=== PATIENT | female | born 2000 | race Caucasian/White ===

== ENCOUNTER 2024-02-11 17:00 | Observation (INO) | payer OTHER, MEDICAID, SELFPAY ==
[2024-02-11 17:15] VITALS: BP 119/68; PULSE 86
[2024-02-11 17:24] LABS: Glucometer 89 mg/dL (74-106)
== END 2024-02-11 17:55 | disposition home or self-care (01) ==
PROVIDERS: Admitting Provider Obstetrics & Gynecology; PCP Family Medicine; Visit Provider Obstetrics & Gynecology
DX: O99.891 Other specified diseases and conditions complicating pregnancy (principal); H53.8 Other visual disturbances; Z3A.33 33 weeks gestation of pregnancy
CPT/HCPCS: 36415; 59025; G0378; G0379

== ENCOUNTER 2024-03-02 16:32 | Observation (INO) | payer OTHER, MEDICAID, SELFPAY ==
--- OUTSIDE RECORDS SUMMARY | 2024-03-02 16:36 | XMS_ITS | CCD ---
Author Organization [facility] Care Team Providers Care Information Systems Security Officer Name Role Phone DEMETRIUS CANTOR Unavailable Unavailable DEMETRIUS CANTOR Unavailable Unavailable RADHIKA MCDONALD Unavailable Unavailable MAVERICK KAISER V Unavailable Unavailable DEMETRIUS CANTOR Unavailable Unavailable Carmen Parker MD Primary Care Provider COLLEEN GARCIA Admitting Unavailable COLLEEN GARCIA Attending Unavailable RADHIKA MCDONALD Primary Care Unavailable RADHIKA MCDONALD Primary Care Unavailable FLOROBEATRIZTONY L Attending Unavailable FLORO, TONY L Attending Unavailable FLORO, TONY L Referring Unavailable FLORO, TONY L Attending Unavailable FLORO, TONY L Attending Unavailable FLORO, TONY L Attending Unavailable FLORO, TONY L Attending Unavailable FLORO, TONY L Referring Unavailable FLORO, TONY L Referring Unavailable FLORO, TONY L Attending Unavailable FLORO, TONY L Attending Unavailable FLORO, TONY L Attending Unavailable Medications Current Medications Medication Drug Class(es) Dates Sig (Normalized) Sig (Original) ondansetron 8 mg disintegrating oral tablet (5 sources) Serotonin-3 Receptor Antagonist Start: 08-17-2023 take 1 tablet by mouth every eight hours for nausea ondansetron ODT (Zofran-ODT) 8 MG disintegrating tablet Indications: Nausea/vomiting in Take 1 tablet (8 mg) by mouth every 8 (eight) hours if needed for nausea or vomiting 30 tablet 1 08/17/2023 Active MV & Min w/FA-DHA ( GUMMIES PO) (5 sources) MV & Mi n w/FA-DHA ( GUMMIES PO) Take by mouth 0 Active Problems Active Problems Problem Classification Problem Date Documented Da te Episodic/Chronic Menstrual disorders (2 sources) Amenorrhea; Translations: [Amenorrhea, unspecified] 08-17-2023 Chronic Other complications of (2 sources) Nausea and vomiting; Translations: [Vomiting of , unspecified] 08-17-2023 Episodic Other complications of (1 source) Injury, poisoning and certain other consequences of external causes complicating , second trimester; Translations: [Injury, poisoning and certain other consequences of external causes complicating , second trimester] Onset: 12-04-2023 Episodic Other and delivery including normal (2 sources) Second trimester ; Translations: [Encounter for supervision of normal first , second trimester] 10-12-2023 Episodic Other screening for suspected conditions (not mental disorders or infectious disease) (2 sources) Patient encounter status; Translations: [Encounter for other specified screening] 10-12-2023 Episodic Residual codes; unclassified (2 sources) Gestation period, 8 weeks; Translations: [8 weeks gestation of ] 08-17-2023 Episodic Unclassified (1 source) Abdominal Pain Onset: 12-04-2023 Unclassified (1 source) Abdominal Injury Onset: 12-04-2023 Past or Other Problems Problem Classification Problem Date Documented Da te Episodic/Chronic Cardiac dysrhythmias (5 sources) Tachycardia, unspecified; Translations: [Palpitations] Onset: 06-09-2017 Episodic Results Test Name Value Interpretation Reference Range Facility US OB FOLLOW UP TRANSABDOMIN AL APPROACHon 01-18-2024 OB FOLLOW UP TRANSABDOMINAL APPROACH FINDINGS: A single, live intrauterine is present with normal cardiac rate of 143 beats per minute. Normal activity and amniotic fluid volume. Amniotic fluid index is 17 cm. Morphology is grossly normal. The cervix is long and closed, 4.0 cm. The placenta is left posterior, not associated with the cervical os. The current sonographic age is 30 weeks and 5 days, based on the following measurements: BPD 7.8 cm (31 weeks, 2 days) Head Circumference 28.0 cm (30 weeks, 5 days) Abdominal Circumference 26.7 cm (30 weeks, 5 days) Femur Length 5.8 cm (30 weeks, 3 days) Presentation Cephalic Placenta Posterior Grade I Weight (g) by Percentile 46.0 % * These measurements result in an estimated date of delivery of March 23, 2024. The current estimated weight is 1620 grams (3 pounds, 9 ounces). IMPRESSION: Single, live intrauterine , current sonographic age of 30 weeks and 5 days, with an estimated date of delivery of March 23, 2024 * Estimated Weight (g) by Percentile is based upon an accurate estimated age based on last menstrual period. TRANSCRIBED BY: ELECTRONICALLY SIGNED BY: Vito Park MD Normal Not Available URN MACROSCOPIC NURon 2023 BILIRUBIN HIEN Negative Normal NEG [facility] Comment on above: Performed By: #### N UM #### [facility] ([id number]) [address] [place] [address] BLOOD/HGB HIEN Negative Normal NEG [facility] Comment on above: Performed By: #### N UM #### [facility] ([id number]) [address] [place] [address] 92487 GLUCOSE HIEN 100 mg/dL Abnormal NEG [facility] Comment on above: Performed By: #### N UM #### [facility] ([id number]) [address] [place] [address] 23006 KETONES HIEN Negative Normal NEG [facility] Comment on above: Performed By: #### N UM #### [facility] ([id number]) [address] [place] [address] 65796 LEUKOCYTE ESTERASE HIEN Small Abnormal NEG [facility] Comment on above: Performed By: #### N UM #### [facility] ([id number]) [address] [place] [address] NITRITE HIEN Negative Normal NEG [facility] Comment on above: Performed By: #### N UM #### [facility] ([id number]) [address] [place] [address] 30397 PH HIEN 7.0 Normal 5.0-8.5 [facility] Comment on above: Performed By: #### N UM #### [facility] ([id number]) [address] [place] [address] PROTEIN HIEN Negative Normal NEG [facility] Comment on above: Performed By: #### N UM #### [facility] ([id number]) [address] [place] [address] SPECIFIC GRAVITY HIEN 1.020 Normal 1.003-1.035 [facility] Comment on above: Performed By: #### N UM #### [facility] ([id number]) [address] [place] [address] UROBILINOGEN HIEN 0.2 eu/dL Normal <1.1 [facility] Comment on above: Performed By: #### N UM #### [facility] ([id number]) [address] [place] [address] 05898 US OB 14+ WEEKS ANATOMY SCAN on 11-09-2023 US OB 14+ WEEKS ANATOMY SCAN FINDINGS: Comparison made with prior examination of August 17, 2023. A single, live intrauterine is present with normal cardiac rate of 153 beats per minute. Normal activity and amniotic fluid volume. Amniotic fluid index is 15.0 cm. Morphology is grossly normal. The cervix is long and closed, 4.8 cm. The placenta is anterior, not associated with the cervical os. The current sonographic age is 20 weeks and 4 days, based on the following measurements: BPD 4.8 cm ( 20weeks, 4 days) Head Circumference 18.1cm (20 weeks, 3 days) Abdominal Circumference 15.6 cm ( 20weeks, 5 days) Femur Length 3.4 cm (20 weeks, 4 days) Presentation Cephalic Placenta Posterior Grade 1 These measurements result in an estimated date of delivery of March 24, 2024. The current estimated weight is 367 grams +/- grams ( pound, 13 ounces). 55.2% weight by percentile. IMPRESSION: Single, live intrauterine , current sonographic age of 20 weeks and 4 days, with an estimated date of delivery of March 24, 2023. Prior examination estimated date of delivery was March 22, 2024. TRANSCRIBED BY: ELECTRONICALLY SIGNED BY: Vito Park MD Normal Not Available HCG ( test) Ql (U)o n 10-08-2023 Interpretation and review of laboratory results Abnormal [facility] Preg Test, Ur Positive [facility] Bacteria identified Cx Nom ( U)on 08-19-2023 Appearance (U) Adequate [facility] Internal identifier for Provider [id number] [facility] Specimen source Nom (Unsp spec) URINE [facility] STATUS FINAL [facility] Laboratory - Drug toxicology on 08-19-2023 8-Vjyhqbsssl-0,5-Dimethy l-3,3-Diphenylpyrrolidin e (EDDP) Ql (U) Negative NINF - 100 ng/mL [facility] Amphetamines Ql (U) Negative NINF - 5 00 ng/mL [facility] Barbiturates Ql (U) Negative NINF - 3 00 ng/mL [facility] Benzodiazepines Ql (U) Negative NINF - 100 ng/mL [facility] Benzoylecgonine Ql (U) Negative NINF - 150 ng/mL [facility] Opiates Ql (U) Negative NINF - 100 ng/mL [facility] oxyCODONE Ql (U) Negative NINF - 100 ng/mL [facility] Phencyclidine Ql (U) Negative NINF - 25 ng/mL [facility] Tetrahydrocannabinol Screen method >20 ng/mL Ql (U) Negative NINF - 20 ng/mL [facility] Laboratory - Microbiology an d Antimicrobial susceptibilityon 08-19-2023 Bacteria identified Cx Nom (U) SEE NOTE [facility] Comment on above: No Growth Laboratory - Urinalysison Bacteria LM.HPF (Urine sed) [#/Area] NONE SEEN NONE SEEN /HPF [facility] Epithelial cells.squamous LM.HPF (Urine sed) [#/Area] 0-5 < OR = 5 /HPF [facility] Hyaline casts (Urine sed) [#/Area] NONE SEEN NONE SEEN /LPF [facility] RBC LM.HPF (Urine sed) [#/Area] NONE SEEN < OR = 2 /HPF [facility] WBC LM.HPF (Urine sed) [#/Area] NONE SEEN < OR = 5 /HPF [facility] No Panel Informationon 08-19 (ALWAYS MESSAGE) [facility] Comment on above: See Note 1 Note 1 This drug testing is for medical treatment only. Analysis was performed as non-forensic testing and these results should be used only by healthcare providers to render diagnosis or treatment, or to monitor progress of medical conditions. For assistance with interpreting these drug results, please contact a [facility] Toxicology Specialist: [phone] [phone] ( ), M-F, 8am-6pm EST. SPLIT 08/17/2023 FROM [id number] [employer] Organization Information Site ID: QPT Name: [facility] Address: [address] [place] [address], [address] [place] [phone] Director: Marv Wilcox MD [facility] CBC panel Auto (Bld)on 08-18 Erythrocyte distribution width (RBC) [Ratio] 12.4 % 11.0 - 15.0 % [facility] Hematocrit (Bld) [Volume fraction] 42.2 % 35.0 - 45.0 % [facility] Hemoglobin (Bld) [Mass/Vol] 14.4 g/dL 11.7 - 15.5 g/dL [facility] MCH (RBC) [Entitic mass] 30.4 pg 27. 0 - 33.0 pg [facility] MCHC (RBC) [Mass/Vol] 34.1 g/dL 32.0 - 36.0 g/dL [facility] MCV (RBC) [Entitic vol] 89.2 fL 80.0 - 100.0 fL [facility] Platelet mean volume (Bld) [Entitic vol] 10.2 fL 7.5 - 12.5 fL [facility] Platelets (Bld) [#/Vol] 272 10*3/uL [facility] RBC (Bld) [#/Vol] 4.73 10*6/uL [facility] WBC (Bld) [#/Vol] 8.7 10*3/uL [facility] Laboratory - Blood bankon ABO group Nom (Bld) A [facility] Blood group antibody screen Ql Detected [facility] Comment on above: Reference range No antibodies detected This assay is a screening test for the detection of red blood cell antibodies. The test is not to be used for pretransfusion screening or for the medical management of an alloimmunized . Rh Nom (Bld) Positive [facility] Comment on above: For additional information, please refer to http://education.Patch of Land/faq/IOF628 (This link is being provided for informational/ educational purposes only.) Laboratory - Chemistry and C hemistry - challengeon 08-18-2023 Free T4 [Mass/Vol] 1.1 ng/dL 0.8 - 1.8 ng/dL [facility] TSH Qn 0.29 m[IU]/L Low mIU/L [facility] Comment on above: Reference Range > or = 20 Years 0.40-4.50 Ranges First trimester 0.26-2.66 Second trimester 0.55-2.73 Third trimester 0.43-2.91 Laboratory - Hematology and Cell countson 08-18-2023 HbA1c (Bld) [Mass fraction] 4.9 % [facility] Comment on above: For the purpose of s creening for the presence of diabetes: <5.7% Consistent with the absence of diabetes 5.7-6.4% Consistent with increased risk for diabetes (prediabetes) > or =6.5% Consistent with diabetes This assay result is consistent with a decreased risk of diabetes. Currently, no consensus exists regarding use of hemoglobin A1c for diagnosis of diabetes in children. According to [place] Diabetes Association (ADA) guidelines, hemoglobin A1c <7.0% represents optimal control in non- diabetic patients. Different metrics may apply to specific patient populations. Standards of Medical Care in Diabetes(ADA). Laboratory - Microbiology an d Antimicrobial susceptibilityon 08-18-2023 HBV surface Ag IA Ql Non-Reactive NON-REACTIVE [facility] Comment on above: For additional information, please refer to http://Writer's Bloq.eASIC/faq/BQJ452 (This link is being provided for informational/ educational purposes only.) HCV Ab IA Ql Non-Reactive NON-REACTIVE [facility] Comment on above: HCV antibody was non-reactive. There is no laboratory evidence of HCV infection. In most cases, no further action is required. However, if recent HCV exposure is suspected, a test for HCV RNA (test code 83292) is suggested. For additional information please refer to http://Writer's Bloq.eASIC/faq/VBL33i7 (This link is being provided for informational/ educational purposes only.) HIV 1+2 Ab+HIV1 p24 Ag IA Ql Non-Reactive NON-REACTIVE [facility] Comment on above: HIV-1 antigen and HI V-1/HIV-2 antibodies were not detected. There is no laboratory evidence of HIV infection. PLEASE NOTE: This information has been disclosed to you from records whose confidentiality may be protected by state law. If your state requires such protection, then the state law prohibits you from making any further disclosure of the information without the specific written consent of the person to whom it pertains, or as otherwise permitted by law. A general authorization for the release of medical or other information is NOT sufficient for this purpose. For additional information please refer to http://Writer's Bloq.eASIC/faq/FCA334 (This link is being provided for informational/ educational purposes only.) The performance of this assay has not been clinically validated in patients less than 2 years old. Reagin Ab RPR Ql (S) Non-Reactive NON-REACTIVE [facility] Rubella virus IgG Qn (S) 11.70 [IU]/mL Index [facility] Comment on above: Index Interpretation ----- <0.90 Not consistent with immunity 0.90-0.99 Equivocal > or = 1.00 Consistent with immunity The presence of rubella IgG antibody suggests immunization or past or current infection with rubella virus. N. gonorrhoeae DNA JOHN+probe Ql (Cervical mucus)on 08-18-2023 (ALWAYS MESSAGE) [facility] Comment on above: The analytical perfo rmance characteristics of this assay, when used to test SurePath(TM) specimens have been determined by [facility]. The modifications have not been cleared or approved by the FDA. This assay has been validated pursuant to the CLIA regulations and is used for clinical purposes. For additional information, please refer to https://education.eASIC/faq/YKG269 (This link is being provided for information/ educational purposes only.) C. trachomatis rRNA JOHN+probe Ql (Unsp spec) Not detected NOT DETECTED [facility] N. gonorrhoeae rRNA JOHN+probe Ql (Unsp spec) Not detected NOT DETECTED [facility] Performing Organization Information Site ID: QPT Name: [facility] Address: [address] [place] [address], [address] [place] [phone] Director: Marv Wilcox MD [facility] No Panel Informationon 08-18 Interpretation and review of laboratory results Abnormal [facility] MULTIPLE COLLECTION TIMES FOR SAME TEST TYPE. [employer] Organization Information Site ID: QPT Name: [facility] Address: Marva Belcher , [address] [place] [address], [place] [phone] Director: Marv Wilcox MD [facility] US OB < 14 WEEKS EARLYon US OB < 14 WEEKS EARLY This is a summary report. The complete report is available in the patient's medical record. If you cannot access the medical record, please contact the sending organization for a detailed fax or copy. US OB < 14 WEEKS EARLY : 08/17/2023 11:55 AM CLINICAL HISTORY: Abdominal pain; nausea. COMPARISON: None available. TECHNIQUE: ROUTINE FINDINGS: The uterus measures 10.8 x 7.9 x 6 cm. A single intrauterine is seen with heart motion of 153 bpm. The sac is located in the fundal region. The gestational age based on this ultrasound is 8 weeks 6 days. The right ovary measures 3.1 x 2.6 x 2.4 cm. The left ovary is not visualized due to overlying bowel gas. The cervix measures 3.8 cm. IMPRESSION: A SINGLE INTRAUTERINE IS SEEN WITH HEART MOTION. THE GESTATIONAL AGE BASED ON THIS EXAMINATION IS 8 WEEKS 6 DAYS WITH AN EXPECTED DUE DATE OF MARCH 22, 2024. ELECTRONICALLY SIGNED BY: Leandra Rios, DO Normal Not Available CBC AUTO DIFFon 06-09-2017 Basophils Auto #/vol (Bld) 0.0 103/ul Normal 0.0-0.1 [facility] Comment on above: Performed By: #### C BC ####[facility] [address] [place], [place] [address]Pwzdxm Arin Basophils/100 WBC Auto (Bld) 0.5 % Normal 0.2-2.0 [facility] Comment on above: Performed By: #### C BC ####[facility] Qsysec[address]ne[address] [place], [place] [address]Gydghb Arin Eosinophils 0.1 103/ul Normal 0.0-0.7 [facility] Comment on above: Performed By: #### C BC ####[facility] [address] [place] [id number] Arin Eosinophils/100 leukocytes 1.8 % Normal 0.9-7.0 [facility] Comment on above: Performed By: #### C BC ####[facility] [address] [place], [place] [address]Imryap Arin Erythrocyte distribution width Auto Ratio (RBC) 12.7 % Normal 11.0-15.0 [facility] Comment on above: Performed By: #### C BC ####[facility] [address] [place] [id number] Arin Erythrocytes (RBC) 4.78 106/ul Normal 4.20-5.40 [facility] Comment on above: Performed By: #### C BC ####[facility] [address] [place], [place] [id number] Arin Hematocrit (HCT) 40.0 % Normal 36.0-48.0 [facility] Comment on above: Performed By: #### C BC ####[facility] [address] [place], [place] [address]Gerken Arin Hemoglobin mass conc (Bld) 13.7 g/dL Normal 12.0-16.0 [facility] Comment on above: Performed By: #### C BC ####[facility] [address] [place], [place] [id number] Arin IG # 0.02 10e3/ul Normal 0.00-0.03 [facility] Comment on above: Performed By: #### C BC ####[facility] [address] [place], [place] [id number] Arin IG % 0.3 % Normal 0.0-0.5 [facility] Comment on above: Performed By: #### C BC ####[facility] [address] [place], [place] [id number] Arin Lymphocytes 1.7 103/ul Normal 1.2-3.8 [facility] Comment on above: Performed By: #### C BC ####[facility] [address] [place], [place] [address]Gerken Arin Lymphocytes/100 leukocytes 28.4 % Normal 20.5-60.0 [facility] Comment on above: Performed By: #### C BC ####[facility] K[address]wp[address] Arin MANUAL DIFF REQ NO Normal [facility] Comment on above: Performed By: #### C BC ####[facility] [address] [place] [id number] Arin MCH 28.7 pg Normal 26.7-34.0 [facility] Comment on above: Performed By: #### C BC ####[facility] G[address] Arin MCHC mass conc (RBC) 34.3 g/dL Normal 29.9-35.2 [facility] Comment on above: Performed By: #### C BC ####[facility] [address] [place] [address] Arin MCV 83.7 fL Normal 81.0-99.0 [facility] Comment on above: Performed By: #### C BC ####[facility] [address] [place], [place] [address]Gerken Arin Monocytes 0.4 103/ul Normal 0.3-0.8 [facility] Comment on above: Performed By: #### C BC ####[facility] [address] [place] [address] Arin Monocytes/100 leukocytes 6.6 % Normal 1.7-12.0 [facility] Comment on above: Performed By: #### C BC ####[facility] [address] [place], [place] [address]Gerken Arin Neutrophils 3.8 103/ul Normal 1.4-6.5 [facility] Comment on above: Performed By: #### C BC ####[facility] [address] [place], [place] [address]Gerken Arin Neutrophils/100 WBC Auto (Bld) 62.4 % Normal 43.0-75.0 [facility] Comment on above: Performed By: #### C BC ####[facility] S[address] Arin Platelet mean volume (PMV) 9.6 fL Normal 9.5-13.5 [facility] Comment on above: Performed By: #### C BC ####[facility] W[address] Arin Platelets 198 103/ul Normal 150-450 [facility] Comment on above: Performed By: #### C BC ####[facility] [address] [place] [address] Arin WBC (Leukocytes) 6.0 103/ul Normal 4.0-11.0 [facility] Comment on above: Performed By: #### C BC ####[facility] [address] [place] [address] Arin D-DIMERon 06-09-2017 D-DIMER COMMENTS SEE BELOW Normal [facility] Comment on above: Result Comment: Incr eases in D-Dimer concentration observed with thromboembolic events can be variable due to localization, size, and age of the thrombus. Therefore, a thromboembolic event cannot be diagnosed with certainty on the basis of the reference range. D-Dimers may also be elevated for a variety of disorders including: advanced age, , coronary disease, cancer, liver disease, infection, inflammation, hematoma, DIC, trauma, post-surgery, diabetes, thrombolytic or anticoagulant therapy, stress, and generalizd hospitalization. Performed By: #### D DIM ####[facility] [address] [place] [address] Arin Fibrin D-dimer FEU 0.23 ug/mL Normal 0.19-0.50 [facility] Comment on above: Performed By: #### D DIM ####[facility] [address] [place] [address] Arin PROF CHEM 8 (BAS METB)on Anion gap 14.7 mmol/L Normal [facility] Comment on above: Performed By: #### B MP ####[facility] [address] [place] [address] Arin BUN/Creatinine Ratio 10.2 mg/mg Normal [facility] Comment on above: Performed By: #### B MP ####[facility] [address] [place] [id number] Arin Calcium 9.3 mg/dL Normal 8.4-10.2 [facility] Comment on above: Performed By: #### B MP ####[facility] [address] [place] [id number] Arin Chloride 108 mmol/L Critically high 98-107 [facility] Comment on above: Performed By: #### B MP ####[facility] [address] [place] [address] Arin CO2 21.0 mmol/L Critically low 22.0-30.0 [facility] Comment on above: Performed By: #### B MP ####[facility] [id number] [place] [address]Gerken Arin Creatinine 0.63 mg/dL Normal 0.52-1.04 [facility] Comment on above: Performed By: #### B MP ####[facility] [address] [place] [id number] Arin eGFR (non-black) mL/min/{1.73_m2} Normal >=60 Th [facility] Comment on above: Performed By: #### B MP ####[facility] [address] [place] [id number] Arin Glucose mass conc 92 mg/dL Normal 74-106 [facility] Comment on above: Performed By: #### B MP ####[facility] [address] [place] [id number] Arin Potassium molar conc 3.7 mmol/L Normal 3.4-5.0 [facility] Comment on above: Performed By: #### B MP ####[facility] [address] [place] [id number] Arin Sodium 140 mmol/L Normal 137-145 [facility] Comment on above: Performed By: #### B MP ####[facility] [address] [place], [place] [address]Inzxej Arin Urea nitrogen 6.0 mg/dL Critically low 6.4-19.3 [facility] Comment on above: Performed By: #### B ####[facility] [address] [place], [place] [address]Lytern Arin XR CHEST 2 Von 06-09-2017 XR CHEST 2 [address] [place] [address] Patient: NORRIS CONTRERAS Exam Date: 06/09/2017DOB: 2000 Gender:F : DEMETRIUS CANTOR Admission #: [id number] : DR RADHIKA MCDONALD M.D. Order #: [id number] HERE TO VIEW EXAM RADIOLOGY REPORT PROCEDURE: RADIOGRAPH CHEST 2 VIEWS COMPARISON: None. INDICATIONS: Acute tachycardia FINDINGS: LUNGS: No significant pulmonary parenchymal abnormalities. VASCULATURE: No increased pulmonary vasculature. PLEURA: No pneumothorax, effusion, or pleural thickening. CARDIAC: No cardiomegaly or cardiac silhouette abnormality. MEDIASTINUM: No visible mass or adenopathy. BONES: No fracture or visible bone lesion. OTHER: Negative. CONCLUSION: No acute disease. Dictated by: Maverick Kaiser M.D. on 06/09/2017 at 13:06 Approved by: Maverick Kaiser M.D. on 06/09/2017 at 13:06 Normal [facility] Vital Signs Date Time Vital Sign Value Performing Clinician Faci lity 10-12-2023 14:18-0500 Body mass index (BMI) [Ratio] 22.78 kg/m2 Tony Availendar [facility] Work Phone: [facility] 10-12-2023 14:18-050 Body weight 63.05 kg Trampoline [facility] Work Phone: [facility] 10-12-2023 14:18-0500 Diastolic blood pressure 70 mm[Hg] Tony Availendar CN Work Phone: [facility] 10-12-2023 14:18-0500 Systolic blood pressure 110 mm[Hg] Tony Availendar [facility] Work Phone: [facility] Encounters Encounter Date Encounter Type Care Provider Facility Start: 02-29-2024 ambulatory TONY L FLORO Not Lore ilable Start: 02-15-2024 End: 02-15-2024 ambulatory TONY L FLORO Not Available Start: 02-01-2024 End: 02-01-2024 ambulatory TONY L FLORO Not Available Start: 01-18-2024 End: 01-18-2024 ambulatory TONY L FLORO Not Available Start: 01-04-2024 End: 01-04-2024 ambulatory TONY L FLORO Not Available Start: 12-07-2023 End: 12-07-2023 ambulatory TONY L FLORO Not Available Start: 12-04-2023 End: 12-04-2023 Emergency department patient visit RADHIKA Sinclair [facility] Start: 12-04-2023 End: 12-04-2023 ambulatory COLLEEN [facility] Start: 11-09-2023 End: 11-09-2023 ambulatory TONY L FLORO Not Available Start: 10-12-2023 End: 10-12-2023 Subsequent care visit Tony L Floro CNM Work Phone: [facility] Comment on above: Encounter for prenat al care of first , second trimester (Primary Dx); Screening, , for anatomic survey Start: 10-12-2023 End: 10-12-2023 ambulatory TONY L FLORO Not Available Start: 10-12-2023 Bamboo flowsheet Tony L Los ro CNM Work Phone: [facility] Start: 10-12-2023 Bamboo flowsheet Tony L Los ro CNM Work Phone: [facility] Start: 09-14-2023 End: 09-14-2023 ambulatory TONY L FLORO Not Available Start: 08-17-2023 End: 08-17-2023 Initial care visit Tony L Floro CNM Work Phone: [facility] Comment on above: GA: 8w3d Start: 08-17-2023 End: 08-17-2023 ambulatory TONY HAM Not Available Start: 06-09-2017 End: 06-09-2017 Ambulatory DEMETRIUS CANTOR Facility:H1 Procedures Date Procedure Procedure Detail Performing Clinician Start: 10-08-2023 Urine test visual color cmprsn meths Tony Vasqueso CNM Work Phone: Start: 08-17-2023 End: 08-17-2023 Culture bacterial quanttative colony count urine Tony Vasqueso CNM Work Phone: Start: 08-17-2023 DRUG TOX MONITORIGN 6 W/ CONF,URINE Tony Vasqueso CNM Work Phone: Start: 08-17-2023 URINALYSIS MICROSCOPIC Tony Vasqueso CNM Work Phone: Start: 08-17-2023 Antibody screen rbc each serum technique Tony Ham CNM Work Phone: Start: 08-17-2023 Hemoglobin glycosyla drake a1c Tony Ham CNM Work Phone: Start: 08-17-2023 TSH W/REFLEX TO FT4 Beatriz hamlet Ham CNM Work Phone: Plan of Treatment Date Care Activity Detail Author Start: 11-09-2023 End: 11-09-2023 Patient encounter procedure 11/09/2023 9:30 AM EDT Routine [facility] [address] [place] [address] Tony Ham, CNM [address] [place], [place] [id number] [facility] Start: 11-09-2023 End: 11-09-2023 Professional / ancillary services management 11/09/2023 9:30 AM EDT Ancillary Procedure [facility] [address] [address] [facility] Start: 10-12-2023 End: 10-12-2023 Patient encounter procedure 10/12/2023 2:30 PM EST Routine [facility] [address] [place] [address] Tony Ham CNM [address] [place], [place] [id number] Arrived [facility] Comment on above: Arrived Start: 10-12-2023 End: 10-12-2024 US for US OB 14+ weeks anatomy scan Imaging Routine Screening, , for anatomic survey Expected: 10/12/2023, Expires: 10/12/2024 [facility] Work Phone: Comment on above: Expected: 10/12/2023 , Expires: 10/12/2024 Start: 10-12-2023 End: 10-12-2023 Patient encounter procedure 10/12/2023 11:30 AM EST Routine [facility] [address] [place] [address] Tony Ham CNM [address] [place] [id number] [facility] Start: 04-30-2023 Influenza vaccination Influenza Vacc ine (#1) [facility] Immunizations Immunization Date Immunization Notes Care Provider Fa [facility] 07-09-2015 influenza virus vacc ine, unspecified formulation Tony Ham [facility] Work Phone: [facility] Payers Date Payer Category Payer Managed Care HMO (unspecified) AETNA AETNA [id number] 2023-Present [address] [place] [address] HMO [id number] 2023 Private Health Insurance [id number] 2022 Medicaid [id number] 2000 Unknown [id number]. 1286 2000 Unknown [id number] [id number]. 9 2000 Unknown [id number] [id number]. 9 1998 Unknown [id number] [id number]. 9 1998 Unknown [id number] 2.16.840.1.288166.3.579.2. 1258 1998 Unknown [id number] 2.16.840.1.755086.3.579.2. 1258 1998 Unknown [id number] 2.16.840.1.542413.3.579.2. 9 1998 Unknown [id number] [id number]. 9 1998 Unknown [id number] 2.16.840.1.000386.3.579.2. 9 1998 Unknown [id number] [id number]. 9 1959 Unknown [id number] Worker's Compensation [id number] Social History Date Type Detail Facility Start: 08-17-2023 Tobacco smoking status MDIS Never sm oked tobacco [facility] Start: 08-17-2023 Tobacco use and exposure Smoke less tobacco non-user [facility] Start: 08-17-2023 Alcohol intake Ex-drinker (finding) [facility] Start: 08-02-2023 End: 08-17-2023 [facility] Start: 08-02-2023 End: 08-17-2023 Alcohol Use Disorder Identification Test - Consumption [AUDIT-C] [facility] How often to you hav e a drink containing alcohol? Monthly or less [facility] How many standard dr inks containing alcohol do you have on a typical day? 1 or 2 [facility] How often do you hav e 6 or more drinks on 1 occasion? Never [facility] Start: 08-02-2023 Alcohol Comment caffeine: 1-2 cups per day [facility] Start: 07-03-2023 [facility] Start: 2000 Sex Assigned At Female [facility] Start: 08-11-2023 Gender identity Identifies as female gender (finding) [facility] Start: 08-11-2023 Sexual orientation Heterosexual (amanda oralia) [facility] History of Present illness Narrative 10-12-2023 Tony Ham CNM - 10/12/2023 2:30 PM EST Note Date & Type Note Facility 10-12-2023 History of Presen t illness Narrative Subjective No chief complaint on file. Norris Contreras is a 23 y.o. at 16w3d with a working estimated date of delivery of 03/25/2024, by Last Menstrual Period who presents for a routine visit. She denies vaginal bleeding, leakage of fluid, decreased movements, or contractions. Her is complicated by: unsure of paternity The following portions of the chart were reviewed this encounter and updated as appropriate: Objective Physical Exam weight: 139 lb Expected Total Weight Gain: 25 lb-35 lb Pregravid BMI: 22.44 BP: 110/70 Urine glucose-negative,protein-negative Labs Imaging Assessment/Plan Diagnoses and all orders for this visit: Encounter for care of first , second trimester Screening, , for anatomic survey - US OB 14+ weeks anatomy scan; Future Continue vitamin. Labs reviewed Follow up in 4 weeks for a routine visit. documented in this encounter [facility] History of Present illness Narrative 08-17-2023 Tony Ham CNM - 08/17/2023 11:00 AM EST Note Date & Type Note Facility 08-17-2023 History of Presen t illness Narrative Subjective Norris Contreras is a 22 y.o. at 8w5d with a working estimated date of delivery of 03/25/2024, by Last Menstrual Period who presents for an initial visit. This is planned. Her is complicated by: none as of this visit OB History Para Term AB Living 1 SAB IAB Ectopic Multiple Live Births # Outcome Date GA Lbr Ralph/2nd Weight Sex Delivery Anes PTL Lv 1 Current Gynecology History The following portions of the chart were reviewed this encounter and updated as appropriate: Review of Systems Objective Physical Exam Expected Total Weight Gain: Could not be calculated Pregravid BMI: Could not be calculated Labs Ordered Assessment/Plan Diagnoses and all orders for this visit: 8 weeks gestation of - Hepatitis B surface antigen - Rubella antibody, IgG - CBC - Antibody screen - RPR - Hemoglobin A1c - TSH W/REFLEX TO FT4; Future - HIV-1 and HIV-2 antibodies - ABO/Rh - DRUG TOX MONITORIGN 6 W/ CONF,URINE; Future - Hepatitis C antibody - Urine culture; Future - URINALYSIS MICROSCOPIC; Future - C. trachomatis / N. gonorrhoeae, DNA probe; Future Amenorrhea - POCT , urine - Hepatitis B surface antigen - Rubella antibody, IgG - CBC - Antibody screen - RPR - Hemoglobin A1c - TSH W/REFLEX TO FT4; Future - HIV-1 and HIV-2 antibodies - ABO/Rh - DRUG TOX MONITORIGN 6 W/ CONF,URINE; Future - Hepatitis C antibody - Urine culture; Future - URINALYSIS MICROSCOPIC; Future Nausea/vomiting in - ondansetron ODT (Zofran-ODT) 8 MG disintegrating tablet; Take 1 tablet (8 mg) by mouth every 8 (eight) hours if needed for nausea or vomiting Other orders - T4, free Blue education folder given. Patient educated on safe medication list. Genetic testing information given. Discussed the do's and don'ts in the blue folder. We discussed labs and what we draw and what we are testing for. Patient is also informed that we do a urine drug test. Patient also given office phone number and [facility] number to call in case of an emergency or after hours needs. PVU and all questions answered. documented in this encounter [facility] Evaluation note Note Date & Type Note Facility Evaluation note Diagnosis 8 weeks gestation of - Primary Amenorrhea Absence of menstruation Nausea/vomiting in Unspecified vomiting of , unspecified as to episode of care documented in this encounter [facility] Evaluation note Note Date & Type Note Facility Evaluation note Diagnosis Encounter for care of first , second trimester- Primary Screening, , for anatomic survey Encounter for anatomic survey documented in this encounter [facility] Summary Purpose Family History No Family History Records FoundNo Family History Records FoundNo Family History Records Found Advance Directives No Advanced Directives Records FoundNo Advanced Directives Records FoundNo Advanced Directives Records Found Reason for Referral Specialty Diagnoses / Procedures Referred By Leigh wright Referred To Contact Obstetrics and Gynecology Diagnoses Amenorrhea 8 weeks gestation of Procedures [place] OFFICE/OUTPATIENT NEW HIGH MDM 60 MINUTES Tony Ham CNM [address] [place] [address] Tony Ham CNM [address] [place] [address] Referral ID Status Reason Start Date Expiration Date Visits Requested Visits Authorized [id number] Pending Review Specialty Services Required 3 02/15/2024 1 1 Additional Source Comments INFORMATION SOURCE (unrecogn ized section and content) DATE CREATED AUTHOR 02/22/2018 [facility] DATE CREATED AUTHOR AUTHOR'S ORGANIZ ATION 12/04/2023 [facility] DATE CREATED AUTHOR AUTHOR'S ORGANIZ ATION 03/01/[address] [facility] dical Specialists EPIC Reason for Visit (unrecogniz ed section and content) Reason Comments Initial Visit Care Teams (unrecognized sec tion and content) Information Systems Security Officer Relationship Specialty Start Date End Date Carmen Parker MD [address] [place] [address] PCP - General Family Medicine 01/05/23 Information Systems Security Officer Relationship Specialty Start Date End Date Carmen Parker MD [address] [place] [address] PCP - General Family Medicine 01/05/23 Information Systems Security Officer Relationship Specialty Start Date End Date Carmen Parker MD [address] [place] [address] PCP - General Family Medicine 01/05/23 FOR RECORDS PERTAINING TO PATIENTS WHO ARE OR HAVE BEEN ENROLLED IN A CHEMICAL DEPENDENCY/SUBSTANCEABUSE PROGRAM, SOME INFORMATION MAY BE OMITTED. This clinical summary was aggregated from multiple sources. Caution should be exercised in using it in the provision of clinical care. This summary normalizes information from multiple sources, and as a consequence, information in this document may materially change the coding, format and clinical context of patient data. In addition, data may be omitted in some cases. CLINICAL DECISIONS SHOULD BE BASED ON THE PRIMARY CLINICAL RECORDS. [facility]. provides no warranty or guarantee of the accuracy or completeness of information in this document.
[2024-03-02 17:16] LABS: Bilirubin Urine NEGATIVE (NEGATIVE); Blood Urine NEGATIVE (NEGATIVE); Clarity Urine CLEAR (CLEAR); Color Urine LT. YELLOW (YELLOW); Glucose Urine UA 250 mg/dL (NEGATIVE); Ketones Urine NEGATIVE (NEGATIVE); Leukocyte Esterase Urine TRACE (NEGATIVE); Nitrite Urine NEGATIVE (NEGATIVE); Protein Urine NEGATIVE (NEG/TRACE); Urobilinogen Urine 0.2 EU/dL (0.2-1.0)
[2024-03-02 17:17] LABS: Urine Microscopic Indicated YES
[2024-03-02 17:23] LABS: Bacteria Urine TRACE #/HPF (NONE SEEN); Mucus Urine NONE SEEN (NONE SEEN); RBC Urine 0-2 #/HPF (0-2); Squamous Epithelial Cell Urine FEW #/LPF (NONE/RARE)
[2024-03-02 17:24] LABS: Amnisure NEGATIVE (NEGATIVE); Internal Control Within Normal Limits
[2024-03-02 17:24] LABS: Cast Seen? NONE SEEN #/LPF (NONE SEEN); Crystals Seen? None Seen #/HPF (None Seen); Urine Culture Indicated NO
== END 2024-03-02 18:07 | disposition home or self-care (01) ==
PROVIDERS: Admitting Provider Midwife; PCP Family Medicine; Visit Provider Midwife
DX: Z03.71 Encounter for suspected problem with amniotic cavity and membrane ruled out (principal); Z3A.36 36 weeks gestation of pregnancy
CPT/HCPCS: 59025; 81001; 84112; G0378; G0379

== ENCOUNTER 2024-03-23 05:42 | Inpatient (IN) | payer OTHER, MEDICAID, SELFPAY ==
[2024-03-23] VITALS (33 sets, daily range): BP systolic 94–177; BP diastolic 51–127; PULSE 65–136; TEMP 36.4–37.1
--- OUTSIDE RECORDS SUMMARY | 2024-03-23 05:45 | XMS_ITS | CCD ---
Author Organization [facility] Care Team Providers Care Aerospace Technician Name Role Phone DEMETRIUS CANTOR Unavailable Unavailable DEMETRIUS CANTOR Unavailable Unavailable RADHIKA MCDONALD Unavailable Unavailable MAVERICK KAISER V Unavailable Unavailable DEMETRIUS CANTOR Unavailable Unavailable Carmen Parker MD Primary Care Provider COLLEEN GARCIA Admitting Unavailable COLLEEN GARCIA Attending Unavailable RADHIKA MCDONALD Primary Care Unavailable RADHIKA MCDONALD Primary Care Unavailable FLORO TONY L Attending Unavailable FLORO, TONY L Attending Unavailable FLORO, TONY L Referring Unavailable FLORO, TONY L Attending Unavailable FLORO, TONY L Attending Unavailable FLORO, TONY L Attending Unavailable FLORO, TONY L Referring Unavailable FLORO, TONY L Attending Unavailable FLORO, TONY L Attending Unavailable FLORO, TONY L Attending Unavailable FLORO, TONY L Referring Unavailable FLORO, TONY L Attending Unavailable Medications [...] NURon 2023 BILIRUBIN HIEN Negative Normal NEG [facility] Comment on above: Performed By: #### N UM #### [facility] ([id number]) [address] [place] [address]12 BLOOD/HGB HIEN Negative Normal NEG [facility] Comment on above: Performed By: #### N UM #### [facility] ([id number]) [address] [place] [address] 03565 GLUCOSE HIEN 100 mg/dL Abnormal NEG [facility] Comment on above: Performed By: #### N UM #### [facility] ([id number]) [address] [place] [address] 84121 KETONES HIEN Negative Normal NEG [facility] Comment on above: Performed By: #### N UM #### [facility] ([id number]) [address] [place] [address] 17272 LEUKOCYTE ESTERASE HIEN Small Abnormal NEG [facility] Comment on above: Performed By: #### N UM #### [facility] ([id number]) [address] [place] [address] 67432 NITRITE HIEN Negative Normal NEG [facility] Comment on above: Performed By: #### N UM #### [facility] ([id number]) [address] [place] [address] 16868 PH HIEN 7.0 Normal 5.0-8.5 [facility] Comment on above: Performed By: #### N UM #### [facility] ([id number]) [address] [place] [address] PROTEIN HIEN Negative Normal NEG [facility] Comment on above: Performed By: #### N UM #### [facility] ([id number]) [address] [place] [address] SPECIFIC GRAVITY HIEN 1.020 Normal 1.003-1.035 [facility] Comment on above: Performed By: #### N UM #### [facility] ([id number]) [address] [place] [address] UROBILINOGEN HIEN 0.2 eu/dL Normal <1.1 [facility] Comment on above: Performed By: #### N UM #### [facility] ([id number]) [address] [place] [address] 12490 US OB 14+ WEEKS ANATOMY SCAN on [...] Interpretation and review of laboratory results Abnormal [facility] Preg Test, Ur Positive [facility] Bacteria identified Cx Nom ( U)on 08-19-2023 Appearance (U) Adequate [facility] Internal identifier for Provider [id number] [facility] Specimen source Nom (Unsp spec) URINE [facility] STATUS FINAL [facility] Laboratory - Drug toxicology on 08-19-2023 6-Ojunfpoiuk-1,5-Dimethy l-3,3-Diphenylpyrrolidin e (EDDP) Ql (U) Negative NINF - 100 ng/mL [facility] Amphetamines Ql (U) Negative NINF - 5 00 ng/mL [facility] Barbiturates Ql (U) Negative NINF - 3 00 ng/mL [facility] Benzodiazepines Ql (U) Negative NINF - 100 ng/mL [facility] Benzoylecgonine Ql (U) Negative NINF - 150 ng/mL [facility] Opiates Ql (U) Negative NINF - 100 ng/mL [facility] oxyCODONE Ql (U) Negative NINF - 100 ng/mL [facility] Phencyclidine Ql (U) Negative NINF - 25 ng/mL [facility] Tetrahydrocannabinol Screen method >20 ng/mL Ql (U) Negative NINF - 20 ng/mL [facility] Laboratory - Microbiology an d Antimicrobial susceptibilityon 08-19-2023 Bacteria identified Cx Nom (U) SEE NOTE [facility] Comment on above: No Growth Laboratory - Urinalysison Bacteria LM.HPF (Urine sed) [#/Area] NONE SEEN NONE SEEN /HPF [facility] Epithelial cells.squamous LM.HPF (Urine sed) [#/Area] 0-5 < OR = 5 /HPF [facility] Hyaline casts (Urine sed) [#/Area] NONE SEEN NONE SEEN /LPF [facility] RBC LM.HPF (Urine sed) [#/Area] NONE SEEN < OR = 2 /HPF [facility] WBC LM.HPF (Urine sed) [#/Area] NONE SEEN < OR = 5 /HPF [facility] No Panel Informationon 08-19 (ALWAYS MESSAGE) [facility] Comment on above: See Note 1 Note 1 This drug testing is for medical treatment only. Analysis was performed as non-forensic testing and these results should be used only by healthcare providers to render diagnosis or treatment, or to monitor progress of medical conditions. For assistance with interpreting these drug results, please contact a [facility] Toxicology Specialist: [phone] [phone] ( ), M-F, 8am-6pm EST. SPLIT 08/17/2023 FROM [id number] Rewarder Organization Information Site ID: QPT Name: [facility] Address: [address] [place] [address], [address] [place] [id number] Director: Marv Wilcox MD [facility] CBC panel Auto (Bld)on 08-18 Erythrocyte distribution width (RBC) [Ratio] 12.4 % 11.0 - 15.0 % [facility] Hematocrit (Bld) [Volume fraction] 42.2 % 35.0 - 45.0 % [facility] Hemoglobin (Bld) [Mass/Vol] 14.4 g/dL 11.7 - 15.5 g/dL [facility] MCH (RBC) [Entitic mass] 30.4 pg 27. 0 - 33.0 pg [facility] MCHC (RBC) [Mass/Vol] 34.1 g/dL 32.0 - 36.0 g/dL [facility] MCV (RBC) [Entitic vol] 89.2 fL 80.0 - 100.0 fL [facility] Platelet mean volume (Bld) [Entitic vol] 10.2 fL 7.5 - 12.5 fL [facility] Platelets (Bld) [#/Vol] 272 10*3/uL [facility] RBC (Bld) [#/Vol] 4.73 10*6/uL [facility] WBC (Bld) [#/Vol] 8.7 10*3/uL [facility] Laboratory - Blood bankon ABO group Nom (Bld) A [facility] Blood group antibody screen Ql Detected [facility] Comment on above: Reference range No antibodies detected This assay is a screening test for the detection of red blood cell antibodies. The test is not to be used for pretransfusion screening or for the medical management of an alloimmunized . Rh Nom (Bld) Positive [facility] Comment on above: For additional information, please refer to http://education.Personaling/faq/ZZQ508 (This link is being provided for informational/ educational purposes only.) Laboratory - Chemistry and C hemistry - challengeon 08-18-2023 Free T4 [Mass/Vol] 1.1 ng/dL 0.8 - 1.8 ng/dL [facility] TSH Qn 0.29 m[IU]/L Low mIU/L [facility] Comment on above: Reference Range > or = 20 Years 0.40-4.50 Ranges First trimester 0.26-2.66 Second trimester 0.55-2.73 Third trimester 0.43-2.91 Laboratory - Hematology and Cell countson 08-18-2023 HbA1c (Bld) [Mass fraction] 4.9 % [facility] Comment on above: For the purpose [...] diagnosis of diabetes in children. According to [place] Diabetes Association (ADA) guidelines, hemoglobin A1c <7.0% represents optimal control in non- diabetic patients. Different metrics may apply to specific patient populations. Standards of Medical Care in Diabetes(ADA). Laboratory - Microbiology an d Antimicrobial susceptibilityon 08-18-2023 HBV surface Ag IA Ql Non-Reactive NON-REACTIVE [facility] Comment on above: For additional information, please refer to http://Sway.Konokopia/faq/CKW067 (This link is being provided for informational/ educational purposes only.) HCV Ab IA Ql Non-Reactive NON-REACTIVE [facility] Comment on above: HCV antibody was non-reactive. There is no laboratory evidence of HCV infection. In most cases, no further action is required. However, if recent HCV exposure is suspected, a test for HCV RNA (test code 61142) is suggested. For additional information please refer to http://Sway.Konokopia/faq/UPK27l0 (This link is being provided for informational/ educational purposes only.) HIV 1+2 Ab+HIV1 p24 Ag IA Ql Non-Reactive NON-REACTIVE [facility] Comment on above: HIV-1 antigen and [...] purpose. For additional information please refer to http://Sway.Konokopia/faq/DQA756 (This link is being provided for informational/ educational purposes only.) The performance of this assay has not been clinically validated in patients less than 2 years old. Reagin Ab RPR Ql (S) Non-Reactive NON-REACTIVE [facility] Rubella virus IgG Qn (S) 11.70 [IU]/mL Index [facility] Comment on above: Index Interpretation ----- <0.90 Not consistent with immunity 0.90-0.99 Equivocal > or = 1.00 Consistent with immunity The presence of rubella IgG antibody suggests immunization or past or current infection with rubella virus. N. gonorrhoeae DNA JOHN+probe Ql (Cervical mucus)on 08-18-2023 (ALWAYS MESSAGE) [facility] Comment on above: The analytical perfo rmance characteristics of this assay, when used to test SurePath(TM) specimens have been determined by [facility]. The modifications have not been cleared or approved by the FDA. This assay has been validated pursuant to the CLIA regulations and is used for clinical purposes. For additional information, please refer to https://education.Konokopia/faq/OKL652 (This link is being provided for information/ educational purposes only.) C. trachomatis rRNA JOHN+probe Ql (Unsp spec) Not detected NOT DETECTED [facility] N. gonorrhoeae rRNA JOHN+probe Ql (Unsp spec) Not detected NOT DETECTED [facility] Performing Organization Information Site ID: QPT Name: [facility] Address: [address] [place] [address], [address] [place] [id number] Director: Marv Wilcox MD [facility] No Panel Informationon 08-18 Interpretation and review of laboratory results Abnormal [facility] MULTIPLE COLLECTION TIMES FOR SAME TEST TYPE. Rewarder Organization Information Site ID: QPT Name: [facility] Address: Marva Belcher , [address] [place] [address], [place] [address] Director: Marv Wilcox MD [facility] US OB < 14 WEEKS EARLYon US [...] (Bld) 0.0 103/ul Normal 0.0-0.1 [facility] Comment on above: Performed By: #### C BC ####[facility] [address] [place], [place] [address]Ivzcdw Arin Basophils/100 WBC Auto (Bld) 0.5 % Normal 0.2-2.0 [facility] Comment on above: Performed By: #### C BC ####[facility] Is[address]uk[address]js[address]98 [place], [place] [address]Njtldq Arin Eosinophils 0.1 103/ul Normal 0.0-0.7 [facility] Comment on above: Performed By: #### C BC ####[facility] [address] [place] [address]Gerken Arin Eosinophils/100 leukocytes 1.8 % Normal 0.9-7.0 [facility] Comment on above: Performed By: #### C BC ####[facility] Y[address]61 [place], [place] [address]Yakoco Arin Erythrocyte distribution width Auto Ratio (RBC) 12.7 % Normal 11.0-15.0 [facility] Comment on above: Performed By: #### C BC ####[facility] Y[address]hfwxnuy7358 [place] [address]Gerken Arni Erythrocytes (RBC) 4.78 106/ul Normal 4.20-5.40 [facility] Comment on above: Performed By: #### C BC ####[facility] [address] [place], [place] [address]Gerken Arin Hematocrit (HCT) 40.0 % Normal 36.0-48.0 [facility] Comment on above: Performed By: #### C BC ####[facility] [address] [place], [place] [address]Gerken Arni Hemoglobin mass conc (Bld) 13.7 g/dL Normal 12.0-16.0 [facility] Comment on above: Performed By: #### C BC ####[facility] [address] [place], [place] [address]Gerken Arin IG # 0.02 10e3/ul Normal 0.00-0.03 [facility] Comment on above: Performed By: #### C BC ####[facility] [address] [place], [place] [address]Gerken Arin IG % 0.3 % Normal 0.0-0.5 [facility] Comment on above: Performed By: #### C BC ####[facility] [address] [place], [place] [address]Gerken Arin Lymphocytes 1.7 103/ul Normal 1.2-3.8 [facility] Comment on above: Performed By: #### C BC ####[facility] [address] [place], [place] [address]Gerken Arin Lymphocytes/100 leukocytes 28.4 % Normal 20.5-60.0 [facility] Comment on above: Performed By: #### C BC ####[facility] Rxydhneqqm[address] Arin MANUAL DIFF REQ NO Normal [facility] Comment on above: Performed By: #### C BC ####[facility] [address] [place] [id number] Arin MCH 28.7 pg Normal 26.7-34.0 [facility] Comment on above: Performed By: #### C BC ####[facility] R[address] Arin MCHC mass conc (RBC) 34.3 g/dL Normal 29.9-35.2 [facility] Comment on above: Performed By: #### C BC ####[facility] [address] [place] [address] Arin MCV 83.7 fL Normal 81.0-99.0 [facility] Comment on above: Performed By: #### C BC ####[facility] [address] [place], [place] [address]Gerken Arin Monocytes 0.4 103/ul Normal 0.3-0.8 [facility] Comment on above: Performed By: #### C BC ####[facility] [address] [place] [address] Arin Monocytes/100 leukocytes 6.6 % Normal 1.7-12.0 [facility] Comment on above: Performed By: #### C BC ####[facility] Gig[address] [place], [place] [address]Gerken Arin Neutrophils 3.8 103/ul Normal 1.4-6.5 [facility] Comment on above: Performed By: #### C BC ####[facility] [address] [place], [place] [address]Gerken Arin Neutrophils/100 WBC Auto (Bld) 62.4 % Normal 43.0-75.0 [facility] Comment on above: Performed By: #### C BC ####[facility] F[address]sh[address]js[address] Arin Platelet mean volume (PMV) 9.6 fL Normal 9.5-13.5 [facility] Comment on above: Performed By: #### C BC ####[facility] Uxlqlwuwdj[address] Arin Platelets 198 103/ul Normal 150-450 [facility] Comment on above: Performed By: #### C BC ####[facility] [address] [place] [address] Arin WBC (Leukocytes) 6.0 103/ul Normal 4.0-11.0 [facility] Comment on above: Performed By: #### C BC ####[facility] [address] [place] [address] Arin D-DIMERon 06-09-2017 D-DIMER COMMENTS SEE BELOW Normal [facility] Comment on above: Result Comment: Incr eases [...] hospitalization. Performed By: #### D DIM ####[facility] [address] [place] [address] Arin Fibrin D-dimer FEU 0.23 ug/mL Normal 0.19-0.50 [facility] Comment on above: Performed By: #### D DIM ####[facility] [address] [place] [address] Arin PROF CHEM 8 (BAS METB)on Anion gap 14.7 mmol/L Normal [facility] Comment on above: Performed By: #### B MP ####[facility] [address] [place] [address] Arin BUN/Creatinine Ratio 10.2 mg/mg Normal [facility] Comment on above: Performed By: #### B MP ####[facility] [address] [place] [id number] Arin Calcium 9.3 mg/dL Normal 8.4-10.2 [facility] Comment on above: Performed By: #### B MP ####[facility] [address] [place] [address] Arin Chloride 108 mmol/L Critically high 98-107 [facility] Comment on above: Performed By: #### B MP ####[facility] [address] [place] [address] Arin CO2 21.0 mmol/L Critically low 22.0-30.0 [facility] Comment on above: Performed By: #### B MP ####[facility] [address] [place] [address] Arin Creatinine 0.63 mg/dL Normal 0.52-1.04 [facility] Comment on above: Performed By: #### B MP ####[facility] [address] [place] [address] Arin eGFR (non-black) mL/min/{1.73_m2} Normal >=60 Th [facility] Comment on above: Performed By: #### B MP ####[facility] [address] [place] [address] Arin Glucose mass conc 92 mg/dL Normal 74-106 [facility] Comment on above: Performed By: #### B MP ####[facility] [address] [place] [address] Arin Potassium molar conc 3.7 mmol/L Normal 3.4-5.0 [facility] Comment on above: Performed By: #### B MP ####[facility] [address] [place] [address] Arin Sodium 140 mmol/L Normal 137-145 [facility] Comment on above: Performed By: #### B MP ####[facility] [address] [place], [place] [address]Sdgydn Arin Urea nitrogen 6.0 mg/dL Critically low 6.4-19.3 [facility] Comment on above: Performed By: #### B ####[facility] [address] [place], [place] [address]Pwfbyq Arin XR CHEST 2 Von 06-09-2017 XR CHEST 2 V [address] [place] [address] Patient: NORRIS CONTRERAS Exam Date: 06/09/2017DOB: 2000 Gender:F : DEMETRIUS CANTOR Admission #: [id number] : DR RADHIKA MCDONALD M.D. Order #: [id number] HERE TO VIEW EXAM RADIOLOGY REPORT PROCEDURE: [...] [facility] M.D. on 06/09/2017 at 13:06 Normal [facility] Vital Signs Date Time Vital Sign Value Performing Clinician Faci lity 10-12-2023 14:18-0500 Body mass index (BMI) [Ratio] 22.78 kg/m2 Tony Mandata (Management & Data Services) [facility] Work Phone: [facility] 10-12-2023 14:18-050 Body weight 63.05 kg [employer] [facility] Work Phone: [facility] 10-12-2023 14:18-0500 Diastolic blood pressure 70 mm[Hg] Tony Mandata (Management & Data Services) CN Work Phone: [facility] 10-12-2023 14:18-0500 Systolic blood pressure 110 mm[Hg] Tony Mandata (Management & Data Services) [facility] Work Phone: [facility] Encounters Encounter Date Encounter Type Care Provider Facility Start: 02-29-2024 End: 02-29-2024 ambulatory TONY L FLORO Not Available Start: 02-15-2024 End: 02-15-2024 ambulatory TONY L FLORO Not Available Start: 02-01-2024 End: 02-01-2024 ambulatory TONY L FLORO Not Available Start: 01-18-2024 End: 01-18-2024 ambulatory TONY L FLORO Not Available Start: 01-04-2024 End: 01-04-2024 ambulatory TONY L FLORO Not Available Start: 12-07-2023 End: 12-07-2023 ambulatory TONY L FLORO Not Available Start: 12-04-2023 End: 12-04-2023 Emergency department patient visit RADHIKA [facility] Start: 12-04-2023 End: 12-04-2023 ambulatory COLLEEN [facility] Start: 11-09-2023 End: 11-09-2023 ambulatory TONY L [...] Start: 06-09-2017 End: 06-09-2017 Ambulatory DEMETRIUS CANTOR Facility: Procedures Date Procedure Procedure Detail Performing Clinician [...] Antibody screen rbc each serum technique Tony Vasqueso CNM Work Phone: Start: 08-17-2023 Hemoglobin glycosyla drake a1c Tony Ham CNM Work Phone: Start: 08-17-2023 TSH W/REFLEX TO FT4 Beatriz hamlet Ham CNM Work Phone: Plan of Treatment Date Care Activity Detail Author Start: 11-09-2023 End: 11-09-2023 Patient encounter procedure 11/09/2023 9:30 AM EDT Routine [facility] [address] [place] [address] Jitendra Tony L, CNM [address] [place] [address] [facility] Start: 11-09-2023 End: 11-09-2023 Professional / ancillary services management 11/09/2023 9:30 AM EDT Ancillary Procedure [facility] [address] [address] [facility] Start: 10-12-2023 End: 10-12-2023 Patient encounter procedure 10/12/2023 2:30 PM EST Routine [facility] [address] [place] [address] Tony Ham, YULIYA [address] [place], [place] [id number] Arrived [facility] Comment on above: Arrived Start: 10-12-2023 End: 10-12-2024 US for US OB 14+ weeks anatomy scan Imaging Routine Screening, , for anatomic survey Expected: 10/12/2023, Expires: 10/12/2024 [facility] Work Phone: Comment on above: Expected: 10/12/2023 , Expires: 10/12/2024 Start: 10-12-2023 End: 10-12-2023 Patient encounter procedure 10/12/2023 11:30 AM EST Routine [facility] [address] [place] [address] [address] [id number] [facility] Start: 04-30-2023 Influenza vaccination Influenza Vacc ine (#1) [facility] Immunizations Immunization Date Immunization Notes Care Provider Fa [facility] 07-09-2015 influenza virus vacc ine, unspecified formulation Tony Ham [facility] Work Phone: [facility] Payers Date Payer Category Payer Managed Care HMO (unspecified) AETNA AETNA [id number] 2023-Present [address] [place] [address] HMO [id number] 2023 Private Health Insurance [id number] 2022 Medicaid [id number] 2000 Unknown [id number]. 1286 2000 Unknown [id number] 2.16.840.1.203777.3.579.2. 9 1998 Unknown [id number] 2.16.840.1.956246.3.579.2. 9 1998 Unknown [id number] 2.16.840.1.420476.3.579.2. 9 1998 Unknown [id number] 2.16.840.1.962861.3.579.2. 9 1998 Unknown [id number] 2.16.840.1.915918.3.579.2. 9 1998 Unknown [id number] 2.16.840.1.704884.3.579.2. 9 1998 Unknown [id number] 2.16.840.1.250616.3.579.2. 9 1998 Unknown [id number] 2.16.840.1.534135.3.579.2. 9 1998 Unknown [id number] 2.16.840.1.981299.3.579.2. 9 1961 Unknown [id number] Worker's Compensation [id number] Social History Date Type Detail Facility Start: [...] day [facility] Start: 07-03-2023 [facility] Start: 2000 Sex Assigned At Female [facility] Start: 08-11-2023 Gender identity Identifies as female gender (finding) [facility] Start: 08-11-2023 Sexual orientation Heterosexual (amanda barton) [facility] History of Present illness Narrative 10-12-2023 [...] a routine visit. documented in this encounter [facility] History of Present illness Narrative 08-17-2023 [...] also given office phone number and The [facility] number to call in case of an emergency or after hours needs. PVU and all questions answered. documented in this encounter [facility] Healthcare Evaluation note Note Date & Type [...] Referral Specialty Diagnoses / Procedures Referred By Conttrevin t Referred To Contact Obstetrics and Gynecology Diagnoses Amenorrhea 8 weeks gestation of Procedures [place] OFFICE/OUTPATIENT NEW HIGH MDM 60 MINUTES Tony Ham CNM [address] [place] [address] Tony Ham CNM [address] [place] [address] Referral ID Status Reason Start Date Expiration Date Visits Requested Visits Authorized [id number] Pending Review Specialty Services Required 3 02/15/2024 1 1 Additional Source Comments INFORMATION SOURCE (unrecogn ized section and content) DATE CREATED AUTHOR 02/22/2018 [facility] DATE CREATED AUTHOR AUTHOR'S ORGANIZ ATION 12/04/2023 [facility] DATE CREATED AUTHOR AUTHOR'S ORGANIZ ATION 03/04/2024 [facility] dical Specialists EPIC Reason for Visit (unrecogniz ed section and content) Reason Comments Initial Visit Care Teams (unrecognized sec tion and content) Aerospace Technician Relationship Specialty Start Date End Date Carmen Parker MD [address] [place] [address] PCP - General Family Medicine 01/05/23 Aerospace Technician Relationship Specialty Start Date End Date Carmen Parker MD [address] [place] [address] PCP - General Family Medicine 01/05/23 Aerospace Technician Relationship Specialty Start Date End Date Carmen Parker MD [address] [place] [address] [phone] (work) PCP - General Family Medicine 01/05/23 FOR [...] BE BASED ON THE PRIMARY CLINICAL RECORDS. [employer] [facility]. provides no warranty or guarantee of the accuracy or completeness of information in this document.
[2024-03-23] MEDS: LACTATED RINGER'S SOLUTION 1,000 ML 125 ML IV ×3 (06:40→18:25)
[2024-03-23 07:12] LABS: Hematocrit 38.3 % (36.0-48.0); Hemoglobin 12.2 g/dL (12.0-16.0); Mean Corpuscular HGB Conc 31.9 g/dL (29.9-35.2); Mean Corpuscular Hemoglobin 26.5 pg (26.7-34.0); Mean Corpuscular Volume 83.1 fL (81.0-99.0); Mean Platelet Volume 10.4 fL (9.5-13.5); Platelet Count 232 10^3/uL (150-450); Red Blood Count 4.61 10^6/uL (4.20-5.40); Red Cell Distribution Width 14.2 % (11.0-15.0); White Blood Count 9.5 10^3/uL (4.0-11.0)
[2024-03-23 08:00] LABS: Amphetamine Screen Urine NEGATIVE (NEGATIVE); Barbiturates Screen Urine NEGATIVE (NEGATIVE); Benzodiazepines Screen Urine NEGATIVE (NEGATIVE); Buprenorphine Screen Urine NEGATIVE (NEGATIVE); Cannabinoid Screen Urine NEGATIVE (NEGATIVE); Cocaine Screen Urine NEGATIVE (NEGATIVE); Methadone Screen Urine NEGATIVE (NEGATIVE); Methamphetamines Screen Urine NEGATIVE (NEGATIVE); Opiate Screen Urine NEGATIVE (NEGATIVE); Oxycodone Screen Urine NEGATIVE (NEGATIVE); Phencyclidine Screen Urine NEGATIVE (NEGATIVE); Tricyclic Antidepressant Urine NEGATIVE (NEGATIVE)
[2024-03-23] MEDS: PENICILLIN G POTASSIUM 5,000,000 UNIT in 0.9 % SODIUM CHLORIDE 100 ML 200 UNIT IV (08:40)
[2024-03-23] MEDS: OXYTOCIN/0.9 % SODIUM CHLORIDE 10 UNITS/500 ML PLAST..BAG 6 UNIT IV (09:15)
[2024-03-23] MEDS: PENICILLIN G POTASSIUM 2,500,000 UNIT in 0.9 % SODIUM CHLORIDE 50 ML 100 UNIT IV ×3 (12:31→20:44)
[2024-03-23] MEDS: CALCIUM CARBONATE 500 MG (200MG ELEMENTAL) TAB CHEW PO (14:43)
[2024-03-23] MEDS: NALBUPHINE HCL 10 MG/ML AMPULE IV (16:55)
[2024-03-23] MEDS: ROPIVACAINE HCL/PF 400 MG/200 ML PREMIX 10 MG EPIDURAL (19:41)
--- NOTE | 2024-03-23 20:41 | PM.OBHP ---
OB - H&P: HPI History of Present Illness Chief complaint: 39 weeks water broke : 1 Para: 0 Gestational age based on last menstrual period: 39.5 History of Present Dating criteria: LMP confirmed by 1st trimester US care: good care Ultrasounds: normal 1st trimester US and normal mid trimester US Medical complications OB: none Narrative: GBS+ positive Labs Blood type: A (+) positive Rubella: immune RPR/VDLR: nonreactive GBS status: positive HBsAG: negative Review of Systems ROS Status of ROS: 10 or more systems reviewed and unremarkable except as noted in history and below [facility] Medical History (Updated 03/23/24 @ 21:04 by TONY HAMILTON APRN, ANJELICA) Hx of scoliosis ?Z87.39 - Personal history of other diseases of the musculoskeletal system and connective tissue (ICD-10) Social History Highest level of school completed/degree received: high school graduate Meds Home Medications and Allergies Home Medications ?Medication ?Instructions ?Recorded ?Confirmed ?Type vit no.105-iron 30 pkg PO DAILY 03/23/24 History mg-folic acid 1.4 mg-dha 300 mg oral pack (Prena1 True) Allergies Allergy/AdvReac Type Severity Reaction Status Date / Time No Known Drug Allergies Allergy Verified 03/23/24 06:24 Exam Constitutional Vital Signs, click to edit/add: Last Vital Signs Temp 97.5 F L 03/23/24 16:00 Pulse 136 H 03/23/24 20:26 Resp 16 03/23/24 06:55 BP 144/80 H 03/23/24 20:26 O2 Del Method Room Air 03/23/24 06:55 Documenting provider has reviewed patient's vital signs: yes Common normals: no apparent distress, average body habitus, oriented x3, no limitations, healthy appearing, alert and well nourished Orientation/consciousness: Yes awake, Yes oriented to person, Yes oriented to place and Yes oriented to time HENMT Common normals: normocephalic Eye Common normals: EOMs intact bilaterally Neck & C-Spine Common normals: full ROM Lymph Lymphatic: no lymphadenopathy noted Chest Common normals: inspection of chest normal Respiratory Common normals: normal respiratory effort Effort & inspection: able to speak in complete sentences Cardio Common normals: regular rate and regular rhythm Rate: regular rate GI Common normals: Normal to inspection, nondistended, normoactive bowel sounds present Inspection: normal to inspection Auscultation: normoactive bowel sounds Common normals: no CVA tenderness Back & Pelvis Common normals: no CVA tenderness Extremity Common normals: normal to inspection and full ROM Neuro Common normals: oriented x3 Sensorium/orientation: awake, alert, oriented to person, oriented to place and oriented to time Psych Common normals: mental status grossly normal, thought process normal, cooperative, affect normal, speech normal, activity/motor behavior normal, denies hallucinations, denies homicidal ideation and denies suicidal ideation Appearance: grossly normal Attitude: calm Results Labs Labs: Short CBC 03/23/24 Range/Units 06:25 WBC 9.5 (4.0-11.0) 10^3/uL Hgb 12.2 (12.0-16.0) g/dL Hct 38.3 (36.0-48.0) % Plt Count 232 (150-450) 10^3/uL OB - A/P Assessment and Plan (1) Term :
--- NOTE | 2024-03-23 22:28 | PM.EN ---
Event Note Event Note: 2213 patient assessed and SVE obtained. Patient is 9/95/+1 and unchanged for about 2 hrs and 15 mins. Cervix is not able to be reduced. patient has minimal expulsatory effort. I did call Dr Mazariegos and report given. Position probable asynclitic since cervix is not changing and station has remained the same at +1 for 3 hours.
[2024-03-23] MEDS: OXYTOCIN/0.9 % SODIUM CHLORIDE 20 UNITS/1,000 ML PLAST..BAG 125 UNIT IV (23:34)
--- NOTE | 2024-03-23 23:50 | PM.OBPRCVD ---
Procedure Procedure: vacuum assisted vaginal delivery with ML episiotomy per Dr Mazariegos events: Labor Augmentation Intrapartal events: None Induction method: none Delivery augmentation: pitocin Delivery monitor: external FHT and external uterine Route of delivery: vacuum extraction Indication for instrumentation: nonreassuring FHR tracing Episiotomy Description: midline L&D Laceration Description: vaginal - 2nd degree Delivery repair: Chromic Estimated blood loss (mL): 350 Anesthesia type: Epidural Delivery date: 03/23/24 Gender: male presentation: vertex Placental delivery description: Spontaneous cord description: 3 Vessels heart rate - 1 minute: 100 bpm or Greater respiratory effort - 1 minute: Spontaneous/Strong Cry muscle tone - 1 minute: Active Movement reflex response - 1 minute: Prompt Response color - 1 minute: Bluish Hands or Feet total score - 1 minute: 9 heart rate - 5 minute: 100 bpm or Greater respiratory effort - 5 minute: Spontaneous/Strong Cry muscle tone - 5 minute: Active Movement reflex response - 5 minute: Prompt Response color - 5 minute: Bluish Hands or Feet total score - 5 minute: 9
[2024-03-24] VITALS (13 sets, daily range): BP systolic 104–197; BP diastolic 55–127; PULSE 75–162; TEMP 36.8–37.3
[2024-03-24] MEDS: KETOROLAC TROMETHAMINE 30 MG/ML VIAL IVP (00:10)
[2024-03-24] MEDS: GLYCERIN/WITCH HAZEL PADS 1 PAD TOPICAL (03:20)
[2024-03-24] MEDS: BENZOCAINE/MENTHOL 85 GRAM SPRAY BOTTLE 1 APPLIC TOPICAL (03:21)
[2024-03-24 06:04] LABS: Basophils Percent Auto 0.1 % (0.2-2.0); Eosinophils Percent Auto 0.3 % (0.9-7.0); Hematocrit 31.5 % (36.0-48.0); Hemoglobin 10.1 g/dL (12.0-16.0); Immature Granulocytes Abs Auto 0.05 10^3/uL (0.00-0.03); Immature Granulocytes Pct Auto 0.4 % (0.0-0.5); Lymphocytes Absolute Auto 1.1 10^3/uL (1.2-3.8); Lymphocytes Percent Auto 8.1 % (20.5-60.0); Mean Corpuscular HGB Conc 32.1 g/dL (29.9-35.2); Mean Corpuscular Hemoglobin 26.3 pg (26.7-34.0); Mean Platelet Volume 9.9 fL (9.5-13.5); Monocytes Absolute Auto 0.9 10^3/uL (0.3-0.8); Monocytes Percent Auto 6.5 % (1.7-12.0); Neutrophils Absolute Auto 11.9 10^3/uL (1.4-6.5); Neutrophils Percent Auto 84.6 % (43.0-75.0); Platelet Count 208 10^3/uL (150-450); Red Blood Count 3.84 10^6/uL (4.20-5.40); White Blood Count 14.1 10^3/uL (4.0-11.0)
[2024-03-24] MEDS: IBUPROFEN 400 MG TABLET 800 MG PO ×3 (07:00→23:19)
--- NOTE | 2024-03-24 12:05 | PM.OBPN ---
OB - PN: Subj Subjective Patient comments: no complaints, tolerating diet and flatus present status: doing well and well feeding status: exclusively Exam Narrative Exam Narrative: voicing no complaints Constitutional Vital Signs, click to edit/add: Last Vital Signs Temp 98.3 F 03/24/24 08:00 Pulse 91 H 03/24/24 08:00 Resp 16 03/24/24 08:00 BP 124/78 03/24/24 08:00 O2 Del Method Room Air 03/24/24 08:00 Documenting provider has reviewed patient's vital signs: yes Common normals: no apparent distress, oriented x3, no limitations, alert and well nourished General appearance: cooperative and comfortable HENMT Common normals: normocephalic and head/scalp atraumatic Eye Pupil: PERRL and accommodation reflex normal Neck & C-Spine Common normals: full ROM and supple Respiratory Common normals: normal respiratory effort Cardio Common normals: regular rate and regular rhythm GI Common normals: Normal to inspection, nondistended, normoactive bowel sounds present, soft to palpation and non-tender Common normals: no CVA tenderness Back & Pelvis Common normals: thoracic and lumbar spine normal to inspection Extremity Common normals: normal to inspection, full ROM and no calf tenderness Neuro Common normals: CN's II-XII intact bilaterally, moves all extremities, no focal motor deficits and no sensory deficits noted Motor exam: strength 5/5 throughout Psych Common normals: mental status grossly normal, thought process normal, cooperative, affect normal, speech normal and activity/motor behavior normal Results Labs Labs: Short CBC 03/24/24 Range/Units 05:53 WBC 14.1 H (4.0-11.0) 10^3/uL Hgb 10.1 L (12.0-16.0) g/dL Hct 31.5 L (36.0-48.0) % Plt Count 208 (150-450) 10^3/uL OB - PN: A/P Assessment and Plan (1) Term : (2) Vacuum-assisted vaginal delivery: Assessment and Plan: midline episiotomy, second degree repair intact, not painful, , vss, voicing no complaints, cbc and dif reviewed Plan routine post care Plan - Vaginal Delivery day: 1 Plan: routine care Time Spent with Patient Time: Total time spent is greater than 50% in coordination of care (as documented) at patient's floor/unit and/or counseling patient: Total time spent with greater than 50% in coordination of care (as documented) at patient's floor/unit and/or counseling patient: less than 15 minutes
--- NOTE | 2024-03-24 19:12 | W.PC.ACHO ---
Registration Status: ADM IN Primary Language: Spanish Preferred Language: Spanish Reported on delivery with vacuum, pain control & . Active Medications Generic Name Dose Route Start Last Admin Trade Name Freq PRN Reason Stop Dose Admin Acetaminophen 650 mg 03/23/24 23:59 Acetaminophen 325 Mg Tablet PO Q6H PRN Mild Pain Al Hydroxide/Mg Hydroxide 2,400 mg 03/24/24 00:04 Magnesium Hydroxide 2,400 Mg/10 Ml Oral.Susp PO Q6H PRN Dyspepsia Benzocaine/Menthol 1 applic 03/23/24 23:59 03/24/24 03:21 Benzocaine/Menthol 85 Gram [place] Bottle TOPICAL 1 applic Q2H PRN Administration Pain Calcium Carbonate 500 mg 03/23/24 14:25 03/23/24 14:43 Calcium Carbonate 500 Mg (200mg Elemental) Tab Chew PO 500 mg TID PRN Administration Heartburn Carboprost Tromethamine 250 mcg 03/23/24 06:10 Carboprost Tromethamine 250 Mcg/Ml 1 Ml Vial IM 03/25/24 06:10 Q15M PRN Bleeding Diphtheria/Pertussis/Tetanus Vacc 0.5 ml 03/26/24 09:00 Adacel Diph,Pertuss(Acell),Tet Vac/Pf 0.5 Ml Adult Syringe IM 03/26/24 09:01 .ONCE ONE Tranexamic Acid 1,000 mg/ 110 mls @ 440 mls/hr 03/23/24 06:10 Sodium Chloride IV ONCE PRN Uterine Bleeding Lactated Ringer's 1,000 mls @ 125 mls/hr 03/23/24 06:30 03/23/24 18:25 Lactated Ringers IV 125 mls/hr .Q8H EFRAIN Administration Penicillin G Potassium 2,500, 50 mls @ 100 mls/hr 03/23/24 11:00 03/23/24 21:15 000 unit/ Sodium Chloride IV Infused Q4H EFRAIN Infusion Ropivacaine/Sodium Chloride 400 mg in 200 mls @ 6 mls/hr 03/23/24 07:45 03/23/24 19:41 Naropin 0.2% 400 Mg/200 Ml Bag EPIDURAL 10 mls/hr Q24H EFRAIN Administration Oxytocin/Sodium Chloride 10 units in 500 mls @ 6 mls/hr 03/23/24 07:45 03/23/24 15:06 Pitocin 10 Unit/500 Ml-Ns IV 16 milliunit/min TITR EFRAIN 48 mls/hr Infusion Protocol 2 MILLIUNIT/MIN Ibuprofen 800 mg 03/24/24 07:00 03/24/24 15:06 Ibuprofen 400 Mg Tablet PO 800 mg Q8H EFRAIN Administration Lidocaine 5 ml 03/23/24 06:10 Lidocaine Viscous 2% 15 Ml Solution TOPICAL 03/25/24 06:13 ONCE PRN Pain Lidocaine 1 ml 03/23/24 06:10 Lidocaine Hcl 1% 200 Mg/20 Ml Mdv INJ 03/25/24 06:13 ONCE PRN Pain Measles/Mumps/Rubella Vaccine Live 0.5 ml 03/26/24 09:00 Measles,Mumps,Rubella Vacc/Pf 0.5 Ml Vial SQ 03/26/24 09:01 .ONCE ONE Methylergonovine Maleate 0.2 mg 03/23/24 06:10 Methylergonovine Maleate 0.2 Mg/Ml Ampule IM 03/25/24 06:10 ONCE PRN Uterine Contractility/Contract Methylergonovine Maleate 0.2 mg 03/23/24 06:10 Methylergonovine Maleate 0.2 Mg Tablet PO 03/25/24 06:10 Q4H PRN Uterine Contractility/Contract Misoprostol 600 mcg 03/23/24 06:10 Misoprostol 100 Mcg Tablet PO 03/25/24 06:10 ONCE PRN Uterine Bleeding Misoprostol 800 mcg 03/23/24 06:10 Misoprostol 100 Mcg Tablet SL 03/25/24 06:10 ONCE PRN Uterine Bleeding Misoprostol 1,000 mcg 03/23/24 06:10 Misoprostol 100 Mcg Tablet AL 03/25/24 06:10 ONCE PRN Uterine Bleeding Nalbuphine HCl 10 mg 03/23/24 06:10 03/23/24 16:55 Nalbuphine Hcl 10 Mg/Ml Ampule IV 10 mg Q3H PRN Administration Pain Ondansetron HCl 4 mg 03/23/24 06:10 Ondansetron Pf 4 Mg/2 Ml Vial IV Q6H PRN Nausea And Vomiting Ondansetron HCl 4 mg 03/23/24 06:10 Ondansetron 4 Mg Rapdis Tablet SL Q6H PRN Nausea And Vomiting Oxytocin 10 unit 03/23/24 06:10 Oxytocin 10 Unit/Ml Vial IM 03/25/24 06:10 ONCE PRN Bleeding Simethicone 80 mg 03/23/24 23:59 Simethicone 80 Mg Tab.Chew PO QID PRN Abdominal Distention Temazepam 15 mg 03/24/24 00:04 Temazepam 15 Mg Capsule PO QHS PRN Sleep Witch Chasity/Glycerin 1 pad 03/23/24 23:59 03/24/24 03:20 Glycerin/Witch Chasity Pads TOPICAL 1 pad Q2H PRN Administration Pain Diet Category Date Time Status Regular Consistency Diet Diet 03/23/24 23:59 Active Respiratory Oxygen Delivery Method Room Air Oxygen Delivery Method Room Air Oxygen Delivery Method Room Air Cardiology Heart Sounds Strong,Regular
[2024-03-24] MEDS: DOCUSATE SODIUM 100 MG CAPSULE PO (21:41)
[2024-03-25 07:06] LABS: Basophils Absolute Auto 0.1 10^3/uL (0.0-0.1); Basophils Percent Auto 0.5 % (0.2-2.0); Eosinophils Absolute Auto 0.2 10^3/uL (0.0-0.7); Eosinophils Percent Auto 1.6 % (0.9-7.0); Hematocrit 29.6 % (36.0-48.0); Hemoglobin 9.4 g/dL (12.0-16.0); Immature Granulocytes Abs Auto 0.05 10^3/uL (0.00-0.03); Immature Granulocytes Pct Auto 0.5 % (0.0-0.5); Lymphocytes Absolute Auto 1.9 10^3/uL (1.2-3.8); Lymphocytes Percent Auto 17.3 % (20.5-60.0); Mean Corpuscular HGB Conc 31.8 g/dL (29.9-35.2); Mean Corpuscular Hemoglobin 26.3 pg (26.7-34.0); Mean Corpuscular Volume 82.7 fL (81.0-99.0); Monocytes Absolute Auto 0.8 10^3/uL (0.3-0.8); Neutrophils Percent Auto 73.1 % (43.0-75.0); Platelet Count 201 10^3/uL (150-450); Red Blood Count 3.58 10^6/uL (4.20-5.40); Red Cell Distribution Width 14.4 % (11.0-15.0); White Blood Count 10.9 10^3/uL (4.0-11.0)
[2024-03-25 07:49] VITALS: BP 122/70; PULSE 81
[2024-03-25] MEDS: IBUPROFEN 400 MG TABLET 800 MG PO (07:52)
[2024-03-25 10:01] VITALS: TEMP 37.2
--- NOTE | 2024-03-25 10:58 | PM.OBDS ---
DS: Providers Provider Date of admission: 03/23/24 06:38 Primary care physician: RADHIKA MCDONALD Admitting clinician: TONY HAMILTON Attending physician on admission: Leeann Mazariegos Consults: 03/23/24 Consult to Anesthesiology Routine Consulting Provider: Jeffrey Hidalgo Reason for consultation: Epidural Discharging clinician: Leeann Mazariegos Anticipated date of discharge: 03/25/24 DS: Diagnosis Discharge Diagnosis (1) Vacuum-assisted vaginal delivery: Assessment and plan: ASKING TO GO HOME, NO PROBLEMS, CLINICAL EXAM NORMAL, BABY DOING WELL, INSTRUCTIONS GIVEN ALL QUESTIONS ANSWERED AND STATED UNDERSTANDING Plan ABOVE OB - DS: Summary Hospital Course Hospital Course: UNCOMPLICATED Time spent discussing smoking cessation with patient: 3 to 10 minutes Peripartum Data - Vaginal Delivery Laceration description: perineal - 2nd degree Episiotomy Description: midline Complications complications: none Delivery method: assisted vaginal delivery Gender: male Discharge plan: home Status at Discharge Cognitive/behavioral status at discharge: WNL Functional status at discharge: independent ambulation Overall status at discharge: patient is progressing back to baseline Time Spent with Patient Time attestation: Total time spent providing and/or coordinating discharge services: Time spent: less than 30 minutes Exam Narrative Exam Narrative: VOICES NO COMPLAINTS Constitutional Vital Signs, click to edit/add: Last Vital Signs Temp 98.9 F 03/25/24 10:01 Pulse 81 03/25/24 07:49 Resp 16 03/25/24 10:01 BP 122/70 03/25/24 07:49 O2 Del Method Room Air 03/24/24 17:00 Documenting provider has reviewed patient's vital signs: yes Common normals: no apparent distress, oriented x3, no limitations, healthy appearing and alert [facility] Common normals: normocephalic and head/scalp atraumatic Eye Common normals: PERRL Pupil: accommodation reflex normal Neck & C-Spine Common normals: full ROM and supple Respiratory Common normals: normal respiratory effort Cardio Common normals: regular rate and regular rhythm GI Common normals: Normal to inspection, nondistended, normoactive bowel sounds present, soft to palpation and non-tender Common normals: no CVA tenderness Back & Pelvis Common normals: no thoracic nor lumbar tenderness Extremity Common normals: normal to inspection and full ROM Neuro Common normals: CN's II-XII intact bilaterally Motor exam: strength 5/5 throughout Psych Common normals: mental status grossly normal, thought process normal, cooperative, affect normal and speech normal DS: Data Data Completed and Pending Labs on day of discharge: Labs from last 24 hours 03/25/24 06:48 WBC 10.9 RBC 3.58 L Hgb 9.4 L Hct 29.6 L MCV 82.7 MCH 26.3 L MCHC 31.8 RDW 14.4 Plt Count 201 MPV 10.0 Neut % (Auto) 73.1 Lymph % (Auto) 17.3 L [place] % (Auto) 7.0 Eos % (Auto) 1.6 Baso % (Auto) 0.5 Neut # (Auto) 8.0 H Lymph # (Auto) 1.9 [place] # (Auto) 0.8 Eos # (Auto) 0.2 Baso # (Auto) 0.1 Abs Immat Gran (auto) 0.05 H Imm/Tot Granulo (auto) 0.5 Discharge Plan Discharge Disposition: Home, Self-Care Condition: Good Assessment: VSS, BREAST FEEDING WITHOUT PROBLEM, GOOD SUPPORTS AT HOME, PERINEUM INTACT, NORMAL LO[place]IA Plan of Treatment: DISCHARGE HOME Discharge Medications: Continued Prena1 True 30 mg iron- 1.4 mg-300 mg combo pack PO DAILY Activity: resume usual activities as tolerated Activity Detail: WALKING ONLY EXERCISE FOR 4 WEEKS, NO SWIMMING FOR 4 WEEKS Diet: regular diet Print Language: [place] Patient Instructions: Vaginal Delivery (DC) Activity Restrictions/Additional Instructions: NO SEX SIX WEEKS, POST EXAM IN SIX WEEKS TO BE SCHEDULED, CALL FOR PROBLEM OR CONCERN, SPORTS BRA 22/03 IF DECIDES TO STOP BREAST FEEDING, MINIMIZE TIME IN CAR FOR 4 WEEKS, FINISH PNV Forms: Portal Instructions Follow Up Appointments: SIX WEEKS WITH OB PROVIDER Discharge location: HOME
== END 2024-03-25 15:30 | disposition home or self-care (01) | DRG 807 ==
PROVIDERS: Admitting Provider Midwife; PCP Family Medicine; Visit Provider Midwife
DX: O99.824 Streptococcus B carrier state complicating childbirth (principal); Z37.0 Single live birth; O76 Abnormality in fetal heart rate and rhythm complicating labor and delivery; Z3A.39 39 weeks gestation of pregnancy; O70.1 Second degree perineal laceration during delivery
CPT/HCPCS: 36415; 51702; 59050; 59410; 80307; 85025; 85027; 86850; 86900; 86901; 96365; 96366; 96375; 96376; J1885; J2300; J2540; J2795

== ENCOUNTER 2024-03-28 09:21 | Outpatient (OUT) | payer OTHER, MEDICAID, SELFPAY ==
--- OUTSIDE RECORDS SUMMARY | 2024-03-28 09:33 | XMS_ITS | CCD ---
Author Organization [facility] Care Team Providers Care Shell Press Operator Name Role Phone DEMETRIUS CANTOR Unavailable Unavailable DEMETRIUS CANTOR Unavailable Unavailable RADHIKA MCDONALD Unavailable Unavailable MAVERICK KAISER V Unavailable Unavailable DEMETRIUS CANTOR Unavailable Unavailable Carmen Parker MD Primary Care Provider COLLEEN GARCIA Admitting Unavailable COLLEEN GARCIA Attending Unavailable RADHIKA MCDONALD F Primary Care Unavailable RADHIKA MCDONALD F Primary Care Unavailable FLOROBEATRIZOTNY L Attending Unavailable FLORO, TONY L Attending [...] Attending Unavailable FLORO, TONY L Referring Unavailable Medications Current Medications Medication Drug Class(es) [...] NURon 2023 BILIRUBIN HIEN Negative Normal NEG [facility] Comment on above: Performed By: #### N UM #### [facility] ([id number]) [address] [place] [address] BLOOD/HGB HIEN Negative Normal NEG [facility] Comment on above: Performed By: #### N UM #### [facility] ([id number]) [address] [place] [address] GLUCOSE HIEN 100 mg/dL Abnormal NEG [facility] Comment on above: Performed By: #### N UM #### [facility] ([id number]) [address] [place] [address] KETONES HIEN Negative Normal NEG [facility] Comment on above: Performed By: #### N UM #### [facility] ([id number]) [address] [place] [address] 02638 LEUKOCYTE ESTERASE HIEN Small Abnormal NEG [facility] Comment on above: Performed By: #### N UM #### [facility] ([id number]) [address] [place] [address] 10898 NITRITE HIEN Negative Normal NEG [facility] Comment on above: Performed By: #### N UM #### [facility] ([id number]) [address] [place] [address] 56155 PH HIEN 7.0 Normal 5.0-8.5 [facility] Comment on above: Performed By: #### N UM #### [facility] ([id number]) [address] [place] [address] PROTEIN HIEN Negative Normal NEG [facility] Comment on above: Performed By: #### N UM #### [facility] ([id number]) [address] [place] [address] SPECIFIC GRAVITY HIEN 1.020 Normal 1.003-1.035 [facility] Comment on above: Performed By: #### N UM #### [facility] ([id number]) [address] [place] [address] 88551 UROBILINOGEN HIEN 0.2 eu/dL Normal <1.1 [facility] Comment on above: Performed By: #### N UM #### [facility] ([id number]) [address] [place] [address] 92222 US OB 14+ WEEKS ANATOMY SCAN on [...] Interpretation and review of laboratory results Abnormal [facility] Preg Test, Ur Positive [facility] Bacteria identified Cx Nom ( U)on 08-19-2023 Appearance (U) Adequate [facility] Internal identifier for Provider [id number] [facility] Specimen source Nom (Unsp spec) URINE [facility] STATUS FINAL [facility] Laboratory - Drug toxicology on 08-19-2023 7-Ayyxqzibye-7,5-Dimethy l-3,3-Diphenylpyrrolidin e (EDDP) Ql (U) Negative NINF - 100 ng/mL [facility] Amphetamines Ql (U) Negative NINF - 5 00 ng/mL [facility] Barbiturates Ql (U) Negative NINF - 3 00 ng/mL [facility] Benzodiazepines Ql (U) Negative NINF - 100 ng/mL [facility] Benzoylecgonine Ql (U) Negative NINF - 150 ng/mL [facility] Opiates Ql (U) Negative NINF - 100 ng/mL [facility] oxyCODONE Ql (U) Negative NINF - 100 ng/mL [facility] Phencyclidine Ql (U) Negative NINF - 25 ng/mL [facility] Tetrahydrocannabinol Screen method >20 ng/mL Ql (U) Negative NINF - 20 ng/mL [facility] Laboratory - Microbiology an d Antimicrobial susceptibilityon 08-19-2023 Bacteria identified Cx Nom (U) SEE NOTE [facility] Comment on above: No Growth Laboratory - Urinalysison Bacteria LM.HPF (Urine sed) [#/Area] NONE SEEN NONE SEEN /HPF [facility] Epithelial cells.squamous LM.HPF (Urine sed) [#/Area] 0-5 < OR = 5 /HPF [facility] Hyaline casts (Urine sed) [#/Area] NONE SEEN NONE SEEN /LPF [facility] RBC LM.HPF (Urine sed) [#/Area] NONE SEEN < OR = 2 /HPF [facility] WBC LM.HPF (Urine sed) [#/Area] NONE SEEN < OR = 5 /HPF [facility] No Panel Informationon 08-19 (ALWAYS MESSAGE) [facility] Comment on above: See Note 1 Note 1 This drug testing is for medical treatment only. Analysis was performed as non-forensic testing and these results should be used only by healthcare providers to render diagnosis or treatment, or to monitor progress of medical conditions. For assistance with interpreting these drug results, please contact a [employer] Toxicology Specialist: [phone] [phone] ( ), M-F, 8am-6pm EST. SPLIT 08/17/2023 FROM [id number] LastRoom Organization Information Site ID: QPT Name: [employer] [facility] Address: [address] [place] [address], [address] [place] [id number] Director: Marv Wilcox MD [facility] CBC panel Auto (Bld)on 08-18 Erythrocyte distribution width (RBC) [Ratio] 12.4 % 11.0 - 15.0 % [facility] Hematocrit (Bld) [Volume fraction] 42.2 % 35.0 - 45.0 % [facility] Hemoglobin (Bld) [Mass/Vol] 14.4 g/dL 11.7 - 15.5 g/dL [facility] MCH (RBC) [Entitic mass] 30.4 pg 27. 0 - 33.0 pg [facility] MCHC (RBC) [Mass/Vol] 34.1 g/dL 32.0 - 36.0 g/dL [facility] MCV (RBC) [Entitic vol] 89.2 fL 80.0 - 100.0 fL [facility] Platelet mean volume (Bld) [Entitic vol] 10.2 fL 7.5 - 12.5 fL [facility] Platelets (Bld) [#/Vol] 272 10*3/uL [facility] RBC (Bld) [#/Vol] 4.73 10*6/uL [facility] WBC (Bld) [#/Vol] 8.7 10*3/uL [facility] Laboratory - Blood bankon ABO group Nom (Bld) A [facility] Blood group antibody screen Ql Detected [facility] Comment on above: Reference range No antibodies detected This assay is a screening test for the detection of red blood cell antibodies. The test is not to be used for pretransfusion screening or for the medical management of an alloimmunized . Rh Nom (Bld) Positive [facility] Comment on above: For additional information, please refer to http://[facility]/faq/QGH251 (This link is being provided for informational/ educational purposes only.) Laboratory - Chemistry and C hemistry - challengeon 08-18-2023 Free T4 [Mass/Vol] 1.1 ng/dL 0.8 - 1.8 ng/dL [facility] TSH Qn 0.29 m[IU]/L Low mIU/L [facility] Comment on above: Reference Range > or = 20 Years 0.40-4.50 Ranges First trimester 0.26-2.66 Second trimester 0.55-2.73 Third trimester 0.43-2.91 Laboratory - Hematology and Cell countson 08-18-2023 HbA1c (Bld) [Mass fraction] 4.9 % [facility] Comment on above: For the purpose [...] diagnosis of diabetes in children. According to [place] Diabetes Association (ADA) guidelines, hemoglobin A1c <7.0% represents optimal control in non- diabetic patients. Different metrics may apply to specific patient populations. Standards of Medical Care in Diabetes(ADA). Laboratory - Microbiology an d Antimicrobial susceptibilityon 08-18-2023 HBV surface Ag IA Ql Non-Reactive NON-REACTIVE [facility] Comment on above: For additional information, please refer to http://[facility]/faq/XSU644 (This link is being provided for informational/ educational purposes only.) HCV Ab IA Ql Non-Reactive NON-REACTIVE [facility] Comment on above: HCV antibody was non-reactive. There is no laboratory evidence of HCV infection. In most cases, no further action is required. However, if recent HCV exposure is suspected, a test for HCV RNA (test code 80211) is suggested. For additional information please refer to http://[facility]/faq/AXS54h8 (This link is being provided for informational/ educational purposes only.) HIV 1+2 Ab+HIV1 p24 Ag IA Ql Non-Reactive NON-REACTIVE [facility] Comment on above: HIV-1 antigen and [...] purpose. For additional information please refer to http://[facility]/faq/PKF195 (This link is being provided for informational/ educational purposes only.) The performance of this assay has not been clinically validated in patients less than 2 years old. Reagin Ab RPR Ql (S) Non-Reactive NON-REACTIVE [facility] Rubella virus IgG Qn (S) 11.70 [IU]/mL Index [facility] Comment on above: Index Interpretation ----- <0.90 Not consistent with immunity 0.90-0.99 Equivocal > or = 1.00 Consistent with immunity The presence of rubella IgG antibody suggests immunization or past or current infection with rubella virus. N. gonorrhoeae DNA JOHN+probe Ql (Cervical mucus)on 08-18-2023 (ALWAYS MESSAGE) [facility] Comment on above: The analytical perfo rmance characteristics of this assay, when used to test SurePath(TM) specimens have been determined by [employer]. The modifications have not been cleared or approved by the FDA. This assay has been validated pursuant to the CLIA regulations and is used for clinical purposes. For additional information, please refer to https://[facility]/faq/VWF210 (This link is being provided for information/ educational purposes only.) C. trachomatis rRNA JOHN+probe Ql (Unsp spec) Not detected NOT DETECTED [facility] N. gonorrhoeae rRNA JOHN+probe Ql (Unsp spec) Not detected NOT DETECTED [facility] Performing Organization Information Site ID: QPT Name: [employer] [facility] Address: [address], [address] [place] [address] Director: Marv Wilcox MD [facility] No Panel Informationon 08-18 Interpretation and review of laboratory results Abnormal [facility] MULTIPLE COLLECTION TIMES FOR SAME TEST TYPE. [facility] Organization Information Site ID: QPT Name: [employer] [facility] Address: [address], [address] [place] [address] Director: Marv Wilcox MD [facility] US OB < 14 WEEKS EARLYon US [...] #/vol (Bld) 0.0 103/ul Normal 0.0-0.1 [facility] Comment on above: Performed By: #### C BC ####[facility] [address] [place], [place] [address]Lpntoy Arin Basophils/100 WBC Auto (Bld) 0.5 % Normal 0.2-2.0 [facility] Comment on above: Performed By: #### C BC ####[facility] [address] [place], [place] [address]Ahlqck Arin Eosinophils 0.1 103/ul Normal 0.0-0.7 [facility] Comment on above: Performed By: #### C BC ####[facility] Q[address] Arin Eosinophils/100 leukocytes 1.8 % Normal 0.9-7.0 [facility] Comment on above: Performed By: #### C BC ####[facility] P[address]px[address] Arin Erythrocyte distribution width Auto Ratio (RBC) 12.7 % Normal 11.0-15.0 [facility] Comment on above: Performed By: #### C BC ####[facility] [address] [place] [address] Arin Erythrocytes (RBC) 4.78 106/ul Normal 4.20-5.40 [facility] Comment on above: Performed By: #### C BC ####[facility] [address] [place] [address] Arin Hematocrit (HCT) 40.0 % Normal 36.0-48.0 [facility] Comment on above: Performed By: #### C BC ####[facility] [address] [place] [address] Arin Hemoglobin mass conc (Bld) 13.7 g/dL Normal 12.0-16.0 [facility] Comment on above: Performed By: #### C BC ####[facility] [address] [place] [address] Arin IG # 0.02 10e3/ul Normal 0.00-0.03 [facility] Comment on above: Performed By: #### C BC ####[facility] [address] [place] [address] Arin IG % 0.3 % Normal 0.0-0.5 [facility] Comment on above: Performed By: #### C BC ####[facility] [address] [place] [address] Arin Lymphocytes 1.7 103/ul Normal 1.2-3.8 [facility] Comment on above: Performed By: #### C BC ####[facility] [address] [place] [id number] Arin Lymphocytes/100 leukocytes 28.4 % Normal 20.5-60.0 [facility] Comment on above: Performed By: #### C BC ####[facility] [address] [place] [id number] Arin MANUAL DIFF REQ NO Normal [facility] Comment on above: Performed By: #### C BC ####[facility] [address] [place], [place] [id number] Arin MCH 28.7 pg Normal 26.7-34.0 [facility] Comment on above: Performed By: #### C BC ####[facility] I[address]xi[address] Arin MCHC mass conc (RBC) 34.3 g/dL Normal 29.9-35.2 [facility] Comment on above: Performed By: #### C BC ####[facility] [address] [place] [address] Arin MCV 83.7 fL Normal 81.0-99.0 [facility] Comment on above: Performed By: #### C BC ####[facility] [address] [place], [place] [address]Gerken Arin Monocytes 0.4 103/ul Normal 0.3-0.8 [facility] Comment on above: Performed By: #### C BC ####[facility] [address] [place], [place] [address]Gerken Arin Monocytes/100 leukocytes 6.6 % Normal 1.7-12.0 [facility] Comment on above: Performed By: #### C BC ####[facility] [address] [place], [place] [address]Gerken Arin Neutrophils 3.8 103/ul Normal 1.4-6.5 [facility] Comment on above: Performed By: #### C BC ####[facility] [address] [place], [place] [address]Gerken Arin Neutrophils/100 WBC Auto (Bld) 62.4 % Normal 43.0-75.0 [facility] Comment on above: Performed By: #### C BC ####[facility] [address] [place] [id number] Arin Platelet mean volume (PMV) 9.6 fL Normal 9.5-13.5 [facility] Comment on above: Performed By: #### C BC ####[facility] [address] [place] [address] Arin Platelets 198 103/ul Normal 150-450 [facility] Comment on above: Performed By: #### C BC ####[facility] [address] [place], [place] [address]Gerghada Hinkle WBC (Leukocytes) 6.0 103/ul Normal 4.0-11.0 [facility] Comment on above: Performed By: #### C BC ####[facility] [address] [place] [address] Arin D-DIMERon 06-09-2017 D-DIMER COMMENTS SEE BELOW Normal [facility] Comment on above: Result Comment: Incr [...] generalizd hospitalization. Performed By: #### D DIM ####[facility] [address] [place], [place] [id number] Arin Fibrin D-dimer FEU 0.23 ug/mL Normal 0.19-0.50 [facility] Comment on above: Performed By: #### D DIM ####[facility] [address] [place] [id number] Arin PROF CHEM 8 (BAS METB)on Anion gap 14.7 mmol/L Normal [facility] Comment on above: Performed By: #### B MP ####[facility] [address] [place] [id number] Arin BUN/Creatinine Ratio 10.2 mg/mg Normal [facility] Comment on above: Performed By: #### B MP ####[facility] [address] [place] [id number] Arin Calcium 9.3 mg/dL Normal 8.4-10.2 [facility] Comment on above: Performed By: #### B MP ####[facility] [address] [place] [id number] Arin Chloride 108 mmol/L Critically high 98-107 [facility] Comment on above: Performed By: #### B MP ####[facility] [address] [place], [place] [address]Gerken Arin CO2 21.0 mmol/L Critically low 22.0-30.0 [facility] Comment on above: Performed By: #### B MP ####[facility] [address] [place], [place] [address]Gerken Arin Creatinine 0.63 mg/dL Normal 0.52-1.04 [facility] Comment on above: Performed By: #### B MP ####[facility] [address] [place], [place] [address]Gerken Arin eGFR (non-black) mL/min/{1.73_m2} Normal >=60 Th [facility] Comment on above: Performed By: #### B MP ####[facility] [address] [place] [id number] Arin Glucose mass conc 92 mg/dL Normal 74-106 [facility] Comment on above: Performed By: #### B MP ####[facility] [address] [place] [address]Ger[address] Arin Potassium molar conc 3.7 mmol/L Normal 3.4-5.0 [facility] Comment on above: Performed By: #### B MP ####[facility] [address] [place], [place] [id number] Arin Sodium 140 mmol/L Normal 137-145 [facility] Comment on above: Performed By: #### B MP ####[facility] [address] [place], [place] [address]Aathrv Arin Urea nitrogen 6.0 mg/dL Critically low 6.4-19.3 [facility] Comment on above: Performed By: #### B MP ####[facility] [address] [place] [id number] Arin XR CHEST 2 Von 06-09-2017 XR CHEST 2 V [address] [place] [address] Patient: NORRIS CONTRERAS Exam Date: 06/09/2017DOB: 2000 Gender:F : DEMETRIUS CANTOR Admission #: [id number] : DR RADHIKA MCDONALD M.D. Order #: [id number] HERE TO VIEW EXAM RADIOLOGY REPORT PROCEDURE: [...] [facility] M.D. on 06/09/2017 at 13:06 Normal [facility] Vital Signs Date Time Vital Sign Value Performing Clinician Faci lity 10-12-2023 14:18-0500 Body mass index (BMI) [Ratio] 22.78 kg/m2 [facility] 10-12-2023 14:18-050 Body weight 63.05 kg Tony i[facility]GA [facility]wn[facility] Work Phone: [facility] 10-12-2023 14:18-0500 Diastolic blood pressure 70 mm[Hg] [facility] Work [facility] 10-12-2023 14:18-0500 Systolic blood pressure 110 mm[Hg] Tony Floro CNM Work Phone: [facility] Encounters Encounter Date Encounter Type Care Provider Facility Start: 03-22-2024 End: 03-22-2024 ambulatory TONY L FLORO Not Available Start: 03-14-2024 End: 03-14-2024 ambulatory TONY L FLORO Not Available Start: 03-07-2024 End: 03-07-2024 ambulatory TONY L FLORO Not Available Start: 02-29-2024 End: 02-29-2024 ambulatory TONY L [...] End: 12-04-2023 [facility]: 12-04-2023 End: 12-04-2023 ambulatory [facility] Start: 11-09-2023 End: 11-09-2023 ambulatory TONY L [...] OB Start: 09-14-2023 End: 09-14-2023 ambulatory TONY ORDONEZO Not Available Start: 08-17-2023 End: 08-17-2023 Initial care visit Tony Ordonezo CNM Work Phone: [facility] Comment on above: GA: 8w3d Start: 08-17-2023 End: 08-17-2023 ambulatory TONY ORDONEZO Not Available Start: 06-09-2017 End: 06-09-2017 Ambulatory DEMETRIUS Dixon DEVAUGHN Facility: Procedures Date Procedure Procedure Detail Performing Clinician Start: 10-08-2023 Urine test visual color cmprsn meths Tony Ordonezo CNM Work Phone: Start: 08-17-2023 End: 08-17-2023 Culture bacterial quanttative colony count urine Tony Ordonezo CNM Work Phone: Start: 08-17-2023 DRUG TOX MONITORIGN 6 W/ CONF,URINE Tony Ordonezo CNM Work Phone: Start: 08-17-2023 URINALYSIS MICROSCOPIC Tony Kirill Ordonezo CNM Work Phone: Start: 08-17-2023 Antibody screen rbc each serum technique Tony Kirill Ordonezo CNM Work Phone: Start: 08-17-2023 Hemoglobin glycosyla drake a1c Tony Ordonezo CNM Work Phone: Start: 08-17-2023 TSH W/REFLEX TO FT4 Beatriz hamlet Ordonezo CNM Work Phone: Plan of Treatment Date Care Activity Detail Author Start: 11-09-2023 End: 11-09-2023 Patient encounter procedure 11/09/2023 9:30 AM EDT Routine [facility] [address] [place] [address] Tony Ham CNM [address] [place] [address] [facility] Start: 11-09-2023 End: 11-09-2023 Professional / ancillary services management 11/09/2023 9:30 AM EDT Ancillary Procedure [facility] [address] [id number] [facility] Start: 10-12-2023 End: 10-12-2023 Patient encounter procedure 10/12/2023 2:30 PM EST Routine [facility] [address] [place] [id number] Tony Ham, ANJELICA [address] [place], [place] [id number] Arrived [facility] Comment on above: Arrived Start: 10-12-2023 End: 10-12-2024 US for US OB 14+ weeks anatomy scan Imaging Routine Screening, , for anatomic survey Expected: 10/12/2023, Expires: 10/12/2024 [facility] Work Phone: Comment on above: Expected: 10/12/2023 , Expires: 10/12/2024 Start: 10-12-2023 End: 10-12-2023 Patient encounter procedure 10/12/2023 11:30 AM EST Routine [facility] [address] [place] [address] Tony Ham CNM [address] [place] [address] [facility] Start: 04-30-2023 Influenza vaccination Influenza Vacc ine (#1) [facility] Immunizations Immunization Date Immunization Notes Care Provider Fa cili 07-09-2015 influenza virus vacc ine, unspecified formulation Tony Ham CNM Work Phone: [facility] Payers Date Payer Category Payer Managed Care HMO (unspecified) [employer] A[employer] [id number] 2023-Present [address] [place] [address] O [id number] 2023 Private Health Insurance [id number] 2022 Medicaid [id number] 2000 Unknown [id number] 2.16.840.1.353485.3.579.2. 1286 2000 Unknown [id number] 2.16.840.1.731924.3.579.2. 1259 1998 Unknown [id number] 2.16.840.1.816428.3.579.2. 9 1998 Unknown [id number] 2.16.840.1.490191.3.579.2. 9 1998 Unknown [id number] 2.16.840.1.331742.3.579.2. 9 1998 Unknown [id number] 2.16.840.1.894753.3.579.2. 9 1998 Unknown [id number] 2.16.840.1.492571.3.579.2. 9 1998 Unknown [id number] 2.16.840.1.102048.3.579.2. 9 1998 Unknown [id number] 2.16.840.1.982494.3.579.2. 9 1998 Unknown [id number] 2.16.840.1.640929.3.579.2. 1259 1998 Unknown [id number] 2.16.840.1.139841.3.579.2. 9 1998 Unknown [id number] 2.16.840.1.858612.3.579.2. 9 1998 Unknown [id number] 2.16.840.1.661205.3.579.2. 1259 1959 Unknown [id number] Worker's Compensation [id number] Social History Date Type Detail Facility Start: 08-17-2023 Tobacco smoking status NHIS Never sm oked tobacco [facility] Start: [...] [facility] Start: 08-11-2023 Sexual orientation Heterosexual (fin ding) [facility] History of Present illness Narrative [...] a routine visit. documented in this encounter [facility] History of Present illness Narrative 08-17-2023 [...] also given office phone number and [facility] number to call in case of an emergency or after hours needs. PVU and all questions answered. documented in this encounter [facility] Healthcare Evaluation note Note Date & Type Note Facility Evaluation note Diagnosis 8 weeks gestation of - Primary Amenorrhea Absence of menstruation Nausea/vomiting in Unspecified vomiting of , unspecified as to episode of care documented in this encounter [facility] Healthcare Evaluation note Note Date & Type Note Facility Evaluation note Diagnosis Encounter for care of first , second trimester- Primary Screening, , for anatomic survey Encounter for anatomic survey documented in this encounter [facility] Healthcare Summary Purpose Family History No Family History Records FoundNo Family History Records FoundNo Family History Records Found Advance Directives No Advanced Directives Records FoundNo Advanced Directives Records FoundNo Advanced Directives Records Found Reason for Referral Specialty Diagnoses / Procedures Referred By Leigh wright Referred To Contact Obstetrics and Gynecology Diagnoses Amenorrhea 8 weeks gestation of Procedures SD OFFICE/OUTPATIENT NEW HIGH MDM 60 MINUTES Tony Ham CNM [address] [place] [address] Tony Ham CNM [address] [place] [address] Referral ID Status Reason Start Date Expiration Date Visits Requested Visits Authorized [id number] Pending Review Specialty Services Required 3 02/15/2024 1 1 Additional Source Comments INFORMATION SOURCE (unrecogn ized section and content) DATE CREATED AUTHOR 02/22/2018 [facility] DATE CREATED AUTHOR AUTHOR'S ORGANIZ ATION 12/04/2023 [facility] DATE CREATED AUTHOR AUTHOR'S ORGANIZ ATION 03/26/2024 [facility] EPIC Reason for Visit (unrecogniz ed section and content) Reason Comments Initial Visit Care Teams (unrecognized sec tion and content) [employer] Relationship Specialty Start Date End Date Carmen Parker MD [address] [place] [id number] PCP - General Family Medicine 01/05/23 [employer] Relationship Specialty Start Date End Date Carmen Parker MD [address] [place] [id number] PCP - General Family Medicine 01/05/23 [employer] Relationship Specialty Start Date End Date Carmen Parker MD [address] [place], [place] [id number] PCP - General Family Medicine 01/05/23 FOR [...] BE BASED ON THE PRIMARY CLINICAL RECORDS. [facility] [employer] [facility]. provides no warranty or guarantee of the accuracy or completeness of information in this document.
--- NOTE | 2024-03-28 15:11 | PC.NURSE ---
Bina, 5 day old Nina arrive for visit with OLAYINKA. Infant has been doing serial bili levels and is awaiting results. Parents state everything going well for baby except for jaundice. Parents report 5-6 wets in last 12 hours and 4 brown to yellow stools in last 12 hours. Mom reports breasts are full as milk really started coming in last night . Mom describes scabbed, excoriated nipples, right nipple was bleeding last night as well. weight down 10.7% at this time. Baby to breast , nipples painful 5/10, bilaterally excoriated and creased. Discussed deep latch and benefits for both baby and mom. Mom allows shallow latch and grimaces. Simply pulls baby off breast to remove. Instructed on proper removal by breaking suction. Demo of deeper latch, asymmetrical and reviewed advantages for mom and baby. Mom reports relief of nipple pain with deep latch. Able to return demo for 2nd breast independently. Demo of care of breasts with tea bags, lanolin, soothies and shells. Pt voices relief when using tea bags and shells. Pt to return 04/03/2024 for support. Baby to see PCP Susie 03/30/2024 for care as well.
== END 2024-03-28 14:00 | disposition home or self-care (01) ==
PROVIDERS: PCP Family Medicine; Visit Provider Obstetrics & Gynecology
DX: Z39.2 Encounter for routine postpartum follow-up (principal)

== ENCOUNTER 2024-04-03 08:19 | Outpatient (OUT) | payer OTHER, MEDICAID, SELFPAY ==
--- OUTSIDE RECORDS SUMMARY | 2024-04-03 08:23 | XMS_ITS | CCD ---
Author Organization [facility] Care Team Providers Care Mental Health Coordinator Name Role Phone DEMETRIUS CANTOR Unavailable Unavailable DEMETRIUS CANTOR Unavailable Unavailable RADHIKA MCDONALD Unavailable Unavailable MAVERICK KAISER V Unavailable Unavailable DEMETRIUS CANTOR Unavailable Unavailable Carmen Parker MD Primary Care Provider COLLEEN GARCIA Admitting Unavailable COLLEEN GARCIA Attending Unavailable RADHIKA MCDONALD F Primary Care Unavailable RADHIKA MCDONALD F Primary Care Unavailable FLORO, TONY L Attending Unavailable FLORO, [...] Test Name Value Interpretation Reference Range Facility OB FOLLOW UP TRANSABDOMIN AL APPROACHon 01-18-2024 [...] BILIRUBIN HIEN Negative Normal NEG [facility] Comment on above: Performed By: #### N UM #### [facility] ([id number]) [address] [place] [address] 14178 BLOOD/HGB HIEN Negative Normal NEG [facility] Comment on above: Performed By: #### N UM #### [facility] ([id number]) [address] [place] [address] 26022 GLUCOSE HIEN 100 mg/dL Abnormal NEG [facility] Comment on above: Performed By: #### N UM #### [facility] ([id number]) [address] [place] [address] 92170 KETONES HIEN Negative Normal NEG [facility] Comment on above: Performed By: #### N UM #### [facility] ([id number]) [address] [place] [address] 41399 LEUKOCYTE ESTERASE HIEN Small Abnormal NEG [facility] Comment on above: Performed By: #### N UM #### [facility] ([id number]) [address] [place] [address] 42077 NITRITE HIEN Negative Normal NEG [facility] Comment on above: Performed By: #### N UM #### [facility] ([id number]) [address] [place] [address] 57856 PH HIEN 7.0 Normal 5.0-8.5 [facility] Comment on above: Performed By: #### N UM #### [facility] ([id number]) [address] [place] [address] PROTEIN HIEN Negative Normal NEG [facility] Comment on above: Performed By: #### N UM #### [facility] ([id number]) [address] [place] [address] SPECIFIC GRAVITY HIEN 1.020 Normal 1.003-1.035 [facility] Comment on above: Performed By: #### N UM #### [facility] ([id number]) [address] [place] [address] UROBILINOGEN HIEN 0.2 eu/dL Normal <1.1 [facility] Comment on above: Performed By: #### N UM #### [facility] ([id number]) [address] [place] [address] 90117 US OB 14+ WEEKS ANATOMY SCAN on [...] Interpretation and review of laboratory results Abnormal [facility] Preg Test, Ur Positive [facility] Bacteria identified Cx Nom ( U)on 08-19-2023 Appearance (U) Adequate [facility] Internal identifier for Provider [id number] [facility] Specimen source Nom (Unsp spec) URINE [facility] STATUS FINAL [facility] Laboratory - Drug toxicology on 08-19-2023 0-Tosgspwagb-8,5-Dimethy l-3,3-Diphenylpyrrolidin e (EDDP) Ql (U) Negative NINF - 100 ng/mL [facility] Amphetamines Ql (U) Negative NINF - 5 00 ng/mL [facility] Barbiturates Ql (U) Negative NINF - 3 00 ng/mL [facility] Benzodiazepines Ql (U) Negative NINF - 100 ng/mL [facility] Benzoylecgonine Ql (U) Negative NINF - 150 ng/mL [facility] Opiates Ql (U) Negative NINF - 100 ng/mL [facility] oxyCODONE Ql (U) Negative NINF - 100 ng/mL [facility] Phencyclidine Ql (U) Negative NINF - 25 ng/mL [facility] Tetrahydrocannabinol Screen method >20 ng/mL Ql (U) Negative NINF - 20 ng/mL [facility] Laboratory - Microbiology an d Antimicrobial susceptibilityon 08-19-2023 Bacteria identified Cx Nom (U) SEE NOTE [facility] Comment on above: No Growth Laboratory - Urinalysison Bacteria LM.HPF (Urine sed) [#/Area] NONE SEEN NONE SEEN /HPF [facility] Epithelial cells.squamous LM.HPF (Urine sed) [#/Area] 0-5 < OR = 5 /HPF [facility] Hyaline casts (Urine sed) [#/Area] NONE SEEN NONE SEEN /LPF [facility] RBC LM.HPF (Urine sed) [#/Area] NONE SEEN < OR = 2 /HPF [facility] WBC LM.HPF (Urine sed) [#/Area] NONE SEEN < OR = 5 /HPF [facility] No Panel Informationon 08-19 (ALWAYS MESSAGE) [facility] Comment on above: See Note 1 Note 1 This drug testing is for medical treatment only. Analysis was performed as non-forensic testing and these results should be used only by healthcare providers to render diagnosis or treatment, or to monitor progress of medical conditions. For assistance with interpreting these drug results, please contact a [facility] Toxicology Specialist: [phone] ( ), M-F, 8am-6pm EST. SPLIT 08/17/2023 FROM [id number] [facility] Organization Information Site ID: QPT Name: [facility] Address: [address] [place] [address], [address] [place] [id number] Director: Marv Wilcox MD [facility] CBC panel Auto (Bld)on 08-18 Erythrocyte distribution width (RBC) [Ratio] 12.4 % 11.0 - 15.0 % [facility] Hematocrit (Bld) [Volume fraction] 42.2 % 35.0 - 45.0 % [facility] Hemoglobin (Bld) [Mass/Vol] 14.4 g/dL 11.7 - 15.5 g/dL [facility] MCH (RBC) [Entitic mass] 30.4 pg 27. 0 - 33.0 pg [facility] MCHC (RBC) [Mass/Vol] 34.1 g/dL 32.0 - 36.0 g/dL [facility] MCV (RBC) [Entitic vol] 89.2 fL 80.0 - 100.0 fL [facility] Platelet mean volume (Bld) [Entitic vol] 10.2 fL 7.5 - 12.5 fL [facility] Platelets (Bld) [#/Vol] 272 10*3/uL [facility] RBC (Bld) [#/Vol] 4.73 10*6/uL [facility] WBC (Bld) [#/Vol] 8.7 10*3/uL [facility] Laboratory - Blood bankon ABO group Nom (Bld) A [facility] Blood group antibody screen Ql Detected [facility] Comment on above: Reference range No antibodies detected This assay is a screening test for the detection of red blood cell antibodies. The test is not to be used for pretransfusion screening or for the medical management of an alloimmunized . Rh Nom (Bld) Positive [facility] Comment on above: For additional information, please refer to http://Ocean Outdoor.CrowdMob/faq/UDI014 (This link is being provided for informational/ educational purposes only.) Laboratory - Chemistry and C hemistry - challengeon 08-18-2023 Free T4 [Mass/Vol] 1.1 ng/dL 0.8 - 1.8 ng/dL [facility] TSH Qn 0.29 m[IU]/L Low mIU/L [facility] Comment on above: Reference Range > or = 20 Years 0.40-4.50 Ranges First trimester 0.26-2.66 Second trimester 0.55-2.73 Third trimester 0.43-2.91 Laboratory - Hematology and Cell countson 08-18-2023 HbA1c (Bld) [Mass fraction] 4.9 % [facility] Comment on above: For the purpose of s creening for the presence of diabetes: <5.7% Consistent with the absence of diabetes 5.7-6.4% Consistent with increased risk for diabetes (prediabetes) > or =6.5% Consistent with diabetes This assay result is consistent with a decreased risk of diabetes. Currently, no consensus exists regarding use of hemoglobin A1c for diagnosis of diabetes in children. According to [place] Diabetes Association (ADA) guidelines, hemoglobin A1c <7.0% represents optimal control in non- diabetic patients. Different metrics may apply to specific patient populations. Standards of Medical Care in Diabetes(ADA). Laboratory - Microbiology an d Antimicrobial susceptibilityon 08-18-2023 HBV surface Ag IA Ql Non-Reactive NON-REACTIVE [facility] Comment on above: For additional information, please refer to http://Ocean Outdoor.PacketFront/faq/FYE488 (This link is being provided for informational/ educational purposes only.) HCV Ab IA Ql Non-Reactive NON-REACTIVE [facility] Comment on above: HCV antibody was non-reactive. There is no laboratory evidence of HCV infection. In most cases, no further action is required. However, if recent HCV exposure is suspected, a test for HCV RNA (test code 07967) is suggested. For additional information please refer to http://education.PacketFront/faq/XID54m6 (This link is being provided for informational/ educational purposes only.) HIV 1+2 Ab+HIV1 p24 Ag IA Ql Non-Reactive NON-REACTIVE [facility] Comment on above: HIV-1 antigen and HI [...] purpose. For additional information please refer to http://Ocean Outdoor.PacketFront/faq/AKV099 (This link is being provided for informational/ educational purposes only.) The performance of this assay has not been clinically validated in patients less than 2 years old. Reagin Ab RPR Ql (S) Non-Reactive NON-REACTIVE [facility] Rubella virus IgG Qn (S) 11.70 [IU]/mL Index [facility] Comment on above: Index Interpretation ----- <0.90 Not consistent with immunity 0.90-0.99 Equivocal > or = 1.00 Consistent with immunity The presence of rubella IgG antibody suggests immunization or past or current infection with rubella virus. N. gonorrhoeae DNA JOHN+probe Ql (Cervical mucus)on 08-18-2023 (ALWAYS MESSAGE) [facility] Comment on above: The analytical perfo rmance characteristics of this assay, when used to test SurePath(TM) specimens have been determined by [facility]. The modifications have not been cleared or approved by the FDA. This assay has been validated pursuant to the CLIA regulations and is used for clinical purposes. For additional information, please refer to https://Ocean Outdoor.PacketFront/faq/UAT618 (This link is being provided for information/ educational purposes only.) C. trachomatis rRNA JOHN+probe Ql (Unsp spec) Not detected NOT DETECTED [facility] N. gonorrhoeae rRNA JOHN+probe Ql (Unsp spec) Not detected NOT DETECTED [facility] Performing Organization Information Site ID: QPT Name: [facility] Address: [address] [place] [address] Director: Marv Wilcox MD [facility] No Panel Informationon 08-18 Interpretation and review of laboratory results Abnormal [facility] MULTIPLE COLLECTION TIMES FOR SAME TEST TYPE. [facility] Organization Information Site ID: QPT Name: [facility] Address: [address], [address] [place] [address] Director: Marv Wilcox MD [facility] US OB < 14 WEEKS EARLYon US [...] #/vol (Bld) 0.0 103/ul Normal 0.0-0.1 [facility] Comment on above: Performed By: #### C BC ####[facility] Sdjipvbvey49[address] [place] Basophils/100 WBC Auto (Bld) 0.5 % Normal 0.2-2.0 [facility] Comment on above: Performed By: #### C BC ####[facility] Ugqugvimbb4206 [address] [place] Eosinophils 0.1 103/ul Normal 0.0-0.7 [facility] Comment on above: Performed By: #### C BC ####[facility] Zdahoelz[address] [place], [place] [address]en Eosinophils/100 leukocytes 1.8 % Normal 0.9-7.0 [facility] Comment on above: Performed By: #### C BC ####[facility] Enyiucqcag7374 [address] [place] Erythrocyte distribution width Auto Ratio (RBC) 12.7 % Normal 11.0-15.0 [facility] Comment on above: Performed By: #### C BC ####[facility] [address] [place] [address] Arin Erythrocytes (RBC) 4.78 106/ul Normal 4.20-5.40 [facility] Comment on above: Performed By: #### C BC ####[facility] [address] [place] [address] [place] Hematocrit (HCT) 40.0 % Normal 36.0-48.0 [facility] Comment on above: Performed By: #### C BC ####[facility] S[address] [place] [address] Ar[place] Hemoglobin mass conc (Bld) 13.7 g/dL Normal 12.0-16.0 [facility] Comment on above: Performed By: #### C BC ####[facility] Q[address] [place] [address] Arin IG # 0.02 10e3/ul Normal 0.00-0.03 [facility] Comment on above: Performed By: #### C BC ####[facility] Au[address]ztleys[address] [place] [address] Arin IG % 0.3 % Normal 0.0-0.5 [facility] Comment on above: Performed By: #### C BC ####[facility] Vufefabzac[address] [place] [address] Ar[place] Lymphocytes 1.7 103/ul Normal 1.2-3.8 [facility] Comment on above: Performed By: #### C BC ####[facility] [address] [place] [address]Gerken [place] Lymphocytes/100 leukocytes 28.4 % Normal 20.5-60.0 [facility] Comment on above: Performed By: #### C BC ####[facility] Soygc[address]oyh[address] [place] [address]Gerken [place] MANUAL DIFF REQ NO Normal [facility] Comment on above: Performed By: #### C BC ####[facility] Wewswypsyk[address]19 [place] [address]Gerken [place] MCH 28.7 pg Normal 26.7-34.0 [facility] Comment on above: Performed By: #### C BC ####[facility] [address] [place] [address] Arin MCHC mass conc (RBC) 34.3 g/dL Normal 29.9-35.2 [facility] Comment on above: Performed By: #### C BC ####[facility] E[address] [place] [address] Arin MCV 83.7 fL Normal 81.0-99.0 [facility] Comment on above: Performed By: #### C BC ####[facility] Sl[address] [place], [place] [address]Gerken Ar[place] Monocytes 0.4 103/ul Normal 0.3-0.8 [facility] Comment on above: Performed By: #### C BC ####[facility] Hamuzraied0493 [place] [address]Gerken [place] Monocytes/100 leukocytes 6.6 % Normal 1.7-12.0 [facility] Comment on above: Performed By: #### C BC ####[facility] Pheeafnrsp[address] [place], [place] [address]Gerken Arin Neutrophils 3.8 103/ul Normal 1.4-6.5 [facility] Comment on above: Performed By: #### C BC ####[facility] G[address] [place], [place] [address]Gerken Arin Neutrophils/100 WBC Auto (Bld) 62.4 % Normal 43.0-75.0 [facility] Comment on above: Performed By: #### C BC ####[facility] Vspbm[address]uvf5[address] [place] [id number] [place] Platelet mean volume (PMV) 9.6 fL Normal 9.5-13.5 [facility] Comment on above: Performed By: #### C BC ####[facility] Bitjxxmnxv0585 [address] [place] Platelets 198 103/ul Normal 150-450 [facility] Comment on above: Performed By: #### C BC ####[facility] L[address] [place], [place] [address]ghada Hinkle WBC (Leukocytes) 6.0 103/ul Normal 4.0-11.0 [facility] Comment on above: Performed By: #### C BC ####[facility] [address] [place] [address] Arin D-DIMERon 06-09-2017 D-DIMER COMMENTS SEE BELOW Normal [facility] Comment on above: Result Comment: Incr eases [...] generalizd hospitalization. Performed By: #### D DIM ####[facility] Abuibrtqfx5712 [address] [place] Fibrin D-dimer FEU 0.23 ug/mL Normal 0.19-0.50 [facility] Comment on above: Performed By: #### D DIM ####[facility] Mvpkffcjil9666 [address] [place] PROF CHEM 8 (BAS METB)on Anion gap 14.7 mmol/L Normal [facility] Comment on above: Performed By: #### B MP ####[facility] Jgvpmqrxab6564 [place] [id number] [place] BUN/Creatinine Ratio 10.2 mg/mg Normal [facility] Comment on above: Performed By: #### B MP ####[facility] V[address]ai54[address] [place], [place] [address]Ujwxyz Arin Calcium 9.3 mg/dL Normal 8.4-10.2 [facility] Comment on above: Performed By: #### B MP ####[facility] Iopyabmixb9262 [place] [id number] [place] Chloride 108 mmol/L Critically high 98-107 [facility] Comment on above: Performed By: #### B MP ####[facility] Y[address] [place], [place] [address]Ger[address] Arin CO2 21.0 mmol/L Critically low 22.0-30.0 [facility] Comment on above: Performed By: #### B MP ####[facility] F[address]rires[address] [place], [place] [address]Gerken Arin Creatinine 0.63 mg/dL Normal 0.52-1.04 [facility] Comment on above: Performed By: #### B MP ####[facility] C[address]ls[address] [place], [place] [address]Gerken Arin eGFR (non-black) mL/min/{1.73_m2} Normal >=60 Th [facility] Comment on above: Performed By: #### B MP ####[facility] Ztbwgvoqxs6083 [place] [address]Gerken [place] Glucose mass conc 92 mg/dL Normal 74-106 [facility] Comment on above: Performed By: #### B MP ####[facility] Iuuuxmvvnq5026 [place] [address]Gerken Ar[place] Potassium molar conc 3.7 mmol/L Normal 3.4-5.0 [facility] Comment on above: Performed By: #### B MP ####[facility] [address] [place], [place] [address]Ger[address] Arin Sodium 140 mmol/L Normal 137-145 [facility] Comment on above: Performed By: #### B MP ####[facility] Apzhrzmmai[address]4 [place], [place] [address]Edkbij Arin Urea nitrogen 6.0 mg/dL Critically low 6.4-19.3 [facility] Comment on above: Performed By: #### B MP ####[facility] Ukzokvrego2993 [place], [place] [address]Jdozhf Arin XR CHEST 2 Von 06-09-2017 XR CHEST 2 V [address] [place] [address] Patient: NORRIS CONTRERAS Exam Date: 06/09/2017DOB: 2000 Gender:F : DEMETRIUS CANTOR Admission #: [id number] : DR RADHIKA MCDONALD M.D. Order #: [id number] HERE TO VIEW EXAM RADIOLOGY REPORT PROCEDURE: [...] [facility] M.D. on 06/09/2017 at 13:06 Normal [facility] Vital Signs Date Time Vital Sign Value Performing Clinician Faci lity 10-12-2023 14:18-0500 Body mass index (BMI) [Ratio] 22.78 kg/m2 [facility] Work Phone: [facility] 10-12-2023 14:18-050 Body weight 63.05 kg Tony [facility] Work Phone: [facility] 10-12-2023 14:18-0500 Diastolic blood pressure 70 mm[Hg] Tony [facility] Work Phone: [facility] 10-12-2023 14:18-0500 Systolic blood pressure 110 mm[Hg] Tony Floro CNM Work Phone: [facility] Healthcare Encounters Encounter Date Encounter Type Care Provider Facility Start: 03-27-2024 End: 03-27-2024 ambulatory TONY L FLORO Not Available Start: 03-22-2024 End: 03-22-2024 ambulatory TONY L [...] End: 12-04-2023 [facility] Start: 12-04-2023 End: 12-04-2023 ambulatory COLLEEN [facility] Start: 11-09-2023 End: 11-09-2023 ambulatory TONY L FLORO Not Available Start: 10-12-2023 End: 10-12-2023 Subsequent care visit Tony L Floro CNM Work Phone: [facility] Comment on above: Encounter for prenat al care of first , second trimester (Primary Dx); Screening, , for anatomic survey Start: 10-12-2023 End: 10-12-2023 ambulatory TONY L FLORO Not Available Start: 10-12-2023 Bamboo flowsheet Tony L Lso ro CNM Work Phone: [facility] Start: 10-12-2023 Bamboo flowsheet Tony Roy Los ro CNM Work Phone: [facility] Start: 09-14-2023 End: 09-14-2023 ambulatory TONY Kirill ORDONEZO Not Available Start: 08-17-2023 End: 08-17-2023 Initial care visit Tony Ordonezo CNM Work Phone: [facility] Comment on above: GA: 8w3d Start: 08-17-2023 End: 08-17-2023 ambulatory TONY L FLORO Not Available Start: 06-09-2017 End: 06-09-2017 Ambulatory DEMETRIUS CANTOR Facility: Procedures Date Procedure Procedure Detail Performing Clinician Start: 10-08-2023 Urine test visual color cmprsn meths Tony L Floro CNM Work Phone: Start: 08-17-2023 End: 08-17-2023 Culture bacterial quanttative colony count urine Tony L Floro CNM Work Phone: Start: 08-17-2023 DRUG TOX MONITORIGN 6 W/ CONF,URINE Tony L Floro CNM Work Phone: Start: 08-17-2023 URINALYSIS MICROSCOPIC Tony L Floro CNM Work Phone: Start: 08-17-2023 Antibody screen rbc each serum technique Tony L Floro CNM Work Phone: Start: 08-17-2023 Hemoglobin glycosyla drake a1c Tony L Floro CNM Work Phone: Start: 08-17-2023 TSH W/REFLEX TO FT4 Beatriz hamlet L Floro CNM Work Phone: Plan of Treatment Date Care Activity Detail Author Start: 11-09-2023 End: 11-09-2023 Patient encounter procedure 11/09/2023 9:30 AM EDT Routine [facility] [address] [place] [address] Tony Ham, ANJELICA [address] [place] [address] [facility] Start: 11-09-2023 End: 11-09-2023 Professional / ancillary services management 11/09/2023 9:30 AM EDT Ancillary Procedure [facility] [address] [phone] [facility] Start: 10-12-2023 End: 10-12-2023 Patient encounter procedure 10/12/2023 2:30 PM EST Routine [facility] [address] [place] [phone] Tony Ham CNM [address] [place] [address] Arrived [facility] Comment on above: Arrived Start: 10-12-2023 End: 10-12-2024 US for US OB 14+ weeks anatomy scan Imaging Routine Screening, , for anatomic survey Expected: 10/12/2023, Expires: 10/12/2024 [facility] Work Phone: Comment on above: Expected: 10/12/2023 , Expires: 10/12/2024 Start: 10-12-2023 End: 10-12-2023 Patient encounter procedure 10/12/2023 11:30 AM EST Routine [facility] [address] [place] [id number] Tony Ham CNM [address] [place] [address] [facility] Start: 04-30-2023 Influenza vaccination Influenza Vacc ine (#1) [facility] Immunizations Immunization Date Immunization Notes Care Provider [facility] 07-09-2015 influenza virus vacc ine, unspecified formulation Tony Ham CNM Work Phone: [facility] Payers Date Payer Category Payer Managed Care HMO (unspecified) ABHI MOE [id number] 2023-Present [address] [place] [address] O [id number] 2023 Private Health Insurance [id number] 2022 Medicaid [id number] 2000 Unknown [id number] 2.16.840.1.342692.3.579.2. 1286 2000 Unknown [id number] 2.16.840.1.131432.3.579.2. 9 1998 Unknown [id number] 2.16.840.1.888015.3.579.2. 9 1998 Unknown [id number] 2.16.840.1.703389.3.579.2. 9 1998 Unknown [id number] 2.16.840.1.511627.3.579.2. 9 1998 Unknown [id number] 2.16.840.1.586535.3.579.2. 9 1998 Unknown [id number] 2.16.840.1.982061.3.579.2. 9 1998 Unknown [id number] 2.16.840.1.886228.3.579.2. 9 1998 Unknown [id number] 2.16.840.1.209258.3.579.2. 1259 1998 Unknown [id number] 2.16.840.1.174034.3.579.2. 9 1998 Unknown [id number] 2.16.840.1.325054.3.579.2. 9 1998 Unknown [id number] 2.16.840.1.310783.3.579.2. 9 1998 Unknown [id number] 2.16.840.1.632791.3.579.2. 1259 1998 Unknown [id number] 2.16.840.1.512677.3.579.2. 1259 1959 Unknown [id number] Worker's Compensation [id number] [phone] Social History Date Type Detail Facility [...] Start: 08-11-2023 Sexual orientation Heterosexual (fin ding) [facility] History of Present illness Narrative [...] also given office phone number and [facility] number to call in case of an emergency or after hours needs. PVU and all questions answered. documented in this encounter [facility] Healthcare Evaluation note Note Date & Type Note Facility Evaluation note Diagnosis 8 weeks gestation of - Primary Amenorrhea Absence of menstruation Nausea/vomiting in Unspecified vomiting of , unspecified as to episode of care documented in this encounter [facility] Healthcare Evaluation note Note Date & Type Note Facility Evaluation note Diagnosis Encounter for care of first , second trimester- Primary Screening, , for anatomic survey Encounter for anatomic survey documented in this encounter [facility] Healthcare Summary Purpose Family History No Family History Records FoundNo Family History Records FoundNo Family History Records Found Advance Directives No Advanced Directives Records FoundNo Advanced Directives Records FoundNo Advanced Directives Records Found Reason for Referral Specialty Diagnoses / Procedures Referred By Leigh wright Referred To Contact Obstetrics and Gynecology Diagnoses Amenorrhea 8 weeks gestation of Procedures [place] OFFICE/OUTPATIENT [facility] MDM 60 MINUTES Tony Ham CNM [address] [place] [address] Tony Ham CNM [address] [place] [address] Referral ID Status Reason Start Date Expiration Date Visits Requested Visits Authorized [id number] Pending Review Specialty Services Required 3 02/15/2024 1 1 Additional Source Comments INFORMATION SOURCE (unrecogn ized section and content) DATE CREATED AUTHOR 02/22/2018 [facility] DATE CREATED AUTHOR AUTHOR'S ORGANIZ ATION 12/04/2023 [facility] DATE CREATED AUTHOR AUTHOR'S ORGANIZ ATION 04/02/2024 [facility] EPIC Reason for Visit (unrecogniz ed section and content) Reason Comments Initial Visit Care Teams (unrecognized sec tion and content) Mental Health Coordinator Relationship Specialty Start Date End Date Carmen Parker MD [address] [facility] [place] [address] PCP - General Family Medicine 01/05/23 Mental Health Coordinator Relationship Specialty Start Date End Date Carmen Parker MD [address] [facility] [place] [address] PCP - General Family Medicine 01/05/23 Mental Health Coordinator Relationship Specialty Start Date End Date Carmen Parker MD [address] [facility] [place] [address] PCP - General Family Medicine 01/05/23 FOR [...] BE BASED ON THE PRIMARY CLINICAL RECORDS. [employer] provides no warranty or guarantee of the accuracy or completeness of information in this document.
== END 2024-04-03 11:50 | disposition home or self-care (01) ==
PROVIDERS: PCP Family Medicine; Visit Provider Midwife
DX: Z39.1 Encounter for care and examination of lactating mother (principal)
CPT/HCPCS: G0463

== ENCOUNTER 2024-04-05 08:05 | Outpatient (OUT) | payer OTHER, MEDICAID, SELFPAY ==
--- OUTSIDE RECORDS SUMMARY | 2024-04-05 08:10 | XMS_ITS | CCD ---
Author Organization [facility] Care Team Providers Care Informatics Manager Name Role Phone DEMETRIUS CANTOR Unavailable Unavailable DEMETRIUS CANTOR Unavailable Unavailable RADHIKA MCDONALD Unavailable Unavailable MAVERICK KAISER V Unavailable Unavailable DEMETRIUS CANTOR Unavailable Unavailable Carmen Parker MD Primary Care Provider COLLEEN GARCIA Admitting Unavailable COLLEEN GARCIA Attending Unavailable RADHIKA MCDONALD F Primary Care Unavailable RADHIKA MCDONALD F Primary Care Unavailable FLOROBEATRIZTONY L Attending Unavailable [...] NURon 2023 BILIRUBIN HIEN Negative Normal [facility] Comment on above: Performed By: #### N UM #### [facility] ([id number]) [address] [place] [address] BLOOD/HGB HIEN Negative Normal [facility] Comment on above: Performed By: #### N UM #### [facility] ([id number]) [address] [place] [address] 55690 GLUCOSE HIEN 100 mg/dL Abnormal [facility] Comment on above: Performed By: #### N UM #### [facility] ([id number]) [address] [place] [address] 43350 KETONES HIEN Negative Normal [facility] Comment on above: Performed By: #### N UM #### [facility] ([id number]) [address] [place] [address] 91784 LEUKOCYTE ESTERASE HIEN Small Abnormal [facility] Comment on above: Performed By: #### N UM #### [facility] ([id number]) [address] [place] [address]68 NITRITE HIEN Negative Normal [facility] Comment on above: Performed By: #### N UM #### [facility] ([id number]) [address] [place] [address] 74816 PH HIEN 7.0 Normal 5.0-8.5 [facility] Comment on above: Performed By: #### N UM #### [facility] ([id number]) [address] [place] [address] PROTEIN HIEN Negative Normal [facility] Comment on above: Performed By: #### N UM #### [facility] ([id number]) [address] [place] [address] SPECIFIC GRAVITY HIEN 1.020 Normal 1.003-1.035 [facility] Comment on above: Performed By: #### N UM #### [facility] ([id number]) [address] [place] [address] UROBILINOGEN HIEN 0.2 eu/dL Normal <1.1 [facility] Comment on above: Performed By: #### N UM #### [facility] ([id number]) [address] [place] [address] US OB 14+ WEEKS ANATOMY SCAN on [...] Interpretation and review of laboratory results Abnormal [facility] Preg Test, Ur Positive [facility] Bacteria identified Cx Nom ( U)on 08-19-2023 Appearance (U) Adequate [facility] Internal identifier for Provider [id number] [facility] Specimen source Nom (Unsp spec) URINE [facility] STATUS FINAL [facility] Laboratory - Drug toxicology on 08-19-2023 1-Cpqxgfpdpf-4,5-Dimethy l-3,3-Diphenylpyrrolidin e (EDDP) Ql (U) Negative NINF - 100 ng/mL [facility] Amphetamines Ql (U) Negative NINF - 5 00 ng/mL [facility] Barbiturates Ql (U) Negative NINF - 3 00 ng/mL [facility] Benzodiazepines Ql (U) Negative NINF - 100 ng/mL [facility] Benzoylecgonine Ql (U) Negative NINF - 150 ng/mL [facility] Opiates Ql (U) Negative NINF - 100 ng/mL [facility] oxyCODONE Ql (U) Negative NINF - 100 ng/mL [facility] Phencyclidine Ql (U) Negative NINF - 25 ng/mL [facility] Tetrahydrocannabinol Screen method >20 ng/mL Ql (U) Negative NINF - 20 ng/mL [facility] Laboratory - Microbiology an d Antimicrobial susceptibilityon 08-19-2023 Bacteria identified Cx Nom (U) SEE NOTE [facility] Comment on above: No Growth Laboratory - Urinalysison Bacteria LM.HPF (Urine sed) [#/Area] NONE SEEN NONE SEEN /HPF [facility] Epithelial cells.squamous LM.HPF (Urine sed) [#/Area] 0-5 < OR = 5 /HPF [facility] Hyaline casts (Urine sed) [#/Area] NONE SEEN NONE SEEN /LPF [facility] RBC LM.HPF (Urine sed) [#/Area] NONE SEEN < OR = 2 /HPF [facility] WBC LM.HPF (Urine sed) [#/Area] NONE SEEN < OR = 5 /HPF [facility] No Panel Informationon 08-19 (ALWAYS MESSAGE) [facility] Comment on above: See Note 1 Note 1 This drug testing is for medical treatment only. Analysis was performed as non-forensic testing and these results should be used only by healthcare providers to render diagnosis or treatment, or to monitor progress of medical conditions. For assistance with interpreting these drug results, please contact a [employer] Toxicology Specialist: [phone] ( ), M-F, 8am-6pm EST. SPLIT 08/17/2023 FROM [id number] [employer] Organization Information Site ID: QPT Name: [facility] [employer] [facility] Address: [address] [place] [address], [address] [place] [id number] Director: Marv Wilcox MD [facility] CBC panel Auto (Bld)on 08-18 Erythrocyte distribution width (RBC) [Ratio] 12.4 % 11.0 - 15.0 % [facility] Hematocrit (Bld) [Volume fraction] 42.2 % 35.0 - 45.0 % [facility] Hemoglobin (Bld) [Mass/Vol] 14.4 g/dL 11.7 - 15.5 g/dL [facility] MCH (RBC) [Entitic mass] 30.4 pg 27. 0 - 33.0 pg [facility] MCHC (RBC) [Mass/Vol] 34.1 g/dL 32.0 - 36.0 g/dL [facility] MCV (RBC) [Entitic vol] 89.2 fL 80.0 - 100.0 fL [facility] Platelet mean volume (Bld) [Entitic vol] 10.2 fL 7.5 - 12.5 fL [facility] Platelets (Bld) [#/Vol] 272 10*3/uL [facility] RBC (Bld) [#/Vol] 4.73 10*6/uL [facility] WBC (Bld) [#/Vol] 8.7 10*3/uL [facility] Laboratory - Blood bankon ABO group Nom (Bld) A [facility] Blood group antibody screen Ql Detected [facility] Comment on above: Reference range No antibodies detected This assay is a screening test for the detection of red blood cell antibodies. The test is not to be used for pretransfusion screening or for the medical management of an alloimmunized . Rh Nom (Bld) Positive [facility] Comment on above: For additional information, please refer to http://[employer].Quettra/faq/WVY337 (This link is being provided for informational/ educational purposes only.) Laboratory - Chemistry and C hemistry - challengeon 08-18-2023 Free T4 [Mass/Vol] 1.1 ng/dL 0.8 - 1.8 ng/dL [facility] TSH Qn 0.29 m[IU]/L Low mIU/L [facility] Comment on above: Reference Range > or = 20 Years 0.40-4.50 Ranges First trimester 0.26-2.66 Second trimester 0.55-2.73 Third trimester 0.43-2.91 Laboratory - Hematology and Cell countson 08-18-2023 HbA1c (Bld) [Mass fraction] 4.9 % [facility] Comment on above: For the purpose of s creening for the presence of diabetes: <5.7% Consistent with the absence of diabetes 5.7-6.4% Consistent with increased risk for diabetes (prediabetes) > or =6.5% Consistent with diabetes This assay result is consistent with a decreased risk of diabetes. Currently, no consensus exists regarding use of hemoglobin A1c for diagnosis of diabetes in children. According to [place] Diabetes Association (ADA) guidelines, hemoglobin A1c <7.0% represents optimal control in non- diabetic patients. Different metrics may apply to specific patient populations. Standards of Medical Care in Diabetes(ADA). Laboratory - Microbiology an d Antimicrobial susceptibilityon 08-18-2023 HBV surface Ag IA Ql Non-Reactive NON-REACTIVE [facility] Comment on above: For additional information, please refer to http://[employer].Kid$Shirt/faq/IPS920 (This link is being provided for informational/ educational purposes only.) HCV Ab IA Ql Non-Reactive NON-REACTIVE [facility] Comment on above: HCV antibody was non-reactive. There is no laboratory evidence of HCV infection. In most cases, no further action is required. However, if recent HCV exposure is suspected, a test for HCV RNA (test code 87695) is suggested. For additional information please refer to http://education.Kid$Shirt/faq/HPU31o8 (This link is being provided for informational/ educational purposes only.) HIV 1+2 Ab+HIV1 p24 Ag IA Ql Non-Reactive NON-REACTIVE [facility] Comment on above: HIV-1 antigen and HI [...] purpose. For additional information please refer to http://[employer].Kid$Shirt/faq/WYO913 (This link is being provided for informational/ educational purposes only.) The performance of this assay has not been clinically validated in patients less than 2 years old. Reagin Ab RPR Ql (S) Non-Reactive NON-REACTIVE [facility] Rubella virus IgG Qn (S) 11.70 [IU]/mL Index [facility] Comment on above: Index Interpretation ----- <0.90 Not consistent with immunity 0.90-0.99 Equivocal > or = 1.00 Consistent with immunity The presence of rubella IgG antibody suggests immunization or past or current infection with rubella virus. N. gonorrhoeae DNA JOHN+probe Ql (Cervical mucus)on 08-18-2023 (ALWAYS MESSAGE) [facility] Comment on above: The analytical perfo rmance characteristics of this assay, when used to test SurePath(TM) specimens have been determined by [employer]. The modifications have not been cleared or approved by the FDA. This assay has been validated pursuant to the CLIA regulations and is used for clinical purposes. For additional information, please refer to https://[employer].Kid$Shirt/faq/GJA995 (This link is being provided for information/ educational purposes only.) C. trachomatis rRNA JOHN+probe Ql (Unsp spec) Not detected NOT DETECTED [facility] N. gonorrhoeae rRNA JOHN+probe Ql (Unsp spec) Not detected NOT DETECTED [facility] Performing Organization Information Site ID: QPT Name: [employer] [facility] Address: [address], [address] [place] [address] Director: Marv Wilcox MD [facility] No Panel Informationon 08-18 Interpretation and review of laboratory results Abnormal [facility] MULTIPLE COLLECTION TIMES FOR SAME TEST TYPE. [employer] Organization Information Site ID: QPT Name: [facility] [employer] [facility] Address: [address], [address] [place] [address] Director: Marv Wilcox MD [facility] US OB < 14 WEEKS EARLYon US [...] #/vol (Bld) 0.0 103/ul Normal 0.0-0.1 [facility] Comment on above: Performed By: #### C BC ####[facility] Clwmduvfig75[address] Arin Basophils/100 WBC Auto (Bld) 0.5 % Normal 0.2-2.0 [facility] Comment on above: Performed By: #### C BC ####[facility] Frduhpiyau2153 [address] [place] Eosinophils 0.1 103/ul Normal 0.0-0.7 [facility] Comment on above: Performed By: #### C BC ####[facility] [address] [place], [place] [address]en Eosinophils/100 leukocytes 1.8 % Normal 0.9-7.0 [facility] Comment on above: Performed By: #### C BC ####[facility] Uqejhelpkf2282 [address] Arin Erythrocyte distribution width Auto Ratio (RBC) 12.7 % Normal 11.0-15.0 [facility] Comment on above: Performed By: #### C BC ####[facility] [address] [place] [address] Arin Erythrocytes (RBC) 4.78 106/ul Normal 4.20-5.40 [facility] Comment on above: Performed By: #### C BC ####[facility] [address] [place] [address] Arin Hematocrit (HCT) 40.0 % Normal 36.0-48.[address] [facility] Comment on above: Performed By: #### C BC ####[facility] [address] [place] [address] Arin Hemoglobin mass conc (Bld) 13.7 g/dL Normal 12.0-16.0 [facility] Comment on above: Performed By: #### C BC ####[facility] Q[address]ii[address] [place] [address] Arin IG # 0.02 10e3/ul Normal 0.00-0.03 [facility] Comment on above: Performed By: #### C BC ####[facility] [address] [place] [address] Arin IG % 0.3 % Normal 0.0-0.5 [facility] Comment on above: Performed By: #### C BC ####[facility] [address] [place] [address] Arin Lymphocytes 1.7 103/ul Normal 1.2-3.8 [facility] Comment on above: Performed By: #### C BC ####[facility] Gsi[address]xww16[address] [place] [id number] Arin Lymphocytes/100 leukocytes 28.4 % Normal 20.5-60.0 [facility] Comment on above: Performed By: #### C BC ####[facility] Kjnulseoyj4560 [place] [id number] Arin MANUAL DIFF REQ NO Normal [facility] Comment on above: Performed By: #### C BC ####[facility] Vvfymbocel7739 [place] [id number] Arin MCH 28.7 pg Normal 26.7-34.0 [facility] Comment on above: Performed By: #### C BC ####[facility] [address] [place] [address] Arin MCHC mass conc (RBC) 34.3 g/dL Normal 29.9-35.2 [facility] Comment on above: Performed By: #### C BC ####[facility] Z[address] [place] [address] Arin MCV 83.7 fL Normal 81.0-99.0 [facility] Comment on above: Performed By: #### C BC ####[facility] [address] [place], [place] [address]Gerken Arin Monocytes 0.4 103/ul Normal 0.3-0.8 [facility] Comment on above: Performed By: #### C BC ####[facility] Avxzacseoi4071 [place] [id number] Arin Monocytes/100 leukocytes 6.6 % Normal 1.7-12.0 [facility] Comment on above: Performed By: #### C BC ####[facility] [address] [place], [place] [address]Gerken Arin Neutrophils 3.8 103/ul Normal 1.4-6.5 [facility] Comment on above: Performed By: #### C BC ####[facility] N[address] [place], [place] [address]Gerken Arin Neutrophils/100 WBC Auto (Bld) 62.4 % Normal 43.0-75.0 [facility] Comment on above: Performed By: #### C BC ####[facility] Yhkgxfddfg4[address] [place] [id number] Hinkle Platelet mean volume (PMV) 9.6 fL Normal 9.5-13.5 [facility] Comment on above: Performed By: #### C BC ####[facility] Palpnhisjb8573 [address] Arin Platelets 198 103/ul Normal 150-450 [facility] Comment on above: Performed By: #### C BC ####[facility] [address] [place], [place] [address]ghada Hinkle WBC (Leukocytes) 6.0 103/ul Normal 4.0-11.0 [facility] Comment on above: Performed By: #### C BC ####[facility] [address] [place] [address] Arin D-DIMERon 06-09-2017 D-DIMER COMMENTS SEE BELOW Normal [facility] Comment on above: Result Comment: Incr eases [...] generalizd hospitalization. Performed By: #### D DIM ####[facility] Vpstjbpkwa3768 [address] Arin Fibrin D-dimer FEU 0.23 ug/mL Normal 0.19-0.50 [facility] Comment on above: Performed By: #### D DIM ####[facility] Vqjprgqslx4916 [address] Ar[place] PROF CHEM 8 (BAS METB)on Anion gap 14.7 mmol/L Normal [facility] Comment on above: Performed By: #### B MP ####[facility] T[address]qpjbwlc9220 [place] [id number] Arin BUN/Creatinine Ratio 10.2 mg/mg Normal [facility] Comment on above: Performed By: #### B MP ####[facility] Lrht[address]ib[address] [place], [place] [address]Mwqkhj Arin Calcium 9.3 mg/dL Normal 8.4-10.2 [facility] Comment on above: Performed By: #### B MP ####[facility] Dxxdbnkexr8287 [place] [id number] Arin Chloride 108 mmol/L Critically high 98-107 [facility] Comment on above: Performed By: #### B MP ####[facility] Myc[address] [place], [place] [address]Ger[address] Arin CO2 21.0 mmol/L Critically low 22.0-30.0 [facility] Comment on above: Performed By: #### B MP ####[facility] [address] [place], [place] [address]Gerken Arin Creatinine 0.63 mg/dL Normal 0.52-1.04 [facility] Comment on above: Performed By: #### B MP ####[facility] [address] [place], [place] [address]Gerken Arin eGFR (non-black) mL/min/{1.73_m2} Normal >=60 [facility] Comment on above: Performed By: #### B MP ####[facility] Etrdlkaodc2644 [place] [id number] Arin Glucose mass conc 92 mg/dL Normal 74-106 [facility] Comment on above: Performed By: #### B MP ####[facility] Ijbuebfhoo7793 [place] [id number] Arin Potassium molar conc 3.7 mmol/L Normal 3.4-5.0 [facility] Comment on above: Performed By: #### B MP ####[facility] [address] [place], [place] [address]Ger[place] Arin Sodium 140 mmol/L Normal 137-145 [facility] Comment on above: Performed By: #### B MP ####[facility] Cwaj[address]jh[address]cz4[address] [place], [place] [address]Fnllue Arin Urea nitrogen 6.0 mg/dL Critically low 6.4-19.3 [facility] Comment on above: Performed By: #### B MP ####[facility] Wh[address]zn[address]or[address] [place], [place] [address]Cupofx Arin XR CHEST 2 Von 06-09-2017 XR CHEST 2 V [address] [place] [address] Patient: NORRIS CONTRERAS Exam Date: 06/09/2017DOB: 2000 Gender:F : DEMETRIUS CANTOR Admission #: [id number] : DR RADHIKA MCDONALD M.D. Order #: [id number] HERE TO VIEW EXAM RADIOLOGY REPORT PROCEDURE: [...] [facility] M.D. on 06/09/2017 at 13:06 Normal [facility] Vital Signs Date Time Vital Sign Value Performing Clinician Faci lity 10-12-2023 14:18-0500 Body mass index (BMI) [Ratio] 22.78 kg/m2 [facility] Work Phone: [facility] 10-12-2023 14:18-050 Body weight 63.05 kg [facility] Work Phone: [facility] 10-12-2023 14:18-0500 Diastolic blood pressure 70 mm[Hg] [facility] Work Phone: [facility] 10-12-2023 14:18-0500 Systolic blood pressure 110 mm[Hg] Tony Floro CNM Work Phone: [facility] Healthcare Encounters Encounter Date Encounter Type [...] End: 12-04-2023 [facility] Start: 12-04-2023 End: 12-04-2023 ambulatory [facility] Start: 11-09-2023 End: 11-09-2023 ambulatory TONY L FLORO Not Available Start: 10-12-2023 End: 10-12-2023 Subsequent care visit Tony L Floro CNM Work Phone: [facility] FNR OB Comment on above: Encounter [...] AM EDT Routine [facility] [address] [place] [address] Tony Ham, ANJELICA [address] [place] [address] [facility] Start: 11-09-2023 End: 11-09-2023 Professional / ancillary services management 11/09/2023 9:30 AM EDT Ancillary Procedure [facility] [address] [id number] [facility] Start: 10-12-2023 End: 10-12-2023 Patient encounter procedure 10/12/2023 2:30 PM EST Routine [facility] [address] [place] [id number] Tony Ham CNM [address] [place] [address] Arrived [facility] Comment on above: Arrived Start: 10-12-2023 End: 10-12-2024 US for US OB 14+ weeks anatomy scan Imaging Routine Screening, , for anatomic survey Expected: 10/12/2023, Expires: 10/12/2024 [facility] Work Phone: Comment on above: Expected: 10/12/2023 , Expires: 10/12/2024 Start: 10-12-2023 End: 10-12-2023 Patient encounter procedure 10/12/2023 11:30 AM EST Routine [facility] [address] [place] [id number] Tony Ham CNM [address] [place] [address] [facility] Start: 04-30-2023 Influenza vaccination Influenza Vacc ine (#1) [facility] Immunizations Immunization Date Immunization Notes Care Provider Fa [facility] 07-09-2015 influenza virus vacc ine, unspecified formulation Tony Ham CNM Work Phone: [facility] Payers Date Payer Category Payer Managed Care HMO (unspecified) ABHI MOE [id number] 2023-Present [address] [place] [address] O [id number] 2023 Private Health Insurance [id number] 2022 Medicaid [id number] 2000 Unknown [id number] 2.16.840.1.946688.3.579.2. 1286 1998 Unknown [id number] 2.16.840.1.126022.3.579.2. 9 1998 Unknown [id number] 2.16.840.1.977939.3.579.2. 9 1998 Unknown [id number] 2.16.840.1.003234.3.579.2. 9 1998 Unknown [id number] 2.16.840.1.168225.3.579.2. 9 1998 Unknown [id number] 2.16.840.1.343327.3.579.2. 9 1998 Unknown [id number] 2.16.840.1.685072.3.579.2. 9 1998 Unknown [id number] 2.16.840.1.823223.3.579.2. 9 1998 Unknown [id number] 2.16.840.1.309627.3.579.2. 1259 1998 Unknown [id number] 2.16.840.1.932816.3.579.2. 9 1998 Unknown [id number] 2.16.840.1.668643.3.579.2. 9 1998 Unknown [id number] 2.16.840.1.005140.3.579.2. 9 1998 Unknown [id number] 2.16.840.1.296210.3.579.2. 1259 1998 Unknown [id number] 2.16.840.1.171133.3.579.2. 1259 1959 Unknown [id number] Worker's Compensation [id number] [phone] Social History Date Type Detail Facility [...] also given office phone number and [facility] number to call in case of an emergency or after hours needs. PVU and all questions answered. documented in this encounter [facility] Healthcare Evaluation note Note Date & Type Note Facility Evaluation note Diagnosis 8 weeks gestation of - Primary Amenorrhea Absence of menstruation Nausea/vomiting in Unspecified vomiting of , unspecified as to episode of care documented in this encounter [facility] Healthcare Evaluation note Note Date & Type Note Facility Evaluation note Diagnosis Encounter for care of first , second trimester- Primary Screening, , for anatomic survey Encounter for anatomic survey documented in this encounter [facility] Healthcare Summary Purpose Family History No Family History Records FoundNo Family History Records FoundNo Family History Records Found Advance Directives No Advanced Directives Records FoundNo Advanced Directives Records FoundNo Advanced Directives Records Found Reason for Referral Specialty Diagnoses / Procedures Referred By Leigh wright Referred To Contact Obstetrics and Gynecology Diagnoses Amenorrhea 8 weeks gestation of Procedures MD OFFICE/OUTPATIENT [facility] MDM 60 MINUTES Tony Ham CNM [address] [place] [address] Tony Ham CNM [address] [place] [address] Referral ID Status Reason Start Date Expiration Date Visits Requested Visits Authorized [id number] Pending Review Specialty Services Required 3 02/15/2024 1 1 Additional Source Comments INFORMATION SOURCE (unrecogn ized section and content) DATE CREATED AUTHOR 02/22/2018 [facility] DATE CREATED AUTHOR AUTHOR'S ORGANIZ ATION 12/04/2023 [facility] DATE CREATED AUTHOR AUTHOR'S ORGANIZ ATION 04/02/2024 [facility] EPIC Reason for Visit (unrecogniz ed section and content) Reason Comments Initial Visit Care Teams (unrecognized sec tion and content) Informatics Manager Relationship Specialty Start Date End Date Carmen Parker MD [address] [facility] ([place], [place]) [place] [address] PCP - General Family Medicine 01/05/23 Informatics Manager Relationship Specialty Start Date End Date Carmen Parker MD [address] [facility] ([place], [place]) [place] [address] PCP - General Family Medicine 01/05/23 Informatics Manager Relationship Specialty Start Date End Date Carmen Parker MD [address] [facility] ([place], [place]) [place] [address] PCP - General Family Medicine 01/05/23 FOR [...] BE BASED ON THE PRIMARY CLINICAL RECORDS. [employer] provides no warranty or guarantee of the accuracy or completeness of information in this document.
--- NOTE | 2024-04-05 10:19 | PC.NURSE ---
Andre Curran and 13 day old Nina arrive for weight check and support. Parents state he is like a different baby We wake him every 2 hours and he is ready to eat Parents note increased number of wet and stool diapers with each feed. to scales and weight up to 3480 gms, (^60 gms since 04/03/2024) Parents praised for working feeding plan, but aware infant remains 9.4% below weight. Aware of need to continue feeding plan to have return to weight jonel. Baby to breast in cross cradle nurses well for 15 minutes and then to laid back position for 2nd breast nursed 22 minutes actively. Post feed weight ^60 gms to 3540 gms. Mom pleased with progress made in ability to latch baby. Andre very supportive and kind to Bina. Plan is to continue feeds every 2 hours (6am - 10pm) then 3 hour stretch at night X2. Keep scheduled visit with Susie REICH NP 04/10/2024 as well as return for support 04/12/2024 per mom's request. Family leaves ambulatory without questions and confident in ability to continue .
== END 2024-04-05 10:05 | disposition home or self-care (01) ==
LOC: FBCO 08:06
PROVIDERS: PCP Family Medicine; Visit Provider Midwife
DX: Z39.1 Encounter for care and examination of lactating mother (principal)
CPT/HCPCS: G0463

== ENCOUNTER 2024-04-10 19:43 | Emergency (ER) | payer OTHER, MEDICAID, SELFPAY ==
[2024-04-10 20:38] VITALS: BP 139/88; PULSE 78; TEMP 36.6; O2SAT 100; BMI 28.3
--- NOTE | 2024-04-10 21:11 | ED.GENADUL1 ---
HPI HPI - General Adult General Chief complaint: Recheck/Abnormal Lab/Rx Stated complaint: post delivery comp Time Seen by Provider: 04/10/24 19:58 Source: patient Mode of arrival: walk-in Limitations: no limitations History of Present Illness HPI narrative: This 23-year-old female who is 2 weeks status post vaginal delivery which required an episiotomy and suture repair presents for evaluation of vaginal bleeding. The patient is extremely distraught thinking that her sutures have come out. After the initial episiotomy repair the sutures did come out requiring her to have sutures replaced. She has been having some bright red blood and dark red blood from her vagina and is afraid that she is having to have sutures placed again. She is not having any abdominal pain. She has not had any fever. She does have mild lochia which is ongoing. Related Data Home Medications ?Medication ?Instructions ?Recorded ?Confirmed vit no.105-iron 30 pkg PO DAILY 03/23/24 mg-folic acid 1.4 mg-dha 300 mg oral pack (Prena1 True) Allergies Allergy/AdvReac Type Severity Reaction Status Date / Time No Known Drug Allergies Allergy Verified 04/10/24 20:37 Opioid HPI Opioid Management Most Recent Opioid Data: Last Pain Scale 5 03/25/24 07:52 Ur Phencyclidine Scrn Negative (NEGATIVE) 03/23/24 05:50 Review of Systems ROS Status of ROS 10 or more systems reviewed and unremarkable except as noted in history and below [facility] Medical History (Updated 04/10/24 @ 21:10 by Philomena Mcghee MD) Term ?Z34.90 - Encounter for supervision of normal , unspecified, unspecified trimester (ICD-10) Vacuum-assisted vaginal delivery ?Z37.9 - Outcome of delivery, unspecified (ICD-10) Hx of scoliosis ?Z87.39 - Personal history of other diseases of the musculoskeletal system and connective tissue (ICD-10) Social History Highest level of school completed/degree received: high school graduate Exam Narrative Exam Narrative: Vital signs and Nursing Notes reviewed: Patient is afebrile with normal pulse, normal blood pressure, she is not hypoxic with pulse ox of 100% on room air General: Awake, alert, oriented, anxious and tearful, no respiratory distress Chest: Lungs are clear to auscultation with good air entry, there is no wheezing rhonchi or rales appreciated no accessory muscle use, patient is speaking in complete sentences-no chest wall tenderness to palpation CVS: Regular rate and rhythm S1-S2, no murmurs rubs or gallops, pulses are brisk and equal bilaterally ABD: Soft, nondistended, nontender, globular, non-tender uterus : Episiotomy sutures are intact and the labia minora appear normal. There is a small blood clot at the vaginal introitus. This was gently removed and there is very minimal blood coming from the vagina at this time Extremities: Moving all extremities, no lower extremity tenderness or swelling noted, negative Homans' sign, pulses are brisk and equal bilaterally Skin: Normal in appearance without rash,pallor, petechiae or purpura Neuro: No focal deficits Constitutional Vital Signs, click to edit/add: Last Vital Signs Temp 97.8 F 04/10/24 20:38 Pulse 92 H 04/10/24 21:17 Resp 16 04/10/24 21:17 BP 128/76 04/10/24 21:17 Pulse Ox 100 04/10/24 21:17 O2 Del Method Room Air 04/10/24 21:17 Course Vital Signs Vital signs: Vital Signs Temperature 97.8 F 04/10/24 20:38 Pulse Rate 78 04/10/24 20:38 Respiratory Rate 18 04/10/24 20:38 Blood Pressure 139/88 04/10/24 20:38 Pulse Oximetry 100 04/10/24 20:38 Oxygen Delivery Method Room Air 04/10/24 20:38 Temperature 97.8 F 04/10/24 20:38 Pulse Rate 92 H 04/10/24 21:17 Respiratory Rate 16 04/10/24 21:17 Blood Pressure 128/76 04/10/24 21:17 Pulse Oximetry 100 04/10/24 21:17 Oxygen Delivery Method Room Air 04/10/24 21:17 Medical Decision Making MDM Narrative Medical decision making narrative: This 23-year-old female who is 2 weeks status post vaginal delivery with episiotomy. She had to have her sutures replaced once because the sutures tore out and she is now having some vaginal bleeding that she is concerned is related to her sutures coming out again. Her sutures are intact. The episiotomy site appears to be well-healing. It was a small blood clot at the vaginal introitus. I explained to the patient that the sutures look fine. I showed them to her boyfriend/. I encouraged him to monitor how they look. At this time they look normal. I suspect her bleeding is related to lochia and this was discussed with her. She states that she is not doing much PeriCare besides Dermoplast but is running out of the Dermoplast. I encouraged her to do sitz bath's and gentle wiping after using the bathroom and I will refill her prescription for Dermoplast. 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 Discharge Plan Discharge Stand Alone Forms: Portal Instructions Chief Complaint: Recheck/Abnormal Lab/Rx Clinical Impression: Encounter for wound re-check Patient Disposition: Home, Self-Care Time of Disposition Decision: 21:07 Condition: Good Prescriptions / Home Meds: No Action Prena1 True 30 mg iron- 1.4 mg-300 mg combo pack PO DAILY Print Language: [place] Citizen Instructions: Episiotomy (DC), Sitz Bath (DC) Additional Instructions: Continue pericare as previously instructed. 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 Referrals: RADHIKA MCDONALD [Primary Care Provider] - 1 week Discharge Date/Time: 04/10/24 21:17
--- OUTSIDE RECORDS SUMMARY | 2024-04-10 21:15 | XMS_ITS | CCD ---
Author Organization [facility] Care Team Providers Care On Air Announcer Name Role Phone DEMETRIUS CANTOR Unavailable Unavailable DEMETRIUS CANTOR Unavailable Unavailable RADHIKA MCDONALD Unavailable Unavailable MAVERICK KAISER V Unavailable Unavailable DEMETRIUS CANTOR Unavailable Unavailable Carmne Parker MD Primary Care Provider COLLEEN GARCIA Admitting Unavailable COLLEEN GARCIA Attending Unavailable RADHIKA MCDONALD F Primary Care Unavailable RADHIKA MCDONALD Primary Care Unavailable FLORO, TONY L Attending [...] NURon 2023 BILIRUBIN HIEN Negative Normal NEG [facility] Comment on above: Performed By: #### N UM #### [facility] ([id number]) [address] [place] [address] 86256 BLOOD/HGB HIEN Negative Normal NEG [facility] Comment on above: Performed By: #### N UM #### [facility] ([id number]) [address] [place] [address] 01420 GLUCOSE HIEN 100 mg/dL Abnormal NEG [facility] Comment on above: Performed By: #### N UM #### [facility] ([id number]) [address] [place] [address] 31656 KETONES HIEN Negative Normal NEG [facility] Comment on above: Performed By: #### N UM #### [facility] ([id number]) [address] [place] [address] 50364 LEUKOCYTE ESTERASE HIEN Small Abnormal NEG [facility] Comment on above: Performed By: #### N UM #### [facility] ([id number]) [address] [place] [address] 46628 NITRITE HIEN Negative Normal NEG [facility] Comment on above: Performed By: #### N UM #### [facility] ([id number]) [address] [place] [address] 28867 PH HIEN 7.0 Normal 5.0-8.5 [facility] Comment on above: Performed By: #### N UM #### [facility] ([id number]) [address] [place] [address] PROTEIN HIEN Negative Normal NEG [facility] Comment on above: Performed By: #### N UM #### [facility] ([id number]) [address] [place] [address] SPECIFIC GRAVITY HIEN 1.020 Normal 1.003-1.035 [facility] Comment on above: Performed By: #### N UM #### [facility] ([id number]) [address] [place] [address] UROBILINOGEN HIEN 0.2 eu/dL Normal <1.1 [facility] Comment on above: Performed By: #### N UM #### [facility] ([id number]) [address] [place] [address] 13791 US OB 14+ WEEKS ANATOMY SCAN on [...] Interpretation and review of laboratory results Abnormal [facility] Preg Test, Ur Positive [facility] Bacteria identified Cx Nom ( U)on 08-19-2023 Appearance (U) Adequate [facility] Internal identifier for Provider [id number] [facility] Specimen source Nom (Unsp spec) URINE [facility] STATUS FINAL [facility] Laboratory - Drug toxicology on 08-19-2023 9-Nerdwqpoqp-3,5-Dimethy l-3,3-Diphenylpyrrolidin e (EDDP) Ql (U) Negative NINF - 100 ng/mL [facility] Amphetamines Ql (U) Negative NINF - 5 00 ng/mL [facility] Barbiturates Ql (U) Negative NINF - 3 00 ng/mL [facility] Benzodiazepines Ql (U) Negative NINF - 100 ng/mL [facility] Benzoylecgonine Ql (U) Negative NINF - 150 ng/mL [facility] Opiates Ql (U) Negative NINF - 100 ng/mL [facility] oxyCODONE Ql (U) Negative NINF - 100 ng/mL [facility] Phencyclidine Ql (U) Negative NINF - 25 ng/mL [facility] Tetrahydrocannabinol Screen method >20 ng/mL Ql (U) Negative NINF - 20 ng/mL [facility] Laboratory - Microbiology an d Antimicrobial susceptibilityon 08-19-2023 Bacteria identified Cx Nom (U) SEE NOTE [facility] Comment on above: No Growth Laboratory - Urinalysison Bacteria LM.HPF (Urine sed) [#/Area] NONE SEEN NONE SEEN /HPF [facility] Epithelial cells.squamous LM.HPF (Urine sed) [#/Area] 0-5 < OR = 5 /HPF [facility] Hyaline casts (Urine sed) [#/Area] NONE SEEN NONE SEEN /LPF [facility] RBC LM.HPF (Urine sed) [#/Area] NONE SEEN < OR = 2 /HPF [facility] WBC LM.HPF (Urine sed) [#/Area] NONE SEEN < OR = 5 /HPF [facility] No Panel Informationon 08-19 (ALWAYS MESSAGE) [facility] Comment on above: See Note 1 Note 1 This drug testing is for medical treatment only. Analysis was performed as non-forensic testing and these results should be used only by healthcare providers to render diagnosis or treatment, or to monitor progress of medical conditions. For assistance with interpreting these drug results, please contact a [facility] Toxic[facility] Specialist: [phone] ( ), M-F, 8am-6pm EST. SPLIT 08/17/2023 FROM [id number] [employer] Organization Information Site ID: QPT Name: [facility] Address: [address] [place] [address], [address] [place] [id number] Director: Marv Wilcox MD [facility] CBC panel Auto (Bld)on 08-18 Erythrocyte distribution width (RBC) [Ratio] 12.4 % 11.0 - 15.0 % [facility] Hematocrit (Bld) [Volume fraction] 42.2 % 35.0 - 45.0 % [facility] Hemoglobin (Bld) [Mass/Vol] 14.4 g/dL 11.7 - 15.5 g/dL [facility] MCH (RBC) [Entitic mass] 30.4 pg 27. 0 - 33.0 pg [facility] MCHC (RBC) [Mass/Vol] 34.1 g/dL 32.0 - 36.0 g/dL [facility] MCV (RBC) [Entitic vol] 89.2 fL 80.0 - 100.0 fL [facility] Platelet mean volume (Bld) [Entitic vol] 10.2 fL 7.5 - 12.5 fL [facility] Platelets (Bld) [#/Vol] 272 10*3/uL [facility] RBC (Bld) [#/Vol] 4.73 10*6/uL [facility] WBC (Bld) [#/Vol] 8.7 10*3/uL [facility] Laboratory - Blood bankon ABO group Nom (Bld) A [facility] Blood group antibody screen Ql Detected [facility] Comment on above: Reference range No antibodies detected This assay is a screening test for the detection of red blood cell antibodies. The test is not to be used for pretransfusion screening or for the medical management of an alloimmunized . Rh Nom (Bld) Positive [facility] Comment on above: For additional information, please refer to http://vogogo.Jmdedu.com/faq/NWM564 (This link is being provided for informational/ educational purposes only.) Laboratory - Chemistry and C hemistry - challengeon 08-18-2023 Free T4 [Mass/Vol] 1.1 ng/dL 0.8 - 1.8 ng/dL [facility] TSH Qn 0.29 m[IU]/L Low mIU/L [facility] Comment on above: Reference Range > or = 20 Years 0.40-4.50 Ranges First trimester 0.26-2.66 Second trimester 0.55-2.73 Third trimester 0.43-2.91 Laboratory - Hematology and Cell countson 08-18-2023 HbA1c (Bld) [Mass fraction] 4.9 % [facility] Comment on above: For the purpose of s creening for the presence of diabetes: <5.7% Consistent with the absence of diabetes 5.7-6.4% Consistent with increased risk for diabetes (prediabetes) > or =6.5% Consistent with diabetes This assay result is consistent with a decreased risk of diabetes. Currently, no consensus exists regarding use of hemoglobin A1c for diagnosis of diabetes in children. According to [place] Diabetes Association (ADA) guidelines, hemoglobin A1c <7.0% represents optimal control in non- diabetic patients. Different metrics may apply to specific patient populations. Standards of Medical Care in Diabetes(ADA). Laboratory - Microbiology an d Antimicrobial susceptibilityon 08-18-2023 HBV surface Ag IA Ql Non-Reactive NON-REACTIVE [facility] Comment on above: For additional information, please refer to http://vogogo.[employer]/faq/ASE219 (This link is being provided for informational/ educational purposes only.) HCV Ab IA Ql Non-Reactive NON-REACTIVE [facility] Comment on above: HCV antibody was non-reactive. There is no laboratory evidence of HCV infection. In most cases, no further action is required. However, if recent HCV exposure is suspected, a test for HCV RNA (test code 66990) is suggested. For additional information please refer to http://vogogo.[employer]/faq/IAR38v6 (This link is being provided for informational/ educational purposes only.) HIV 1+2 Ab+HIV1 p24 Ag IA Ql Non-Reactive NON-REACTIVE [facility] Comment on above: HIV-1 antigen and HI [...] purpose. For additional information please refer to http://vogogo.[employer]/faq/YHP858 (This link is being provided for informational/ educational purposes only.) The performance of this assay has not been clinically validated in patients less than 2 years old. Reagin Ab RPR Ql (S) Non-Reactive NON-REACTIVE [facility] Rubella virus IgG Qn (S) 11.70 [IU]/mL Index [facility] Comment on above: Index Interpretation ----- <0.90 Not consistent with immunity 0.90-0.99 Equivocal > or = 1.00 Consistent with immunity The presence of rubella IgG antibody suggests immunization or past or current infection with rubella virus. N. gonorrhoeae DNA JOHN+probe Ql (Cervical mucus)on 08-18-2023 (ALWAYS MESSAGE) [facility] Comment on above: The analytical perfo rmance characteristics of this assay, when used to test SurePath(TM) specimens have been determined by [facility]. The modifications have not been cleared or approved by the FDA. This assay has been validated pursuant to the CLIA regulations and is used for clinical purposes. For additional information, please refer to https://vogogo.[employer]/faq/XDJ712 (This link is being provided for information/ educational purposes only.) C. trachomatis rRNA JOHN+probe Ql (Unsp spec) Not detected NOT DETECTED [facility] N. gonorrhoeae rRNA JOHN+probe Ql (Unsp spec) Not detected NOT DETECTED [facility] Organization Information Site ID: QPT Name: [facility] Address: [address] [place] [address] Director: Marv Wilcox MD [facility] No Panel Informationon 08-18 Interpretation and review of laboratory results Abnormal [facility] MULTIPLE COLLECTION TIMES FOR SAME TEST TYPE. [employer] Organization Information Site ID: QPT Name: [facility] Address: [address] [place] [address] Director: Marv Wilcox MD [facility] US [...] (Bld) 0.0 103/ul Normal 0.0-0.1 [facility] Comment on above: Performed By: #### C BC ####[facility] [address] [place], [place] [address]Ycstzd Arin Basophils/100 WBC Auto (Bld) 0.5 % Normal 0.2-2.0 [facility] Comment on above: Performed By: #### C BC ####[facility] [address] [place] [address] Arin Eosinophils 0.1 103/ul Normal 0.0-0.7 [facility] Comment on above: Performed By: #### C BC ####[facility] [address] [place] [address] Arin Eosinophils/100 leukocytes 1.8 % Normal 0.9-7.0 [facility] Comment on above: Performed By: #### C BC ####[facility] [address] [place] [address] Arin Erythrocyte distribution width Auto Ratio (RBC) 12.7 % Normal 11.0-15.0 [facility] Comment on above: Performed By: #### C BC ####[facility] [address] [place] [address] Arin Erythrocytes (RBC) 4.78 106/ul Normal 4.20-5.40 [facility] Comment on above: Performed By: #### C BC ####[facility] [address] [place] [address] Arin Hematocrit (HCT) 40.0 % Normal 36.0-48.0 [facility] Comment on above: Performed By: #### C BC ####[facility] [address] [place] [address] Arin Hemoglobin mass conc (Bld) 13.7 g/dL Normal 12.0-16.0 [facility] Comment on above: Performed By: #### C BC ####[facility] [address] [place] [address] Arin IG # 0.02 10e3/ul Normal 0.00-0.03 [facility] Comment on above: Performed By: #### C BC ####[facility] [address] [place] [address] Arin IG % 0.3 % Normal 0.0-0.5 [facility] Comment on above: Performed By: #### C BC ####[facility] [address] [place], [place] [address]Gerken Arin Lymphocytes 1.7 103/ul Normal 1.2-3.8 [facility] Comment on above: Performed By: #### C BC ####[facility] [address] [place] [address]Gerken Arin Lymphocytes/100 leukocytes 28.4 % Normal 20.5-60.0 [facility] Comment on above: Performed By: #### C BC ####[facility] [address] [place] [address]Gerken Arin MANUAL DIFF REQ NO Normal [facility] Comment on above: Performed By: #### C BC ####[facility] [address] [place], [place] [address]Gerken Arin MCH 28.7 pg Normal 26.7-34.0 [facility] Comment on above: Performed By: #### C BC ####[facility] [address] [place] [address] Arin MCHC mass conc (RBC) 34.3 g/dL Normal 29.9-35.2 [facility] Comment on above: Performed By: #### C BC ####[facility] [address] [place], [place] [address]Gerken Arin MCV 83.7 fL Normal 81.0-99.0 [facility] Comment on above: Performed By: #### C BC ####[facility] [address] [place], [place] [address]Gerken Arin Monocytes 0.4 103/ul Normal 0.3-0.8 [facility] Comment on above: Performed By: #### C BC ####[facility] [address] [place] [address]Gerken Arin Monocytes/100 leukocytes 6.6 % Normal 1.7-12.0 [facility] Comment on above: Performed By: #### C BC ####[facility] [address] [place], [place] [address]Gerken Arin Neutrophils 3.8 103/ul Normal 1.4-6.5 [facility] Comment on above: Performed By: #### C BC ####[facility] [address] [place], [place] [address]ghada Hinkle Neutrophils/100 WBC Auto (Bld) 62.4 % Normal 43.0-75.0 [facility] Comment on above: Performed By: #### C BC ####[facility] [address] [place] [address]Shamar Hinkle Platelet mean volume (PMV) 9.6 fL Normal 9.5-13.5 [facility] Comment on above: Performed By: #### C BC ####[facility] [address] [place], [place] [address]Shamar Hinkle Platelets 198 103/ul Normal 150-450 [facility] Comment on above: Performed By: #### C BC ####[facility] [address] [place], [place] [address]Shamar Hinkle WBC (Leukocytes) 6.0 103/ul Normal 4.0-11.0 [facility] Comment on above: Performed By: #### C BC ####[facility] [address] [place] [address] Arin D-DIMERon 06-09-2017 D-DIMER COMMENTS SEE BELOW Normal [facility] Comment on above: Result Comment: Incr [...] hospitalization. Performed By: #### D DIM ####[facility] [address] [place], [place] [address]Gerken Arin Fibrin D-dimer FEU 0.23 ug/mL Normal 0.19-0.50 [facility] Comment on above: Performed By: #### D DIM ####[facility] [address] [place], [place] [address]Gerken Arin PROF CHEM 8 (BAS METB)on Anion gap 14.7 mmol/L Normal [facility] Comment on above: Performed By: #### B MP ####[facility] [address] [place] [address]Gerken Arin BUN/Creatinine Ratio 10.2 mg/mg Normal [facility] Comment on above: Performed By: #### B MP ####[facility] [address] [place] [address]Gerken Arin Calcium 9.3 mg/dL Normal 8.4-10.2 [facility] Comment on above: Performed By: #### B MP ####[facility] [address] [place] [address]Gerken Arin Chloride 108 mmol/L Critically high 98-107 [facility] Comment on above: Performed By: #### B MP ####[facility] [address] [place] [address] Arin CO2 21.0 mmol/L Critically low 22.0-30.0 [facility] Comment on above: Performed By: #### B MP ####[facility] [address] [place], [place] [address]Gerken Arin Creatinine 0.63 mg/dL Normal 0.52-1.04 [facility] Comment on above: Performed By: #### B MP ####[facility] [address] [place], [place] [address]Gerken Arin eGFR (non-black) mL/min/{1.73_m2} Normal >=60 [facility] Comment on above: Performed By: #### B MP ####[facility] [address] [place] [address]Gerken Arin Glucose mass conc 92 mg/dL Normal 74-106 [facility] Comment on above: Performed By: #### B MP ####[facility] [address] [place], [place] [address]Gerken Arin Potassium molar conc 3.7 mmol/L Normal 3.4-5.0 [facility] Comment on above: Performed By: #### B MP ####[facility] [address] [place], [place] [address]Dmptme Arin Sodium 140 mmol/L Normal 137-145 [facility] Comment on above: Performed By: #### B MP ####[facility] [address] [place], [place] [address]Fersuc Arin Urea nitrogen 6.0 mg/dL Critically low 6.4-19.3 [facility] Comment on above: Performed By: #### B MP ####[facility] [address] [place], [place] [address]Kqjksd Arin XR CHEST 2 Von 06-09-2017 XR CHEST 2 [address] [place] [address] Patient: NORRIS CONTRERAS Exam Date: 06/09/2017DOB: 2000 Gender:F : DEMETRIUS CANTOR Admission #: [id number] : DR RADHIKA MCDONALD M.D. Order #: [id number] HERE TO VIEW EXAM RADIOLOGY REPORT PROCEDURE: [...] [facility] M.D. on 06/09/2017 at 13:06 Normal [facility] Vital Signs Date Time Vital Sign Value Performing Clinician Faci lity 10-12-2023 14:18-050 Body mass index (BMI) [Ratio] 22.78 kg/m2 [employer] [facility] Work Phone: [facility] 10-12-2023 14:18050 Body weight 63.05 kg [employer] [facility] Work Phone: [facility] 10-12-2023 14:18-050 Diastolic blood pressure 70 mm[Hg] Tony Floro CNM Work Phone: [facility] 10-12-2023 14:18-0500 Systolic blood pressure 110 mm[Hg] Tony Floro CNM Work Phone: [facility] Encounters Encounter Date Encounter Type Care Provider Facility Start: 04-06-2024 ambulatory TONY L FLORO Not Lore ilable Start: 03-27-2024 End: 03-27-2024 ambulatory TONY L [...] End: 12-04-2023 Emergency department patient visit RADHIKA MCDONALD [facility] Start: 12-04-2023 End: 12-04-2023 ambulatory [facility] Start: 11-09-2023 End: 11-09-2023 ambulatory TONY L FLORO Not Available Start: 10-12-2023 End: 10-12-2023 Subsequent care visit Tony Kirill Floro CN Work Phone: [facility] Comment on above: Encounter for prenat al care of first , second trimester (Primary Dx); Screening, , for anatomic survey Start: 10-12-2023 End: 10-12-2023 ambulatory TONY Kirill ORDONEZO Not Available Start: 10-12-2023 Bamboo flowsheet Tony [...] 8w3d Start: 08-17-2023 End: 08-17-2023 ambulatory TONY Kirill ORDONEZO Not Available Start: 06-09-2017 End: 06-09-2017 Ambulatory DEMETRIUS CANTOR Facility: Procedures Date Procedure Procedure Detail Performing Clinician Start: 10-08-2023 Urine test visual color cmprsn meths Tony Kirill Floro CNM Work Phone: Start: 08-17-2023 End: 08-17-2023 Culture bacterial quanttative colony count urine Tony Kirill Ordonezo CNM Work Phone: Start: 08-17-2023 DRUG TOX MONITORIGN 6 W/ CONF,URINE Tony L Capriceo CNM Work Phone: Start: 08-17-2023 URINALYSIS MICROSCOPIC Tony Kirill Ordonezo CNM Work Phone: Start: 08-17-2023 Antibody screen rbc each serum technique Tony L Floro CNM Work Phone: Start: 08-17-2023 Hemoglobin glycosyla drake a1c Tony L Floro CNM Work Phone: Start: 08-17-2023 TSH W/REFLEX TO FT4 Beatriz hamlet L Capriceo CNM Work Phone: Plan of Treatment Date Care Activity Detail Author Start: 11-09-2023 End: 11-09-2023 Patient encounter procedure 11/09/2023 9:30 AM EDT Routine [facility] [address] [facility] [place] [phone] Tony Ham CNM [address] [place] [address] [facility] Start: 11-09-2023 End: 11-09-2023 Professional / ancillary services management 11/09/2023 9:30 AM EDT Ancillary Procedure [facility] [address] [place] [phone] [facility] Start: 10-12-2023 End: 10-12-2023 Patient encounter procedure 10/12/2023 2:30 PM EST Routine [facility] [address] [facility] [place] [phone] Tony Ham CNM [address] [place] [address] Arrived [facility] Comment on above: Arrived Start: 10-12-2023 End: 10-12-2024 US for US OB 14+ weeks anatomy scan Imaging Routine Screening, , for anatomic survey Expected: 10/12/2023, Expires: 10/12/2024 [facility] Work Phone: Comment on above: Expected: 10/12/2023 , Expires: 10/12/2024 Start: 10-12-2023 End: 10-12-2023 Patient encounter procedure 10/12/2023 11:30 AM EST Routine [facility] [address] [facility] [place] [phone] Tony Ham CNM [address] [place] [address] [facility] Start: 04-30-2023 Influenza vaccination Influenza Vacc ine (#1) [facility] Immunizations Immunization Date Immunization Notes Care Provider Ronda [facility] 07-09-2015 influenza virus vacc ine, unspecified formulation Tony Ham CNM Work Phone: [facility] Payers Date Payer Category Payer Managed Care HMO (unspecified) ABHI MOE [id number] 2023-Present [address] [place] [address] HMO [id number] 2023 Private Health Insurance [id number] 2022 Medicaid [id number] 2000 Unknown [id number] 2.16.840.1.883632.3.579.2. 1286 2000 Unknown [id number] 2.16.840.1.424042.3.579.2. 1259 1998 Unknown [id number] 2.16.840.1.137477.3.579.2. 9 1998 Unknown [id number] 2.16.840.1.481637.3.579.2. 1259 1998 Unknown [id number] 2.16.840.1.983758.3.579.2. 9 1998 Unknown [id number] 2.16.840.1.231819.3.579.2. 1259 1998 Unknown [id number] 2.16.840.1.289295.3.579.2. 9 1998 Unknown [id number] 2.16.840.1.364327.3.579.2. 1259 1998 Unknown [id number] 2.16.840.1.223062.3.579.2. 9 1998 Unknown [id number] 2.16.840.1.382080.3.579.2. 9 1998 Unknown [id number] 2.16.840.1.654507.3.579.2. 9 1998 Unknown [id number] 2.16.840.1.157032.3.579.2. 1259 1998 Unknown [id number] 2.16.840.1.388858.3.579.2. 1259 1998 Unknown [id number] 2.16.840.1.500926.3.579.2. 1259 1998 Unknown [id number] 2.16.840.1.878211.3.579.2. 1259 1959 Unknown [id number] Worker's Compensation [id number] Social History Date Type Detail Facility [...] also given office phone number and [facility] number to call in case of an emergency or after hours needs. PVU and all questions answered. documented in this encounter [facility] Evaluation note Note Date & Type Note Facility Evaluation note Diagnosis 8 weeks gestation of - Primary Amenorrhea Absence of menstruation Nausea/vomiting in Unspecified vomiting of , unspecified as to episode of care documented in this encounter [facility] Evaluation note Note Date & Type Note Facility Evaluation note Diagnosis Encounter for care of first , second trimester- Primary Screening, , for anatomic survey Encounter for anatomic survey documented in this encounter [facility] Summary Purpose Family History No Family History Records FoundNo Family History Records FoundNo Family History Records Found Advance Directives No Advanced Directives Records FoundNo Advanced Directives Records FoundNo Advanced Directives Records Found Reason for Referral Specialty Diagnoses / Procedures Referred By Conttrevin t Referred To Contact Obstetrics and Gynecology Diagnoses Amenorrhea 8 weeks gestation of Procedures AL OFFICE/OUTPATIENT NEW HIGH MDM 60 MINUTES Tony Ham CNM [address] [place] [address] Tony Ham CNM [address] [place] [address] Referral ID Status Reason Start Date Expiration Date Visits Requested Visits Authorized [id number] Pending Review Specialty Services Required 3 02/15/2024 1 1 Additional Source Comments INFORMATION SOURCE (unrecogn ized section and content) DATE CREATED AUTHOR 02/22/2018 [facility] DATE CREATED AUTHOR AUTHOR'S ORGANIZ ATION 12/04/2023 [facility] DATE CREATED AUTHOR AUTHOR'S ORGANIZ ATION 04/09/2024 [facility] EPIC Reason for Visit (unrecogniz ed section and content) Reason Comments Initial Visit Care Teams (unrecognized sec tion and content) On Air Announcer Relationship Specialty Start Date End Date Carmen Parker MD [address] [place] [address] PCP - General Family Medicine 01/05/23 On Air Announcer Relationship Specialty Start Date End Date Carmen Parker MD [address] [facility] [place] [address] PCP - General Family Medicine 01/05/23 On Air Announcer Relationship Specialty Start Date End Date Carmen Parker MD [address] [facility] [place] [address] PCP - General Family Medicine 01/05/23 FOR [...] BE BASED ON THE PRIMARY CLINICAL RECORDS. [facility] [employer] [facility]. provides no warranty or guarantee of the accuracy or completeness of information in this document.
[2024-04-10 21:17] VITALS: BP 128/76; PULSE 92; O2SAT 100
== END 2024-04-10 21:17 | disposition home or self-care (01) ==
LOC: ER 21:12
PROVIDERS: Emergency Provider Emergency Medicine; PCP Family Medicine
DX: Z39.2 Encounter for routine postpartum follow-up (principal)
CPT/HCPCS: 99283

== ENCOUNTER 2024-04-12 08:27 | Outpatient (OUT) | payer OTHER, MEDICAID, SELFPAY ==
--- OUTSIDE RECORDS SUMMARY | 2024-04-12 08:38 | XMS_ITS | CCD ---
Author Organization [facility] Care Team Providers Care Irrigation Specialist Name Role Phone DEMETRIUS CANTOR Unavailable Unavailable [...] NURon 2023 BILIRUBIN HIEN Negative Normal NEG [facility] Comment on above: Performed By: #### N UM #### [facility] ([id number]) [address] [place] [address] BLOOD/HGB HIEN Negative Normal NEG [facility] Comment on above: Performed By: #### N UM #### [facility] ([id number]) [address] [place] [address] 18157 GLUCOSE HIEN 100 mg/dL Abnormal NEG [facility] Comment on above: Performed By: #### N UM #### [facility] ([id number]) [address] [place] [address] KETONES HIEN Negative Normal NEG [facility] Comment on above: Performed By: #### N UM #### [facility] ([id number]) [address] [place] [address]9749 LEUKOCYTE ESTERASE HIEN Small Abnormal NEG [facility] Comment on above: Performed By: #### N UM #### [facility] ([id number]) [address] [place] [address] NITRITE HIEN Negative Normal NEG [facility] Comment on above: Performed By: #### N UM #### [facility] ([id number]) [address] [place] [address] 6[address]77 PH HIEN 7.0 Normal 5.0-8.5 [facility] Comment on above: Performed By: #### N UM #### [facility] ([id number]) [address] [place] [address] PROTEIN HIEN Negative Normal NEG [facility] Comment on above: Performed By: #### N UM #### [facility] ([id number]) [address] [place] [address] SPECIFIC GRAVITY HIEN 1.020 Normal 1.003-1.035 [facility] Comment on above: Performed By: #### N UM #### [facility] ([id number]) [address] [place] [address] UROBILINOGEN HIEN 0.2 eu/dL Normal <1.1 [facility] Comment on above: Performed By: #### N UM #### [facility] ([id number]) [address] [place] [address] US OB 14+ WEEKS ANATOMY SCAN on [...] and review of laboratory results Abnormal [facility] Preg Test, Ur Positive [facility] Bacteria identified Cx Nom ( U)on 08-19-2023 Appearance (U) Adequate [facility] Internal identifier for Provider [id number] [facility] Specimen source Nom (Unsp spec) URINE [facility] STATUS FINAL [facility] - Drug toxicology on 08-19-2023 7-Imeymxwghb-2,5-Dimethy l-3,3-Diphenylpyrrolidin e (EDDP) Ql (U) Negative NINF - 100 ng/mL [facility] Amphetamines Ql (U) Negative NINF - 5 00 ng/mL [facility] Barbiturates Ql (U) Negative NINF - 3 00 ng/mL [facility] Benzodiazepines Ql (U) Negative NINF - 100 ng/mL [facility] Benzoylecgonine Ql (U) Negative NINF - 150 ng/mL [facility] Opiates Ql (U) Negative NINF - 100 ng/mL [facility] oxyCODONE Ql (U) Negative NINF - 100 ng/mL [facility] Phencyclidine Ql (U) Negative NINF - 25 ng/mL [facility] Tetrahydrocannabinol Screen method >20 ng/mL Ql (U) Negative NINF - 20 ng/mL [facility] Laboratory - Microbiology an d Antimicrobial susceptibilityon 08-19-2023 Bacteria identified Cx Nom (U) SEE NOTE [facility] Comment on above: No Growth Laboratory - Urinalysison Bacteria LM.HPF (Urine sed) [#/Area] NONE SEEN NONE SEEN /HPF [facility] Epithelial cells.squamous LM.HPF (Urine sed) [#/Area] 0-5 < OR = 5 /HPF [facility] Hyaline casts (Urine sed) [#/Area] NONE SEEN NONE SEEN /LPF [facility] RBC LM.HPF (Urine sed) [#/Area] NONE SEEN < OR = 2 /HPF [facility] WBC LM.HPF (Urine sed) [#/Area] NONE SEEN < OR = 5 /HPF [facility] No Panel Informationon 08-19 (ALWAYS MESSAGE) [facility] Comment on above: See Note 1 Note 1 This drug testing is for medical treatment only. Analysis was performed as non-forensic testing and these results should be used only by healthcare providers to render diagnosis or treatment, or to monitor progress of medical conditions. For assistance with interpreting these drug results, please contact a [facility] Toxicology Specialist: [phone] ( ), M-F, 8am-6pm EST. SPLIT 08/17/2023 FROM [id number] [facility] Organization Information Site ID: QPT Name: [facility] Address: [address] [place] [address], [address] [place] [phone] Director: Marv Wilcox MD [facility] CBC panel Auto (Bld)on 08-18 Erythrocyte distribution width (RBC) [Ratio] 12.4 % 11.0 - 15.0 % [facility] Hematocrit (Bld) [Volume fraction] 42.2 % 35.0 - 45.0 % [facility] Hemoglobin (Bld) [Mass/Vol] 14.4 g/dL 11.7 - 15.5 g/dL [facility] MCH (RBC) [Entitic mass] 30.4 pg 27. 0 - 33.[address] [facility] MCHC (RBC) [Mass/Vol] 34.1 g/dL 32.0 - 36.0 g/dL [facility] MCV (RBC) [Entitic vol] 89.2 fL 80.0 - 100.[address] [facility] Platelet mean volume (Bld) [Entitic vol] 10.2 fL 7.5 - 12.[address] [facility] Platelets (Bld) [#/Vol] 272 10*3/uL [facility] RBC (Bld) [#/Vol] 4.73 10*6/uL [facility] WBC (Bld) [#/Vol] 8.7 10*3/uL [facility] Laboratory - Blood bankon ABO group Nom (Bld) A [facility] Blood group antibody screen Ql Detected [facility] Comment on above: Reference range No antibodies detected This assay is a screening test for the detection of red blood cell antibodies. The test is not to be used for pretransfusion screening or for the medical management of an alloimmunized . Rh Nom (Bld) Positive [facility] Comment on above: For additional information, please refer to http://Snapvine.[employer]/faq/MUQ183 (This link is being provided for informational/ educational purposes only.) Laboratory - Chemistry and C hemistry - challengeon 08-18-2023 Free T4 [Mass/Vol] 1.1 ng/dL 0.8 - 1.8 ng/dL [facility] TSH Qn 0.29 m[IU]/L Low mIU/L [facility] Comment on above: Reference Range > or = 20 Years 0.40-4.50 Ranges First trimester 0.26-2.66 Second trimester 0.55-2.73 Third trimester 0.43-2.91 Laboratory - Hematology and Cell countson 08-18-2023 HbA1c (Bld) [Mass fraction] 4.9 % [facility] Comment on above: For the purpose of s creening for the presence of diabetes: <5.7% Consistent with the absence of diabetes 5.7-6.4% Consistent with increased risk for diabetes (prediabetes) > or =6.5% Consistent with diabetes This assay result is consistent with a decreased risk of diabetes. Currently, no consensus exists regarding use of hemoglobin A1c for diagnosis of diabetes in children. According to [place] Diabetes Association (ADA) guidelines, hemoglobin A1c <7.0% represents optimal control in non- diabetic patients. Different metrics may apply to specific patient populations. Standards of Medical Care in Diabetes(ADA). Laboratory - Microbiology an d Antimicrobial susceptibilityon 08-18-2023 HBV surface Ag IA Ql Non-Reactive NON-REACTIVE [facility] Comment on above: For additional information, please refer to http://Snapvine.[employer]/faq/APV752 (This link is being provided for informational/ educational purposes only.) HCV Ab IA Ql Non-Reactive NON-REACTIVE [facility] Comment on above: HCV antibody was non-reactive. There is no laboratory evidence of HCV infection. In most cases, no further action is required. However, if recent HCV exposure is suspected, a test for HCV RNA (test code 89899) is suggested. For additional information please refer to http://Snapvine.[employer]/faq/GVJ67x1 (This link is being provided for informational/ educational purposes only.) HIV 1+2 Ab+HIV1 p24 Ag IA Ql Non-Reactive NON-REACTIVE [facility] Comment on above: HIV-1 antigen and HI [...] purpose. For additional information please refer to http://Snapvine.[employer]/faq/BIR513 (This link is being provided for informational/ educational purposes only.) The performance of this assay has not been clinically validated in patients less than 2 years old. Reagin Ab RPR Ql (S) Non-Reactive NON-REACTIVE [facility] Rubella virus IgG Qn (S) 11.70 [IU]/mL Index [facility] Comment on above: Index Interpretation ----- <0.90 Not consistent with immunity 0.90-0.99 Equivocal > or = 1.00 Consistent with immunity The presence of rubella IgG antibody suggests immunization or past or current infection with rubella virus. N. gonorrhoeae DNA JOHN+probe Ql (Cervical mucus)on 08-18-2023 (ALWAYS MESSAGE) [facility] Comment on above: The analytical perfo rmance characteristics of this assay, when used to test SurePath(TM) specimens have been determined by [facility]. The modifications have not been cleared or approved by the FDA. This assay has been validated pursuant to the CLIA regulations and is used for clinical purposes. For additional information, please refer to https://Snapvine.[employer]/faq/DJO553 (This link is being provided for information/ educational purposes only.) C. trachomatis rRNA JOHN+probe Ql (Unsp spec) Not detected NOT DETECTED [facility] N. gonorrhoeae rRNA JOHN+probe Ql (Unsp spec) Not detected NOT DETECTED [facility] Organization Information Site ID: QPT Name: [facility] Address: [address] [place] [address] Director: Marv Wilcox MD [facility] No Panel Informationon 08-18 Interpretation and review of laboratory results Abnormal [facility] MULTIPLE COLLECTION TIMES FOR SAME TEST TYPE. [facility] Organization Information Site ID: QPT Name: [facility] Address: [address] [place] [address] Director: Marv Wilcox MD [facility] US OB < 14 WEEKS EARLYon US [...] #/vol (Bld) 0.0 103/ul Normal 0.0-0.1 [facility] Comment on above: Performed By: #### C BC ####[facility] [address] [place], [place] [address]Rqmdes Arin Basophils/100 WBC Auto (Bld) 0.5 % Normal 0.2-2.0 [facility] Comment on above: Performed By: #### C BC ####[facility] [address] [place] [address] Arin Eosinophils 0.1 103/ul Normal 0.0-0.7 [facility] Comment on above: Performed By: #### C BC ####[facility] [address] [place] [address] Arin Eosinophils/100 leukocytes 1.8 % Normal 0.9-7.0 [facility] Comment on above: Performed By: #### C BC ####[facility] [address] [place] [address] Arin Erythrocyte distribution width Auto Ratio (RBC) 12.7 % Normal 11.0-15.0 [facility] Comment on above: Performed By: #### C BC ####[facility] [address] [place] [address] Arin Erythrocytes (RBC) 4.78 106/ul Normal 4.20-5.40 [facility] Comment on above: Performed By: #### C BC ####[facility] [address] [place] [address] Arin Hematocrit (HCT) 40.0 % Normal 36.0-48.0 [facility] Comment on above: Performed By: #### C BC ####[facility] [address] [place] [address] Arin Hemoglobin mass conc (Bld) 13.7 g/dL Normal 12.0-16.0 [facility] Comment on above: Performed By: #### C BC ####[facility] [address] [place] [address] Arin IG # 0.02 10e3/ul Normal 0.00-0.03 [facility] Comment on above: Performed By: #### C BC ####[facility] [address] [place] [address] Arin IG % 0.3 % Normal 0.0-0.5 [facility] Comment on above: Performed By: #### C BC ####[facility] [address] [place], [place] [address]Gerken Arin Lymphocytes 1.7 103/ul Normal 1.2-3.8 [facility] Comment on above: Performed By: #### C BC ####[facility] [address] [place] [id number] Arin Lymphocytes/100 leukocytes 28.4 % Normal 20.5-60.0 [facility] Comment on above: Performed By: #### C BC ####[facility] [address] [place] [address]Gerken Arin MANUAL DIFF REQ NO Normal [facility] Comment on above: Performed By: #### C BC ####[facility] [address] [place], [place] [address]Gerken Arin MCH 28.7 pg Normal 26.7-34.0 [facility] Comment on above: Performed By: #### C BC ####[facility] [address] [place] [address] Arin MCHC mass conc (RBC) 34.3 g/dL Normal 29.9-35.2 [facility] Comment on above: Performed By: #### C BC ####[facility] [address] [place], [place] [address]Gerken Arin MCV 83.7 fL Normal 81.0-99.0 [facility] Comment on above: Performed By: #### C BC ####[facility] [address] [place], [place] [address]Gerken Arin Monocytes 0.4 103/ul Normal 0.3-0.8 [facility] Comment on above: Performed By: #### C BC ####[facility] [address] [place] [address]Gerken Arin Monocytes/100 leukocytes 6.6 % Normal 1.7-12.0 [facility] Comment on above: Performed By: #### C BC ####[facility] [address] [place], [place] [address]Gerken Arin Neutrophils 3.8 103/ul Normal 1.4-6.5 [facility] Comment on above: Performed By: #### C BC ####[facility] [address] [place], [place] [address]ghada Hinkle Neutrophils/100 WBC Auto (Bld) 62.4 % Normal 43.0-75.0 [facility] Comment on above: Performed By: #### C BC ####[facility] [address] [place] [address]Shamar Hinkle Platelet mean volume (PMV) 9.6 fL Normal 9.5-13.5 [facility] Comment on above: Performed By: #### C BC ####[facility] [address] [place], [place] [address]Shamar Hinkle Platelets 198 103/ul Normal 150-450 [facility] Comment on above: Performed By: #### C BC ####[facility] [address] [place], [place] [address]Shamar Hinkle WBC (Leukocytes) 6.0 103/ul Normal 4.0-11.0 [facility] Comment on above: Performed By: #### C BC ####[facility] [address] [place] [address] Arin D-DIMERon 06-09-2017 D-DIMER COMMENTS SEE BELOW Normal [facility] Comment on above: Result Comment: Incr eases [...] generalizd hospitalization. Performed By: #### D DIM ####[facility] [address] [place], [place] [address]Gerken Arin Fibrin D-dimer FEU 0.23 ug/mL Normal 0.19-0.50 [facility] Comment on above: Performed By: #### D DIM ####[facility] [address] [place], [place] [address]Gerken Arin PROF CHEM 8 (BAS METB)on Anion gap 14.7 mmol/L Normal [facility] Comment on above: Performed By: #### B MP ####[facility] [address] [place] [address]Gerken Arin BUN/Creatinine Ratio 10.2 mg/mg Normal [facility] Comment on above: Performed By: #### B MP ####[facility] [address] [place] [address]Gerken Arin Calcium 9.3 mg/dL Normal 8.4-10.2 [facility] Comment on above: Performed By: #### B MP ####[facility] [address] [place] [address]Gerken Arin Chloride 108 mmol/L Critically high 98-107 [facility] Comment on above: Performed By: #### B MP ####[facility] [address] [place] [address] Arin CO2 21.0 mmol/L Critically low 22.0-30.0 [facility] Comment on above: Performed By: #### B MP ####[facility] [address] [place], [place] [address]Gerken Arin Creatinine 0.63 mg/dL Normal 0.52-1.04 [facility] Comment on above: Performed By: #### B MP ####[facility] [address] [place], [place] [address]Gerken Arin eGFR (non-black) mL/min/{1.73_m2} Normal >=60 [facility] Comment on above: Performed By: #### B MP ####[facility] [address] [place] [address]Gerken Arin Glucose mass conc 92 mg/dL Normal 74-106 [facility] Comment on above: Performed By: #### B MP ####[facility] [address] [place], [place] [address]Gerken Arin Potassium molar conc 3.7 mmol/L Normal 3.4-5.0 [facility] Comment on above: Performed By: #### B MP ####[facility] [address] [place], [place] [address]Bzwkkm Arin Sodium 140 mmol/L Normal 137-145 [facility] Comment on above: Performed By: #### B MP ####[facility] [address] [place], [place] [address]Joykmm Arin Urea nitrogen 6.0 mg/dL Critically low 6.4-19.3 [facility] Comment on above: Performed By: #### B MP ####[facility] [address] [place], [place] [address]Fslgvg Arin XR CHEST 2 Von 06-09-2017 XR CHEST 2 V [address] [place] [address] Patient: NORRIS CONTRERAS Exam Date: 06/09/2017DOB: 2000 Gender:F : DEMETRIUS CANTOR Admission #: [id number] : DR RADHIKA MCDONALD M.D. Order #: [id number] HERE TO VIEW EXAM RADIOLOGY REPORT PROCEDURE: [...] [facility] M.D. on 06/09/2017 at 13:06 Normal [facility] Vital Signs Date Time Vital Sign Value Performing Clinician Faci lity 10-12-2023 14:18-050 Body mass index (BMI) [Ratio] 22.78 kg/m2 CAPNIA [facility] Work Phone: [facility] 10-12-2023 14:18050 Body weight 63.05 kg TonyZuldi [facility] Work Phone: [facility] 10-12-2023 14:18-050 Diastolic blood pressure 70 mm[Hg] Tony Floro CNM Work Phone: [facility] 10-12-2023 14:18-0500 Systolic blood pressure 110 mm[Hg] Tony Floro CNM Work Phone: [facility] Encounters Encounter Date Encounter Type [...] 12-04-2023 Emergency department patient visit RADHIKA MCDONALD [facility] Start: 12-04-2023 End: 12-04-2023 ambulatory [facility] Start: 11-09-2023 End: 11-09-2023 ambulatory TONY L FLORO Not Available Start: 10-12-2023 End: 10-12-2023 Subsequent care visit Tony Kirill Floro CN Work Phone: [facility] OB Comment on above: Encounter [...] AM EDT Routine [facility] [address] [facility] [place] [id number] Tony Ham CNM [address] [place] [address] [facility] Start: 11-09-2023 End: 11-09-2023 Professional / ancillary services management 11/09/2023 9:30 AM EDT Ancillary Procedure [facility]TR[facility] [address] [place] [phone] [facility] Start: 10-12-2023 End: 10-12-2023 Patient encounter procedure 10/12/2023 2:30 PM EST Routine [facility] [address] [facility] [place] [id number] Tony Ham CNM [address] [place] [address] Arrived [facility] Comment on above: Arrived Start: 10-12-2023 End: 10-12-2024 US for US OB 14+ weeks anatomy scan Imaging Routine Screening, , for anatomic survey Expected: 10/12/2023, Expires: 10/12/2024 [facility] Work Phone: Comment on above: Expected: 10/12/2023 , Expires: 10/12/2024 Start: 10-12-2023 End: 10-12-2023 Patient encounter procedure 10/12/2023 11:30 AM EST Routine [facility] [address] [facility] [place] [phone] Tony Ham CNM [address] [place] [address] [facility] Start: 04-30-2023 Influenza vaccination Influenza Vacc ine (#1) [facility] Immunizations Immunization Date Immunization Notes Care Provider [facility] 07-09-2015 influenza virus vacc ine, unspecified formulation Tony Ham CNM Work Phone: [facility] Payers Date Payer Category Payer Managed Care HMO (unspecified) ABHI MOE [id number] 2023-Present [address] [place] [address] HMO [id number] 2023 Private Health Insurance [id number] 2022 Medicaid [id number] 2000 Unknown [id number] 2.16.840.1.168197.3.579.2. 1286 1998 Unknown [id number] 2.16.840.1.717486.3.579.2. 1259 1998 Unknown [id number] 2.16.840.1.699358.3.579.2. 9 1998 Unknown [id number] 2.16.840.1.424813.3.579.2. 1259 1998 Unknown [id number] 2.16.840.1.177152.3.579.2. 9 1998 Unknown [id number] 2.16.840.1.839773.3.579.2. 1259 1998 Unknown [id number] 2.16.840.1.107416.3.579.2. 9 1998 Unknown [id number] 2.16.840.1.071512.3.579.2. 1259 1998 Unknown [id number] 2.16.840.1.066961.3.579.2. 9 1998 Unknown [id number] 2.16.840.1.970256.3.579.2. 9 1998 Unknown [id number] 2.16.840.1.204219.3.579.2. 9 1998 Unknown [id number] 2.16.840.1.558430.3.579.2. 1259 1998 Unknown [id number] 2.16.840.1.130213.3.579.2. 1259 1998 Unknown [id number] 2.16.840.1.575649.3.579.2. 1259 1998 Unknown [id number] 2.16.840.1.372189.3.579.2. 1259 1959 Unknown [id number] Worker's Compensation [id number] [phone] Social History Date Type Detail Facility [...] also given office phone number and [facility] number to call in case of an emergency or after hours needs. PVU and all questions answered. documented in this encounter [facility] Evaluation note Note Date & Type Note Facility Evaluation note Diagnosis 8 weeks gestation of - Primary Amenorrhea Absence of menstruation Nausea/vomiting in Unspecified vomiting of , unspecified as to episode of care documented in this encounter [facility] Healthcare Evaluation note Note Date & Type Note Facility Evaluation note Diagnosis Encounter for care of first , second trimester- Primary Screening, , for anatomic survey Encounter for anatomic survey documented in this encounter [facility] Healthcare Summary Purpose Family History No Family History Records FoundNo Family History Records FoundNo Family History Records Found Advance Directives No Advanced Directives Records FoundNo Advanced Directives Records FoundNo Advanced Directives Records Found Reason for Referral Specialty Diagnoses / Procedures Referred By Conttrevin t Referred To Contact Obstetrics and Gynecology Diagnoses Amenorrhea 8 weeks gestation of Procedures PA OFFICE/OUTPATIENT NEW HIGH MDM 60 MINUTES Tony Ham CNM [address] [place] [address] Tony Ham CNM [address] [place] [address] Referral ID Status Reason Start Date Expiration Date Visits Requested Visits Authorized [id number] Pending Review Specialty Services Required 3 02/15/2024 1 1 Additional Source Comments INFORMATION SOURCE (unrecogn ized section and content) DATE CREATED AUTHOR 02/22/2018 [facility] pital DATE CREATED AUTHOR AUTHOR'S ORGANIZ ATION 12/04/2023 [facility] [place] DATE CREATED AUTHOR AUTHOR'S ORGANIZ ATION 04/09/2024 [facility] dical Specialists EPIC Reason for Visit (unrecogniz ed section and content) Reason Comments Initial Visit Care Teams (unrecognized sec tion and content) Irrigation Specialist Relationship Specialty Start Date End Date Carmen Parker MD [address] [place] [address] PCP - General Family Medicine 01/05/23 Irrigation Specialist Relationship Specialty Start Date End Date Carmen Parker MD [address] [facility] [place] [address] PCP - General Family Medicine 01/05/23 Irrigation Specialist Relationship Specialty Start Date End Date Carmen Parker MD [address] [facility] [place] [address] PCP - General Family Medicine 01/05/23 FOR [...] BE BASED ON THE PRIMARY CLINICAL RECORDS. [facility] [employer] [facility]. provides no warranty or guarantee of the accuracy or completeness of information in this document.
== END 2024-04-12 13:50 | disposition home or self-care (01) ==
LOC: FBCO 08:29
PROVIDERS: PCP Family Medicine; Visit Provider Midwife
DX: Z39.1 Encounter for care and examination of lactating mother (principal)